=== PATIENT | male | born 1965 | race Caucasian/White ===

== ENCOUNTER 2018-05-23 17:09 | Emergency (ER) | payer MEDICAID, SELFPAY ==
--- NOTE | 2018-05-23 17:26 | NUR.NOTE ---
persistent productive cough for 10 days. states that he also had pain in the lung with the breathing
[2018-05-23 17:29] VITALS: BP 140/70; PULSE 101; RESP 17; TEMP 36; O2SAT 98
[2018-05-23] MEDS: predniSONE 20 MG TAB 60 MG PO (19:05)
[2018-05-23] MEDS: Azithromycin 250 MG TAB 500 MG PO (19:05)
[2018-05-23] MEDS: Albuterol/Ipratropium 3 ML UPD VIAL UPD (19:05)
--- NOTE | 2018-05-23 19:46 | DI.RAD_ITS ---
SYMPTOM/DIAGNOSIS: COUGH, ? PNEUMONIA PA AND LATERAL CHEST: The heart is not enlarged. The lungs are clear. No pleural effusion is seen. Previously noted left lung radiodensities seen on previous chest film of 09/05/17 have resolved. CONCLUSION: No evidence of acute process.
--- NOTE | 2018-05-23 20:09 | DI.VRAD_ITS ---
EXAM: XR Chest, 2 Views EXAM DATE/TIME: 05/23/2018 6:02 PM CLINICAL HISTORY: 53 years old, male; Signs and symptoms; Cough TECHNIQUE: XR of the chest, 2 views. COMPARISON: CR PORTABLE CHEST ONE VIEW 09/05/2017 10:12 AM FINDINGS: Lungs: Unremarkable. No consolidation. Pleural space: Unremarkable. No pleural effusion. No pneumothorax. Heart/Mediastinum: Unremarkable. No cardiomegaly. Bones/joints: No acute skeletal abnormalities. Degenerative changes of the thoracic spine. IMPRESSION: Negative for acute thoracic pathology. Dictated and Authenticated by: Mike Almaraz MD. Ordering:BELINDA Poon MD
--- NOTE | 2018-05-23 20:11 | ED.GENADUL_ITS ---
Discharge Plan Disposition Patient Disposition: HOME Condition: Good Discharge Details Chief Complaint: RespSymp Clinical Impression: COPD exacerbation Primary Care Provider: Clary Haywood ED Provider: Cleve Mcclendon Home Meds and New Rx's Prescriptions: New azithromycin 250 mg tablet 250 mg PO DAILY 4 Days Qty: 4 RF: 0 prednisone 20 mg tablet 60 mg PO DAILY 5 Days Qty: 15 RF: 0 No Action Advair Diskus 1 EACH blister with device 1 puff Inhalation BID RF: 0 glipizide 10 MG tablet 20 mg PO DAILY RF: 0 acarbose [Precose] 50 MG tablet 50 mg PO TID RF: 0 atenolol 25 MG tablet 25 mg PO DAILY RF: 0 omeprazole 20 MG capsule,delayed release(DR/EC) 20 mg PO DAILY RF: 0 B-complex with vitamin C 1 EACH tablet 1 ea PO DAILY RF: 0 Novolog PenFill U-100 Insulin 100 UNIT/1 ML cartridge 20 unit SQ QMEALS RF: 0 Spiriva with HandiHaler 1 PUFF capsule, w/inhalation device 1 puff Inhalation DAILY Qty: 1 RF: 0 ProAir HFA 200 PUFF HFA aerosol inhaler 2 puff Inhalation BID RF: 0 Latuda 80 MG tablet 80 mg PO DAILY RF: 0 ipratropium-albuterol 3 ML solution for nebulization 3 ml UPD Q6H PRN PRNQty: 30 RF: 0 atorvastatin [Lipitor] 80 MG tablet 1 tab PO HS RF: 0 lisinopril 20 MG tablet 20 mg PO DAILY RF: 0 nicotine [Nicoderm CQ] 1 EACH patch 24 hour 21 mg Transdermal DAILY RF: 0 epinephrine [EpiPen 2-Cristian] 0.3 MG/0.3 ML auto-injector 1 ea UD PRN PRNRF: 0 prazosin 2 MG capsule 4 mg PO HS RF: 0 Lantus Solostar U-100 Insulin 100 UNIT/ML insulin pen 40 unit Sub-Q QPM RF: 0 Lantus Solostar U-100 Insulin 100 UNIT/ML insulin pen 120 unit SQ QAM RF: 0 Discharge Instructions Instructions: COPD (Chronic Obstructive Pulmonary Disease) (ED) Additional Instructions: Please take the steroid as directed. Please take the antibiotic as directed. Please use your breathing treatment every 4 hours for the next 48 hours. If you notice any worsening of your symptoms, or any new symptoms such as vomiting, diarrhea, fever, chills, shortness of breath, chest pain, numbness, weakness, or fainting , please return immediately to the emergency department for reevaluation. Please follow up with your primary care provider as soon as possible for reassessment and reevaluation. As always, it was a pleasure participating in your medical care today. Referrals: Clary Haywood [Primary Care Provider] - Discharge Data Discharge Date/Time-TO BE ENTERED AT DEPARTURE: 05/23/18 20:22 Medical Decision Making This is a pleasant 53-year-old male who presents for 10 days of cough with productive yellow sputum, he denies any significant chest pain, but does have a mild amount of pain only when coughing. He demonstrates no red flags concerning for pulmonary embolism. He has no evidence of significant tachycardia or hypoxemia or tachypnea. Patient was given 3 breathing treatments here in the emergency department and had a notable improvement of his symptomatology. I have given steroid, because of his risk factors of reactive airway disease and chronicity of his symptoms in conjunction with the productive yellow sputum and concern for worsening bronchitis versus mild pneumonia. X-ray was ordered shows no signs of acute significant pneumonia however with the patient's risk factors and COPD exacerbation I do feel that he would benefit from antibiotics. We will give azithromycin, continued recommendation for home inhaler, steroids, and close follow-up with his PCP. I have extensively reviewed the treatment plan and discharge instructions with the patient. I have addressed all patient concerns at this time. The patient was made aware of what symptoms to monitor for that would warrant a return to the emergency department. Discussed the plan with the patient, they demonstrate verbal understanding and agreement with our assessment and plan at this time. FINDINGS: Lungs: Unremarkable. No consolidation. Pleural space: Unremarkable. No pleural effusion. No pneumothorax. Heart/Mediastinum: Unremarkable. No cardiomegaly. Bones/joints: No acute skeletal abnormalities. Degenerative changes of the thoracic spine. IMPRESSION: Negative for acute thoracic pathology. Thank you for allowing us to participate in the care of your patient. Dictated and Authenticated by: Mike Hahn MD HPI General Date/Time Provider Initiated Documentation: 05/23/18 17:51 . HPI Narrative: This is a 53-year-old male with a past medical history of tobacco a buse, hypertension, high cholesterol, and asthma. He presents today for evaluation of 10 days of cough, with productive yellow sputum. He is normally on a baseline of 2 L of home oxygen at all times. Patient denies any chest pressure, arm pain, neck pain or shoulder pain. He denies any exertional chest pain. He does admit to mild pain only when he coughs. Denies PE risk factors such as recent long car rides, immobilization, recent surgery, prior history of DVT or PE, family history of PE or DVT, morbid obesity, exogenous estrogen and smoking, hemoptysis, history of cancer. Patient states that he had a similar episode like this last year, however he let it go much longer and felt notably worse at that time. He states that aside for being more mild feels similar to that last episode. At that time he was diagnosed with pneumonia and reactive airway disease exacerbation. Patient denies any IV or illicit drug use. Denies any fever or chills. No other complaints at this time. Related Data Home Medications Medication Instructions Recorded Confirmed B-complex with vitamin C 1 ea PO DAILY 08/09/12 05/23/18 Novolog PenFill U-100 Insulin 20 unit SQ QMEALS 08/09/12 05/23/18 acarbose [Precose] 50 mg PO TID 08/09/12 05/23/18 atenolol 25 mg PO DAILY 08/09/12 05/23/18 glipizide 20 mg PO DAILY 08/09/12 05/23/18 omeprazole 20 mg PO DAILY 08/09/12 05/23/18 Advair Diskus 1 puff INHALATION BID puff 08/28/12 05/23/18 Spiriva with HandiHaler 1 puff INHALATION DAILY #1 laura 07/08/13 05/23/18 ProAir HFA 2 puff INHALATION BID 12/29/15 05/23/18 Lantus Solostar U-100 Insulin 40 unit SUB-Q QPM 09/04/17 05/23/18 Lantus Solostar U-100 Insulin 120 unit SQ QAM 09/04/17 05/23/18 atorvastatin [Lipitor] 1 tab PO HS 09/04/17 05/23/18 epinephrine [EpiPen 2-Cristian] 1 ea UD PRN PRN 09/04/17 05/23/18 lisinopril 20 mg PO DAILY 09/04/17 05/23/18 nicotine [Nicoderm CQ] 21 mg TRANSDERMAL DAILY 09/04/17 05/23/18 prazosin 4 mg PO HS 09/04/17 05/23/18 Latuda 80 mg PO DAILY 09/05/17 05/23/18 ipratropium-albuterol 3 ml UPD Q6H PRN PRN #30 vial 09/08/17 05/23/18 azithromycin 250 mg PO DAILY 4 Days #4 tab 05/23/18 prednisone 60 mg PO DAILY 5 Days #15 tab 05/23/18 Previous Rx's Medication Instructions Recorded Spiriva with HandiHaler 1 puff INHALATION DAILY #1 laura 07/08/13 ipratropium-albuterol 3 ml UPD Q6H PRN PRN #30 vial 09/08/17 azithromycin 250 mg PO DAILY 4 Days #4 tab 05/23/18 prednisone 60 mg PO DAILY 5 Days #15 tab 05/23/18 Allergies Allergy/AdvReac Type Severity Reaction Status Date / Time Fish Containing Products Allergy Severe Anaphylaxsi Verified 09/05/17 09:53 s tree nut [Tree Nut] Allergy Severe Anaphylaxsi Verified 09/05/17 09:53 s metformin Allergy Unknown Per office Verified 09/05/17 09:53 H&P venlafaxine HCl AdvReac Severe seizures Verified 09/05/17 09:53 [From Effexor] diclofenac [Diclofenac] AdvReac Intermediate Headache Verified 09/05/17 09:53 misoprostol AdvReac Intermediate Headache Verified 09/05/17 09:53 General Stated Complaint: RespSymp LINDY: 4 Review of Systems Review of Systems All systems reviewed & are unremarkable except as noted in HPI and below PFSH Medical History Diabetes Hypertension Obesity Surgical History Colonoscopy - MAC Social History current occupational status: unemployed current occupation: off work right now until july Smoking/Tobacco Use Status: Current every day tobacco type: cigarettes alcohol intake: current alcohol intake frequency: a few times a month substance use type: does not use Exam Narrative Exam Narrative: 1.Const: Well-nourished, Well-developed, appearing stated age 2.Eyes: PERRL, no conjunctival injection, and symmetrical lids. 3.ENT: Atraumatic external nose and ears. Moist MM. Neck: Symmetric, trachea midline, No thyromegaly. 4.CVS: +S1/S2, No murmurs or gallops. Peripheral pulses 2+ and equal in all extremities. Brisk capillary refill in all extremities. 5.RESP: Unlabored respiratory effort. Minimal wheeze, no rhonchi or rales. 6.GI: Soft, Nontender/Nondistended, No hepatosplenomegaly. No guarding or rebound. 7.MSK: Normocephalic/Atraumatic, Extremities w/o deformity or ttp No cyanosis or clubbing, Normal movement of all extremities 8.Skin: Warm, Dry. No rashes or lesions. 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 Sensation grossly intact, no focal neurologic deficits. 10.Psych: (AAO) x3. Appropriate mood and affect Course Vital Signs Temperature 36 C L 05/23/18 17:29 Pulse 101 H 05/23/18 17:29 Respiratory Rate 17 05/23/18 17:29 Blood Pressure 140/70 05/23/18 17:29 Pulse Oximetry 98 05/23/18 17:29 Temperature 36 C L 05/23/18 17:29 Temperature Source Skin 05/23/18 17:29 Pulse 101 H 05/23/18 17:29 Respiratory Rate 17 05/23/18 17:29 Blood Pressure 140/70 05/23/18 17:29 Blood Pressure Position Sitting 05/23/18 17:29 Pulse Oximetry 98 05/23/18 17:29 Oxygen Delivery Method Room Air 05/23/18 17:29 Oxygen Flow Rate 0 05/23/18 17:29 Pain Level 4 05/23/18 17:29
[2018-05-23 20:19] VITALS: BP 148/73; PULSE 100; RESP 18; TEMP 36.8; O2SAT 94
== END 2018-05-23 20:22 | disposition home or self-care (01) ==
PROVIDERS: Emergency Provider Student in an Organized Health Care Education/Training Program; PCP Nurse Practitioner Family
DX: J44.1 Chronic obstructive pulmonary disease with (acute) exacerbation (principal); I10 Essential (primary) hypertension; F17.210 Nicotine dependence, cigarettes, uncomplicated
CPT/HCPCS: 94640; 99283; 71046; J7512; J7620

== ENCOUNTER 2018-06-06 12:06 | Emergency (ER) | payer MEDICAID, SELFPAY ==
[2018-06-06 12:08] VITALS: BP 138/85; PULSE 97; RESP 18; TEMP 36.6; O2SAT 97
--- NOTE | 2018-06-06 12:44 | W.ED.GENAD ---
Discharge Plan Disposition Patient Disposition: HOME Condition: Good Discharge Details Chief Complaint: RespSymp Clinical Impression: Pneumonia, COPD (chronic obstructive pulmonary disease), Cough Primary Care Provider: Clary Haywood ED Provider: Cleve Mcclendon Home Meds and New Rx's Prescriptions: New doxycycline hyclate 100 mg tablet 100 mg PO BID Qty: 20 RF: 0 prednisone 10 mg tablet 10 mg PO DAILY Qty: 50 RF: 0 ipratropium-albuterol 0.5 mg-3 mg(2.5 mg base)/3 mL solution for nebulization 3 ml IH Q6H Qty: 90 RF: 0 No Action Advair Diskus 1 EACH blister with device 1 puff Inhalation BID RF: 0 glipizide 10 MG tablet 20 mg PO DAILY RF: 0 acarbose [Precose] 50 MG tablet 50 mg PO TID RF: 0 atenolol 25 MG tablet 25 mg PO DAILY RF: 0 omeprazole 20 MG capsule,delayed release(DR/EC) 20 mg PO DAILY RF: 0 B-complex with vitamin C 1 EACH tablet 1 ea PO DAILY RF: 0 Novolog PenFill U-100 Insulin 100 UNIT/1 ML cartridge 20 unit SQ QMEALS RF: 0 Spiriva with HandiHaler 1 PUFF capsule, w/inhalation device 1 puff Inhalation DAILY Qty: 1 RF: 0 ProAir HFA 200 PUFF HFA aerosol inhaler 2 puff Inhalation BID RF: 0 Latuda 80 MG tablet 80 mg PO DAILY RF: 0 ipratropium-albuterol 3 ML solution for nebulization 3 ml UPD Q6H PRN PRNQty: 30 RF: 0 atorvastatin [Lipitor] 80 MG tablet 1 tab PO HS RF: 0 lisinopril 20 MG tablet 20 mg PO DAILY RF: 0 nicotine [Nicoderm CQ] 1 EACH patch 24 hour 21 mg Transdermal DAILY RF: 0 epinephrine [EpiPen 2-Cristian] 0.3 MG/0.3 ML auto-injector 1 ea UD PRN PRNRF: 0 prazosin 2 MG capsule 4 mg PO HS RF: 0 Lantus Solostar U-100 Insulin 100 UNIT/ML insulin pen 40 unit Sub-Q QPM RF: 0 Lantus Solostar U-100 Insulin 100 UNIT/ML insulin pen 120 unit SQ QAM RF: 0 Discharge Instructions Instructions: COPD (Chronic Obstructive Pulmonary Disease) (ED), Pneumonia (ED) Additional Instructions: Please take the antibiotic and steroid as directed. Please take your breathing treatments every 6 hours as directed. Please follow-up promptly with Dr. Clary Haywood next week. If you notice any worsening of your symptoms, or any new symptoms such as vomiting, diarrhea, fever, chills, shortness of breath, chest pain, numbness, weakness, or fainting , please return immediately to the emergency department for reevaluation. Please follow up with your primary care provider as soon as possible for reassessment and reevaluation. As always, it was a pleasure participating in your medical care today. Referrals: Clary Haywood [Primary Care Provider] - Medical Decision Making This is a very pleasant 53-year-old male who presents for evaluation of cough. He was seen and treated here 14 days ago for cough, was diagnosed with mild pneumonia, vital signs were reassuring at that time. He was given azithromycin and prednisone eating treatments, he is notably improved initially during the treatment course, but once his steroids and azithromycin work on his symptoms gradually returned, he now states that he is at the baseline of where he was at before. Physical exam demonstrates minimal wheeze, very reassuring vital signs with no evidence of severe tachycardia, tachypnea, hypoxemia. I did discuss with the patient reevaluation with EKG, labs and chest x-ray and the patient made it very clear that he did not want any additional workup. Although I do not think that this is ideal I do think that it is reasonable as he has reassuring vital signs, and no significant change in his clinical disposition. He shows no signs of acute respiratory distress or other abnormality. Respecting the patient's wishes and the patient demonstrating full understanding of the risks of this course of action we will prescribe doxycycline, refill his DuoNeb treatments, and do a more prolonged steroid course. I discussed the importance of close follow-up and prompt return if he notes any worsening of his symptoms. And I always extended the offer that he can have the full evaluation and workup at any time if he so please. I have extensively reviewed the treatment plan and discharge instructions with the patient. I have addressed all patient concerns at this time. The patient was made aware of what symptoms to monitor for that would warrant a return to the emergency department. Discussed the plan with the patient, they demonstrate verbal understanding and agreement with our assessment and plan at this time. HPI General Date/Time Provider Initiated Documentation: 06/06/18 12:24. HPI Narrative: This is a pleasant 53-year-old male with a past medical history of COPD, with a baseline of 2 L of home oxygen, diabetes, hypertension, high cholesterol, who presents today for evaluation of cough. The patient was seen and assessed here 14 days ago where he was diagnosed with COPD and clinical pneumonia. He had a notable cough at that time with productive sputum. The patient was started on prednisone and a Z-Cristian, as well as continued on his inhaler. Patient states that his symptoms nearly completely resolved at the end of the course of the steroids and the antibiotic however his symptoms gradually returned and came back. He now continues to have cough, with productive green and yellow sputum. He denies any hemoptysis. He denies any significant chest pain, severe pleuritic chest pain, chest heaviness, arm neck or shoulder pain, exertional chest pain, fever, chills, vomiting, diarrhea, numbness tingling or weakness. He denies any other new complaints or other modifying factors. Related Data Home Medications Medication Instructions Recorded Confirmed B-complex with vitamin C 1 ea PO DAILY 08/09/12 05/23/18 Novolog PenFill U-100 Insulin 20 unit SQ QMEALS 08/09/12 05/23/18 acarbose [Precose] 50 mg PO TID 08/09/12 05/23/18 atenolol 25 mg PO DAILY 08/09/12 05/23/18 glipizide 20 mg PO DAILY 08/09/12 05/23/18 omeprazole 20 mg PO DAILY 08/09/12 05/23/18 Advair Diskus 1 puff INHALATION BID puff 08/28/12 05/23/18 Spiriva with HandiHaler 1 puff INHALATION DAILY #1 laura 07/08/13 05/23/18 ProAir HFA 2 puff INHALATION BID 12/29/15 05/23/18 Lantus Solostar U-100 Insulin 40 unit SUB-Q QPM 09/04/17 05/23/18 Lantus Solostar U-100 Insulin 120 unit SQ QAM 09/04/17 05/23/18 atorvastatin [Lipitor] 1 tab PO HS 09/04/17 05/23/18 epinephrine [EpiPen 2-Cristian] 1 ea UD PRN PRN 09/04/17 05/23/18 lisinopril 20 mg PO DAILY 09/04/17 05/23/18 nicotine [Nicoderm CQ] 21 mg TRANSDERMAL DAILY 09/04/17 05/23/18 prazosin 4 mg PO HS 09/04/17 05/23/18 Latuda 80 mg PO DAILY 09/05/17 05/23/18 ipratropium-albuterol 3 ml UPD Q6H PRN PRN #30 vial 09/08/17 05/23/18 doxycycline hyclate 100 mg PO BID #20 tab 06/06/18 ipratropium-albuterol 3 ml IH Q6H #90 ml 06/06/18 prednisone 10 mg PO DAILY #50 tab 06/06/18 Previous Rx's Medication Instructions Recorded Spiriva with HandiHaler 1 puff INHALATION DAILY #1 laura 07/08/13 ipratropium-albuterol 3 ml UPD Q6H PRN PRN #30 vial 09/08/17 doxycycline hyclate 100 mg PO BID #20 tab 06/06/18 ipratropium-albuterol 3 ml IH Q6H #90 ml 06/06/18 prednisone 10 mg PO DAILY #50 tab 06/06/18 Allergies Allergy/AdvReac Type Severity Reaction Status Date / Time Fish Containing Products Allergy Severe Anaphylaxsi Verified 06/06/18 12:12 s tree nut [Tree Nut] Allergy Severe Anaphylaxsi Verified 06/06/18 12:12 s metformin Allergy Unknown Per office Verified 06/06/18 12:12 H&P venlafaxine HCl AdvReac Severe seizures Verified 06/06/18 12:12 [From Effexor] diclofenac [Diclofenac] AdvReac Intermediate Headache Verified 06/06/18 12:12 misoprostol AdvReac Intermediate Headache Verified 06/06/18 12:12 General Stated Complaint: RespSymp LINDY: 3 Review of Systems Review of Systems All systems reviewed & are unremarkable except as noted in HPI and below PFSH Medical History Diabetes Hypertension Obesity Surgical History Colonoscopy - MAC Social History current occupational status: unemployed current occupation: off work right now until july Smoking and Tabacco status: Current every day tobacco type: cigarettes alcohol intake: current alcohol intake frequency: a few times a month substance use type: does not use Exam Narrative Exam Narrative: 1.Const: Well-nourished, Well-developed, appearing stated age 2.Eyes: PERRL, no conjunctival injection, and symmetrical lids. 3.ENT: Atraumatic external nose and ears. Moist MM. Neck: Symmetric, trachea midline, No thyromegaly. 4.CVS: +S1/S2, No murmurs or gallops. Peripheral pulses 2+ and equal in all extremities. Brisk capillary refill in all extremities. 5.RESP: Unlabored respiratory effort. Minimal wheeze, no significant crackles. No rhonchi. 6.GI: Soft, Nontender/Nondistended, No hepatosplenomegaly. No guarding or rebound. 7.MSK: Normocephalic/Atraumatic, Extremities w/o deformity or ttp No cyanosis or clubbing, Normal movement of all extremities, no calf tenderness. 8.Skin: Warm, Dry. No rashes or lesions. 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 Sensation grossly intact, no focal neurologic deficits. 10.Psych: (AAO) x3. Appropriate mood and affect Course Vital Signs Temperature 36.6 C 06/06/18 12:08 Pulse 97 H 06/06/18 12:08 Respiratory Rate 18 06/06/18 12:08 Blood Pressure 138/85 06/06/18 12:08 Pulse Oximetry 97 06/06/18 12:08 Temperature 36.6 C 06/06/18 12:08 Temperature Source Temporal Artery Scan 06/06/18 12:08 Pulse 97 H 06/06/18 12:08 Respiratory Rate 18 06/06/18 12:08 Respiratory Effort Incrsd Work of Breathing 06/06/18 12:11 Blood Pressure 138/85 06/06/18 12:08 Blood Pressure Position Sitting 06/06/18 12:08 Pulse Oximetry 97 06/06/18 12:08 Oxygen Delivery Method Nasal Cannula 06/06/18 12:08 Oxygen Flow Rate 2 06/06/18 12:08 Pain Level 0 06/06/18 12:08
--- NOTE | 2018-06-06 14:14 | NUR.NOTE ---
Nursing Note: Patient called as he had wanted cough medication> MD gave this scribe order to call into pharmacy Tessalon Perles 100mg po TID Qty [address] Mcclendon. Pharmacist took order over phone.
== END 2018-06-06 12:55 | disposition home or self-care (01) ==
PROVIDERS: Emergency Provider Student in an Organized Health Care Education/Training Program; PCP Nurse Practitioner Family
DX: J18.9 Pneumonia, unspecified organism (principal); J44.9 Chronic obstructive pulmonary disease, unspecified; I10 Essential (primary) hypertension; E11.9 Type 2 diabetes mellitus without complications; Z99.2 Dependence on renal dialysis; Z79.4 Long term (current) use of insulin
CPT/HCPCS: 99283

== ENCOUNTER 2018-06-27 03:10 | Outpatient (CLI) | payer MEDICAID, SELFPAY ==
--- NOTE | 2018-06-27 10:00 | PFT_ITS ---
PULMONARY FUNCTION TEST REPORT DATE OF SERVICE: June 27, 2018 REQUESTING PROVIDER: Clary Haywood N.P. Spirometry shows moderately severe obstructive airways disease with no significant bronchodilator response. Lung volumes show no evidence of restriction. Diffusion capacity normal. Airways resistance elevated. IMPRESSION: Moderately severe obstructive airways disease with no significant bronchodilator response. When this study was compared to previous from 10/22/12, 04/04/13 and 06/11/15, the patient has a fairly stable FVC, but overall has improved by 130 cc's. FEV1 has also mostly remained stable, but overall has improved by 310 cc's. OLEG/eder D/
[2018-06-27] MEDS: Inhaler, Assist Device 1 EACH MC (11:23)
[2018-06-27] MEDS: Albuterol HFA 18 GM 200 PUFF INH IH (11:23)
== END 2018-06-27 03:30 ==
PROVIDERS: PCP Nurse Practitioner Family; Visit Provider Nurse Practitioner Family
DX: J44.9 Chronic obstructive pulmonary disease, unspecified (principal); F17.210 Nicotine dependence, cigarettes, uncomplicated
CPT/HCPCS: 94060; 94150; 94726; 94729

== ENCOUNTER 2018-07-06 00:38 | Outpatient (CLI) | payer MEDICAID, SELFPAY ==
--- NOTE | 2018-07-06 10:46 | MERGE_ITS ---
*[facility]* *[facility]* [address] [place] [address] Date of study: 07/06/2018 Transthoracic Echocardiography M-mode, complete 2D, complete spectral Doppler, and color Doppler *STUDY CONCLUSIONS* Summary: 1. Left ventricle: The cavity size was normal. Wall thickness was increased in a pattern of mild LVH. Systolic function was normal. The estimated ejection fraction was 60-65%. Wall motion was normal; there were no regional wall motion abnormalities. 2. Right ventricle: The cavity size was normal. Wall thickness was normal. Systolic function was normal. *PATIENT PRESENTATION* Height: 160cm ((63in) ) S/D Pressure: 138 / 84 Weight: 108.9kg ((239.5lb) ) BSA: 2.26m^2 Test start time: 10:45 AM. Test stop time: 11:45 AM. PERFORMING Unknown PERFORMING [facility] [employer] MATE Mikaela Boudreaux Sabine J REFERRING Watson, Sabine J *PROCEDURE DATA* Procedure information: This study was interpreted by [facility]. Pertinent images and digital data are archived for permanent storage and are available for subsequent review. Comparison was made to the study of 12/18/2014. Study status: Routine. Transthoracic echocardiography. M-mode, complete 2D, complete spectral Doppler, and color Doppler. A Transthoracic Echocardiogram was performed. Scanning was performed from the parasternal, apical, subcostal, and suprasternal notch acoustic windows. Images were obtained using an [facility] 2000 cardiac ultrasound machine. Study completion: The patient tolerated the procedure well. History: PMH: Abnormal EKG. *CARDIAC ANATOMY* Left ventricle: The cavity size was normal. Wall thickness was increased in a pattern of mild LVH. Systolic function was normal. The estimated ejection fraction was 60-65%. Wall motion was normal; there were no regional wall motion abnormalities. Aortic valve: Trileaflet; normal thickness leaflets. Mobility was not restricted. Doppler: Transvalvular velocity was within the normal range. There was no stenosis. There was no significant regurgitation. VTI ratio of LVOT to aortic valve: 0.82. Valve area (VTI): 2.6cm^2. Indexed valve area (VTI): 1.1cm^2/m^2. Peak velocity ratio of LVOT to aortic valve: 0.72. Valve area (Vmax): 2.2cm^2. Indexed valve area (Vmax): 1cm^2/m^2. Mean velocity ratio of LVOT to aortic valve: 0.67. Valve area (Vmean): 2.1cm^2. Indexed valve area (Vmean): 0.9cm^2/m^2. Mean gradient (S): 5.8mm Hg. Peak gradient (S): 12.5mm Hg. Aorta: Aortic root: The aortic root was normal in size. Ascending aorta: The ascending aorta was normal in size. Mitral valve: Structurally normal valve. Mobility was not restricted. Doppler: Transvalvular velocity was within the normal range. There was no evidence for stenosis. There was no significant regurgitation. Valve area by pressure half-time: 3.2cm^2. Indexed valve area by pressure half-time: 1.4cm^2/m^2. Peak gradient (D): 2.7mm Hg. Left atrium: The atrium was normal in size. Right ventricle: The cavity size was normal. Wall thickness was normal. Systolic function was normal. Pulmonic valve: Doppler: Transvalvular velocity was within the normal range. There was no evidence for stenosis. There was no significant regurgitation. Peak gradient (S): 3.8mm Hg. Tricuspid valve: Structurally normal valve. Doppler: Transvalvular velocity was within the normal range. There was no evidence for stenosis. There was trivial regurgitation. Pulmonary artery: Pulmonary systolic pressure was within the normal range. Right atrium: The atrium was normal in size. Pericardium: A prominent pericardial fat pad was present. There was no pericardial effusion. Systemic veins: Inferior vena cava: The vessel was normal in size. The respirophasic diameter changes were in the normal range (greater than or equal to 50%), consistent with normal central venous pressure. Measurements Left ventricle Value Reference LV ID, ED, PLAX 4.4 cm 3.5 - 6.0 LV ID, ES, PLAX 2.8 cm 2.1 - 4.0 LV PW thickness, ED, PLAX 1.1 cm LV end-diastolic volume, 1-p A2C 71 ml LV ejection fraction, 1-p A2C 42 % LV end-diastolic volume, 1-p A4C 85 ml LV ejection fraction, 1-p A4C 52 % LV e', lateral 0.094 m/sec LV E/e', lateral 9 LV e', medial 0.103 m/sec LV E/e', medial 8 LV e', average 0.098 m/sec LV E/e', average 8 Ventricular septum Value Reference IVS thickness, ED, PLAX 1.1 cm LVOT Value Reference LVOT ID, A-P 2.0 cm LVOT area 3.1 cm^2 LVOT peak velocity, S 1.27 m/sec LVOT mean velocity, S 0.74 m/sec LVOT VTI, S 21.4 cm LVOT peak gradient, S 6.5 mm Hg LVOT mean gradient, S 2.7 mm Hg Stroke volume (SV), LVOT DP 67 ml Stroke index (SV/bsa), LVOT DP 29 ml/m^2 Aortic valve Value Reference Aortic valve peak velocity, S 1.8 m/sec Aortic valve mean velocity, S 1.1 m/sec Aortic valve VTI, S 26.0 cm Aortic mean gradient, S 5.8 mm Hg Aortic peak gradient, S 12.5 mm Hg VTI ratio, LVOT/AV 0.82 Aortic valve area, VTI 2.6 cm^2 Velocity ratio, peak, LVOT/AV 0.72 Aortic valve area, peak velocity 2.2 cm^2 Velocity ratio, mean, LVOT/AV 0.67 Aortic valve area, mean velocity 2.1 cm^2 Aortic valve area/bsa, mean velocity 0.9 cm^2/m^2 Aorta Value Reference Aortic root ID, ED 3.2 cm Ascending aorta ID, A-P, S 3.1 cm Left atrium Value Reference LA ID, A-P, ES 3.5 cm LA ID/bsa, A-P 1.6 cm/m^2 <=2.2 LA area, ES, A4C 12.4 cm^2 8.8 - 23.4 LA area, ES, A2C 14 cm^2 LA volume/bsa, S 17 ml/m^2 LA volume, ES, 2-p 32 ml LA volume/bsa, ES, 2-p 14 ml/m^2 LA/aortic root ratio 1.12 Mitral valve Value Reference Mitral E-wave peak velocity 0.83 m/sec Mitral A-wave peak velocity 1.05 m/sec Mitral deceleration time (H) 235 ms 150 - 230 Mitral pressure half-time 68 ms Mitral peak gradient, D 2.7 mm Hg Mitral E/A ratio, peak 0.79 Mitral valve area, PHT, DP 3.2 cm^2 Right atrium Value Reference RA area, ES, A4C 12.2 cm^2 8.3 - 19.5 Pulmonic valve Value Reference Pulmonic peak gradient, S 3.8 mm Hg Legend: (L) and (H) hedy values outside specified reference range. I have personally reviewed the images and have reviewed and edited the reported findings. Electronically signed by Deepika Harris 07/08/2018 20:59
== END 2018-07-06 00:58 ==
PROVIDERS: PCP Nurse Practitioner Family; Visit Provider Nurse Practitioner Family
DX: R94.31 Abnormal electrocardiogram [ECG] [EKG] (principal); I10 Essential (primary) hypertension; E11.9 Type 2 diabetes mellitus without complications
CPT/HCPCS: 93306

== ENCOUNTER 2018-07-12 00:32 | Outpatient (CLI) | payer MEDICAID, SELFPAY ==
--- NOTE | 2018-07-12 13:34 | DI.MRI_ITS ---
SYMPTOMS/DIAGNOSIS: LEFT SCIATICA, M54.32, CHRONIC LOW BACK PAIN, S/P INJURY 16 YEARS AGO, INCREASING LEFT LEG SYMPTOMS, NUMBNESS IN LEFT LEG, PAIN IN RIGHT LEG LUMBAR MRI: The examination was carried out according to the usual protocol. T1 and T2 sagittal, T1 STIR sagittal, T1 axial and T2 axial and T2 axial MSMA pulse sequences were performed. The bony signal is unremarkable. Again noted is a slightly diminished signal in the L4-5 disc interspace and L5-S1 disc interspace. At L1-2, there is no evidence of a disc protrusion. Facet joint DJD is evident. There is no evidence of spinal stenosis. At L2-3, there is no evidence of a disc protrusion. There are mild degenerative changes involving the facet joints and no evidence of spinal stenosis. At L3-4, there is no evidence of a disc protrusion. Degenerative facet joint changes are noted. There is no evidence of spinal stenosis. At L4-5, there is no evidence of a disc protrusion, mild facet joint degenerative changes and there is no evidence of significant spinal stenosis. At L5-S1, there is no evidence of a disc herniation, moderate facet joint DJD is identified and there is no evidence of spinal stenosis. There is no intrinsic abnormality involving the lower dorsal cord, conus or filum terminale. SUMMARY: No significant interval change when compared with the prior study of 09/10/2013. Again noted is evidence of facet joint DJD with no evidence of significant spinal stenosis.
== END 2018-07-12 00:52 ==
PROVIDERS: PCP Nurse Practitioner Family; Visit Provider Nurse Practitioner Family
DX: M54.32 Sciatica, left side (principal); M54.5 Low back pain; R20.0 Anesthesia of skin; M47.26 Other spondylosis with radiculopathy, lumbar region; M51.16 Intervertebral disc disorders with radiculopathy, lumbar region
CPT/HCPCS: 72148

== ENCOUNTER 2018-08-07 02:41 | Outpatient (RCR) | payer MEDICAID, SELFPAY | END 2018-08-14 23:59 | disposition home or self-care (01) | LOC: PRC 02:41 | PROVIDERS: PCP Nurse Practitioner Family; Visit Provider Nurse Practitioner Family | DX: J44.9 Chronic obstructive pulmonary disease, unspecified (principal); Z51.89 Encounter for other specified aftercare ==

== ENCOUNTER 2018-09-11 12:55 | Outpatient (CLI) | payer MEDICAID, SELFPAY ==
[2018-09-11 13:11] VITALS: BP 125/69; PULSE 89; RESP 22; TEMP 37.7; O2SAT 94
[2018-09-11] MEDS: Omnipaque 240 MG/ML 50 ML BTL IJ (13:46)
[2018-09-11] MEDS: methylPREDNISolone ACETATE 40 MG/ML VIAL IJ (13:46)
--- NOTE | 2018-09-11 13:48 | DI.RAD_ITS ---
SYMPTOMS/DIAGNOSIS: LUMBAR RADICULOPATHY PAIN CLINIC LUMBAR SPINE: Fluoroscopy Time: 19.3 sec 12.54 mGy Fluoroscopy was utilized by Dr. Barba during the performance of a lumbar spine injection. Please refer to the procedure report for complete details.
--- NOTE | 2018-09-11 13:49 | PDOC.PAIN ---
Pain Clinic Procedure Note Current Active Problems Problem Status Onset Lumbosacral radiculopathy Acute Lumbar Epidural Steroid Injection Procedure Note COMMENTS: I did review the Pain Clinic note from Ms. Manzanares from 08/27/18. ABHI ARIAS JR has been referred to the [facility] for lumbar epidural steroid injection. The patient was greeted by the nurse who verified patients name and . Patient was then taken to the fluoroscopy suite. The patient was interviewed and the medial record reviewed. There were no medical, pharmacologic, radiographic, or other structural contraindications to attempting fluoroscopically guided lumbar epidural steroid injection. Risks and expected side effects as well as potential benefits of the procedure were reviewed and voiced concerns expressed. The patient consent form was signed and witnessed. Standard patient time-out procedure was performed. The patient was placed in the prone position on the fluoroscopy table and automated blood pressure cuff and pulse oximeter applied. The skin entry point for entering/approaching the epidural space at L4-L5 and marked. Following thorough chlorhexadine preparation of the skin and draping and 1% lidocaine infiltration of the skin entry point and subcutaneous tissues, a 18 gauge Touhy needle was placed under fluoroscopic guidance and with loss of resistance technique into the epidural space. Needle tip placement and depth were aided and confirmed by fluoroscopy. There was no paresthesia or return of blood or CSF through the needle. 1 cc's of Omnipaque 240 was injected with clear epidural spread confirmed with fluoroscopy. 80mg depomedrol was injected. There was not any unusual discomfort expressed by ABHI ARIAS JR. Patient's vital signs were stable throughout the procedure and were as recorded in nursing records. Follow up plans and appointments were discussed with patient. Post procedure instruction was given as documented in nursing records and having met discharge criteria and was discharged from the [facility]. COMMENTS: If this procedure is helpful, it can be completed up to 3 times per 12 months.
[2018-09-11 13:58] VITALS: BP 152/76; PULSE 88; RESP 20; O2SAT 93
== END 2018-09-11 13:15 ==
PROVIDERS: PCP Nurse Practitioner Family; Visit Provider Preventive Medicine Occupational Medicine
DX: M54.16 Radiculopathy, lumbar region (principal)
CPT/HCPCS: 62323; 72100; J1030; Q9967

== ENCOUNTER 2018-11-11 14:18 | Emergency (ER) | payer MEDICAID, SELFPAY ==
[2018-11-11] VITALS (27 sets, daily range): BP systolic 121–145; BP diastolic 54–77; PULSE 75–90; RESP 6–23; TEMP 36.8–37.1; O2SAT 94–98
--- NOTE | 2018-11-11 14:17 | W.ED.GENAD ---
Discharge Plan Disposition Patient Disposition: HOME Condition: Stable Discharge Details Chief Complaint: Chest Pain Clinical Impression: COPD (chronic obstructive pulmonary disease), Chest pain Primary Care Provider: Rodriguez Sanford ED Provider: Daquan Hollinsgworth Home Meds and New Rx's Prescriptions: New prednisone 20 mg tablet 60 mg PO DAILY 4 Days Qty: 12 RF: 0 No Action aspirin [Adult Aspirin Regimen] 81 mg tablet,delayed release (DR/EC) 81 mg PO DAILY RF: 0 Advair HFA 230-21 mcg/actuation HFA aerosol inhaler 2 puff IH BID RF: 0 gabapentin 800 mg tablet 800 mg PO QID RF: 0 glipizide 10 MG tablet 20 mg PO DAILY RF: 0 atenolol 25 MG tablet 25 mg PO DAILY RF: 0 omeprazole 20 MG capsule,delayed release(DR/EC) 20 mg PO DAILY RF: 0 B-complex with vitamin C 1 EACH tablet 1 ea PO DAILY RF: 0 Novolog PenFill U-100 Insulin 100 UNIT/1 ML cartridge 20 unit SQ QMEALS RF: 0 acarbose [Precose] 50 mg tablet 50 mg PO DIRECTED RF: 0 Spiriva with HandiHaler 1 PUFF capsule, w/inhalation device 1 puff Inhalation DAILY Qty: 1 RF: 0 albuterol sulfate [ProAir HFA] 90 mcg/actuation HFA aerosol inhaler 2 puff Inhalation PRN PRNRF: 0 Latuda 80 MG tablet 80 mg PO DAILY RF: 0 ipratropium-albuterol 3 ML solution for nebulization 3 ml UPD Q6H PRN PRNQty: 30 RF: 0 atorvastatin [Lipitor] 80 MG tablet 1 tab PO HS RF: 0 lisinopril 20 MG tablet 20 mg PO DAILY RF: 0 nicotine [Nicoderm CQ] 1 EACH patch 24 hour 21 mg Transdermal DAILY RF: 0 epinephrine [EpiPen 2-Cristian] 0.3 MG/0.3 ML auto-injector 1 ea UD PRN PRNRF: 0 prazosin 2 MG capsule 4 mg PO HS RF: 0 Lantus Solostar U-100 Insulin 100 unit/mL (3 mL) insulin pen 100 unit Sub-Q QAM RF: 0 Discharge Instructions Instructions: Chest Pain (ED) Additional Instructions: follow up with your primary care provider within one week if you have severe worsening pain, difficulty breathing or feel more ill return to the emergency department Medical Decision Making 53-year-old male with a past medical history of tobacco abuse, hypertension, high cholesterol, DM, copd on home o2, who comes in with left sided chest pain and cough. He states he had a sharp twinge of the left chest under the left nipple last night that lasted an hour or two. Denies falls, trauma, fevers, recent immobilization. He denies chest pain now, had recurrence of pain about an hour ago so came here. He does have wheezing bilaterally at the apices, no respiratory distress and is on his chronic o2 of 2L /min with o2 saturation of 97%. No evidence of dvt on exam and no pleuritic pain and no tachycardia or hypoxia so doubt acs. Symptoms seem atypical for acs, ekg unchanged, will send troponin. No tearing chest pain to suggest dissection. Will tx for copd with steroids and neb and reassess. pt remains stable and is sleeping on reassessment in no distress. He feels better, initial labs and xray unremarkable. I suspect chest wall pain from cough and copd as cause of his symptoms. will obtian delta troponin and ecg and if negative d/c on prednisone. States his cough is not significantly worse than baseline so do not feel abx indicated pt remains pain free and has no complains, no change in troponin. He feels comfortable with d/c, advised f/u with pcp and return precautions given Differential Diagnosis copd, nstemi, muscle spsam, chest wall pain Medical Records Medical records reviewed: Yes I reviewed the patient's medical records. Imaging Data Radiologic Study: Attestation: I personally reviewed and interpreted this imaging study as follows: Imaging: X-Ray My impression: no acute findings Lab Data Lab results reviewed: Yes I reviewed the patient's lab results. ECG Data Attestation: I personally reviewed and interpreted this ECG (s) as follows: Prior ECG tracings: available for review Interpretation: sinus rhythm, rate of 80, pr 156, no acute st t wave ischemic changes 2nd ekg shows rate of 82, pr 154, qtc 423 HPI General Mode of arrival: EMS. Date/Time Provider Initiated Documentation: 11/11/18 14:28. Limitations to Documentation: no limitations. Information obtained by: patient. History of Present Illness 53 year old M presents to the emergency department with the chief complaint of chest pain, described as moderate, and is localized to the chest. and it has been intermittent and now resolved. No relieving factors improve symptom(s), No exacerbating factors reported . Patient notes cough. Patient did receive the following treatments prior to arrival, none Related Data Home Medications Medication Instructions Recorded Confirmed B-complex with vitamin C 1 ea PO DAILY 08/09/12 11/11/18 Novolog PenFill U-100 Insulin 20 unit SQ QMEALS 08/09/12 11/11/18 atenolol 25 mg PO DAILY 08/09/12 11/11/18 glipizide 20 mg PO DAILY 08/09/12 11/11/18 omeprazole 20 mg PO DAILY 08/09/12 11/11/18 Spiriva with HandiHaler 1 puff INHALATION DAILY #1 laura 07/08/13 11/11/18 atorvastatin [Lipitor] 1 tab PO HS 09/04/17 11/11/18 epinephrine [EpiPen 2-Cristian] 1 ea UD PRN PRN 09/04/17 11/11/18 lisinopril 20 mg PO DAILY 09/04/17 11/11/18 nicotine [Nicoderm CQ] 21 mg TRANSDERMAL DAILY 09/04/17 11/11/18 prazosin 4 mg PO HS 09/04/17 11/11/18 Latuda 80 mg PO DAILY 09/05/17 11/11/18 ipratropium-albuterol 3 ml UPD Q6H PRN PRN #30 vial 09/08/17 11/11/18 acarbose 50 mg tablet 50 mg PO DIRECTED tab 06/13/18 11/11/18 albuterol sulfate 90 mcg/actuation 2 puff INHALATION PRN PRN gm 06/13/18 11/11/18 aerosol inhaler aspirin 81 mg tablet,delayed 81 mg PO DAILY 06/13/18 11/11/18 release fluticasone propionate-salmeterol 2 puff IH BID 06/13/18 11/11/18 230 mcg-21 mcg/actuation HFA inhaler gabapentin 800 mg tablet 800 mg PO QID tab 08/27/18 11/11/18 insulin glargine 100 unit/mL (3 100 unit SUB-Q QAM ml 08/27/18 11/11/18 mL) subcutaneous pen prednisone 60 mg PO DAILY 4 Days #12 tab 11/11/18 Previous Rx's Medication Instructions Recorded Spiriva with HandiHaler 1 puff INHALATION DAILY #1 laura 07/08/13 ipratropium-albuterol 3 ml UPD Q6H PRN PRN #30 vial 09/08/17 prednisone 60 mg PO DAILY 4 Days #12 tab 11/11/18 Allergies Allergy/AdvReac Type Severity Reaction Status Date / Time Fish Containing Products Allergy Severe Anaphylaxsi Verified 11/11/18 15:29 s tree nut [Tree Nut] Allergy Severe Anaphylaxsi Verified 11/11/18 15:29 s metformin Allergy Unknown Per office Verified 11/11/18 15:29 H&P venlafaxine HCl AdvReac Severe seizures Verified 11/11/18 15:29 [From Effexor] diclofenac [Diclofenac] AdvReac Intermediate Headache Verified 11/11/18 15:29 misoprostol AdvReac Intermediate Headache Verified 11/11/18 15:29 General LINDY: 3 Review of Systems Review of Systems All systems reviewed & are unremarkable except as noted in HPI and below Constitutional Denies chills, Denies fever(s) and Denies weakness Gastrointestinal Denies abdominal pain, Denies nausea and Denies vomiting Integumentary/Breasts Denies rash Neurologic Denies weakness [facility] Social History (Updated 08/27/18 @ 13:48 by Annelise Brasher) Smoking/Tobacco Use Status: Current every day Tobacco Type: cigarettes Quit status: considering quitting Alcohol Intake: never Drug use: Occasionally Substance use type: marijuana Household members: family Housing: house current occupation: off work right now until july Current gender identity: male What is your relationship status?: Panel score (0-1 are the most socially isolated patients): 0 What type of physical activity do you participate in: none Do you feel safe in your relationship?: Yes Exam Const General: no acute distress Orientation: alert HENMT Head: normal to inspection Ears: external ears normal General nose exam: external nose normal Mouth: moist mucous membranes Eyes General: appearance normal, both eyes and all related structures Neck Neck: normal visual inspection Resp Effort & Inspection: normal respiratory effort and able to speak in complete sentences Cardio Rate: regular rate Skin General skin exam: no rashes or lesions noted Neuro General: alert and oriented x3 Extrem General: normal to inspection Psych Mental Status: mental status grossly normal
[2018-11-11] MEDS: methylPREDNISolone SUCC 125 MG VIAL IVP (14:28)
[2018-11-11 14:31] LABS: Abs Immature Grans 0.02 k/cumm (0.0-0.09); Absolute Basophil Count 0.04 k/cumm (0.0-0.2); Absolute Eosinophil Count 0.21 k/cumm (0.0-0.7); Absolute Lymphocyte Count 2.69 k/cumm (1.2-3.4); Absolute Monocyte Count 0.82 k/cumm (0.11-0.7); Absolute Neutrophil Count 7.24 k/cumm (1.2-6.7); Basophils % 0.4; Eosinophils % 1.9; HCT 48.3 % (40.0-50.0); Immature Grans % 0.2; Lymphocytes % 24.4; Mean Corp. HGB Concentration 35.2 g/dL (32.0-36.0); Mean Corpuscular Hemoglobin 32.3 pg (27.0-33.0); Mean Corpuscular Volume 91.8 fL (80-95); Mean Platelet Volume 10.1 fL (8.0-11.0); Monocytes % 7.4; Neutrophils % 65.7; Platelet Count 186 x1000/uL (130-400); RBC 5.26 m/cumm (4.50-6.00); RBC Distribution Width 13.1 % (11.8-14.1); White Blood Cell Count 11.02 k/cumm (4.4-10.8)
[2018-11-11 14:47] LABS: PTT Activated 27.2 sec (21.0-31.4); Prothrombin Time 10.4 sec (9.3-11.0)
[2018-11-11 14:54] LABS: ALT 69 U/L (12-78); AST 30 U/L (15-37); Albumin 3.8 g/dL (3.4-5.0); Alkaline Phosphatase 85 U/L (46-116); Anion Gap 8.9 mmol/L (3-11); BUN 17 mg/dL (7-18); Bilirubin, Total 0.4 mg/dL (0.2-1.0); CO2 28.1 mmol/L (21.0-32.0); CREATININE 1.13 mg/dL (0.70-1.30); Calcium 9.2 mg/dL (8.5-10.1); Chloride 100 mmol/L (98-107); Glucose 226 mg/dL (70-100); Magnesium 1.8 mg/dL (1.8-2.4); NT-proBNP 12 pg/mL; Potassium 4.2 mmol/L (3.5-5.1); Sodium 137 mmol/L (136-145); Total Protein 7.2 g/dL (6.4-8.2)
[2018-11-11 15:04] LABS: Troponin I < 0.05 ng/mL (0.00-0.06)
[2018-11-11] MEDS: Albuterol/Ipratropium 3 ML UPD VIAL UPD (15:19)
--- NOTE | 2018-11-11 15:50 | DI.RAD_ITS ---
SYMPTOM/DIAGNOSIS: CHEST PAIN, COUGH CHEST X-RAY: Frontal and lateral views. Comparison 05/23/18 Heart size and pulmonary vasculature are within normal limits. No focal consolidating infiltrates or effusions are seen. Degenerative changes are seen in the spine. IMPRESSION: No definite acute pulmonary process.
--- NOTE | 2018-11-11 16:30 | DI.VRAD_ITS ---
EXAM: XR Chest, 2 Views EXAM DATE/TIME: 11/11/2018 3:44 PM CLINICAL HISTORY: 53 years old, male; Other: Chest pain, cough TECHNIQUE: Imaging protocol: XR of the chest, 2 views. COMPARISON: CR XR CHEST 2V PA LATERAL 05/23/2018 7:38 PM FINDINGS: Lungs: Unremarkable. No consolidation. Pleural space: Unremarkable. No pleural effusion. No pneumothorax. Heart/Mediastinum: Unremarkable. No cardiomegaly. Bones/joints: Unremarkable. IMPRESSION: No acute findings. Dictated and Authenticated by: Yann Velasco MD. Ordering:JUAN JOSÉ Butt MD
[2018-11-11 17:56] LABS: Troponin I < 0.05 ng/mL (0.00-0.06)
== END 2018-11-11 18:22 | disposition home or self-care (01) ==
PROVIDERS: Emergency Provider Emergency Medicine; PCP Nurse Practitioner Family
DX: J44.9 Chronic obstructive pulmonary disease, unspecified (principal); R07.9 Chest pain, unspecified; E11.9 Type 2 diabetes mellitus without complications; I10 Essential (primary) hypertension; F17.210 Nicotine dependence, cigarettes, uncomplicated; Z99.81 Dependence on supplemental oxygen
CPT/HCPCS: 36415; 80053; 93005; 94640; 96374; 99285; 71046; 83735; 83880; 84484; 85025; 85610; 85730; 93010; J2930; J7620

== ENCOUNTER 2018-11-29 08:55 | Outpatient (CLI) | payer MEDICAID, SELFPAY ==
[2018-11-29 09:06] VITALS: BP 136/72; PULSE 97; RESP 22; TEMP 37.5; O2SAT 96
[2018-11-29] MEDS: Omnipaque 240 MG/ML 50 ML BTL IJ (09:59)
[2018-11-29] MEDS: methylPREDNISolone ACETATE 80 MG/ML VIAL IM (10:00)
--- NOTE | 2018-11-29 10:00 | DI.RAD_ITS ---
SYMPTOM/DIAGNOSIS: LUMBAR RADICULOPATHY C-ARM FLUOROSCOPY: 11/29 Fluoroscopy Time: 16.2 sec., 10.15 mGy. C-arm fluoroscopy was utilized by Dr. Barba during reported lumbar epidural steroid injection. Hard copies show needle placement in the midline of what appears to be the L5-S1 level.
--- NOTE | 2018-11-29 10:01 | PDOC.PAIN ---
Pain Clinic Procedure Note Current Active Problems Problem Status Onset Lumbosacral radiculopathy Lumbar Epidural Steroid Injection Procedure Note COMMENTS:He did great with his last LESI on 09/11/18 ABHI ARIAS JR has been referred to the [facility] for lumbar epidural steroid injection. The patient was greeted by the nurse who verified patients name and . Patient was then taken to the fluoroscopy suite. The patient was interviewed and the medial record reviewed. There were no medical, pharmacologic, radiographic, or other structural contraindications to attempting fluoroscopically guided lumbar epidural steroid injection. Risks and expected side effects as well as potential benefits of the procedure were reviewed and voiced concerns expressed. The patient consent form was signed and witnessed. Standard patient time-out procedure was performed. The patient was placed in the prone position on the fluoroscopy table and automated blood pressure cuff and pulse oximeter applied. The skin entry point for entering/approaching the epidural space by at L5-S1 and marked. Following thorough chlorhexadine preparation of the skin and draping and 1% lidocaine infiltration of the skin entry point and subcutaneous tissues, a 18 gauge Touhy needle was placed under fluoroscopic guidance and with loss of resistance technique into the epidural space. Needle tip placement and depth were aided and confirmed by fluoroscopy. There was no paresthesia or return of blood or CSF through the needle. 1 cc's of Omnipaque 240 was injected with clear epidural spread confirmed with fluoroscopy. 80mg depomedrol was injected. There was not any unusual discomfort expressed by ABHI ARIAS JR. Patient's vital signs were stable throughout the procedure and were as recorded in nursing records. Follow up plans and appointments were discussed with patient. Post procedure instruction was given as documented in nursing records and having met discharge criteria and was discharged from the [facility] Management Center. COMMENTS: If this procedure is helpful, it can be completed up to 3 times per 12 months.
[2018-11-29 10:05] VITALS: BP 137/81; PULSE 94; RESP 22; O2SAT 95
== END 2018-11-29 09:15 ==
PROVIDERS: PCP Nurse Practitioner Family; Visit Provider Preventive Medicine Occupational Medicine
DX: M54.17 Radiculopathy, lumbosacral region (principal)
CPT/HCPCS: 62323; 72100; J1040; Q9967

== ENCOUNTER 2019-01-09 17:42 | Emergency (ER) | payer MEDICAID, SELFPAY ==
[2019-01-09] VITALS (52 sets, daily range): BP systolic 113–173; BP diastolic 60–111; PULSE 84–115; RESP 13–29; TEMP 37; O2SAT 91–97
--- NOTE | 2019-01-09 18:08 | W.ED.GENAD ---
Discharge Plan Disposition Patient Disposition: HOME Condition: Good Discharge Details Chief Complaint: Chest Pain Clinical Impression: Acute drug withdrawal syndrome, Leukocytosis, unspecified Primary Care Provider: Rodriguez Sanford ED Provider: Pattie Jorge Home Meds and New Rx's Prescriptions: New gabapentin 800 mg tablet 800 mg PO QID Qty: 16 RF: 0 azithromycin 250 mg tablet 250 mg PO DAILY 4 Days Qty: 4 RF: 0 Continued aspirin [Adult Aspirin Regimen] 81 mg tablet,delayed release (DR/EC) 81 mg PO DAILY RF: 0 Advair HFA 230-21 mcg/actuation HFA aerosol inhaler 2 puff IH BID RF: 0 gabapentin 800 mg tablet 800 mg PO QID RF: 0 glipizide 10 MG tablet 20 mg PO DAILY RF: 0 atenolol 25 MG tablet 25 mg PO DAILY RF: 0 omeprazole 20 MG capsule,delayed release(DR/EC) 20 mg PO DAILY RF: 0 Novolog PenFill U-100 Insulin 100 UNIT/1 ML cartridge 20 unit SQ QMEALS RF: 0 acarbose [Precose] 50 mg tablet 50 mg PO DIRECTED RF: 0 Spiriva with HandiHaler 1 PUFF capsule, w/inhalation device 1 puff Inhalation DAILY Qty: 1 RF: 0 albuterol sulfate [ProAir HFA] 90 mcg/actuation HFA aerosol inhaler 2 puff Inhalation PRN PRNRF: 0 Latuda 80 MG tablet 80 mg PO DAILY RF: 0 ipratropium-albuterol 3 ML solution for nebulization 3 ml UPD Q6H PRN PRNQty: 30 RF: 0 atorvastatin [Lipitor] 80 MG tablet 1 tab PO HS RF: 0 lisinopril 20 MG tablet 20 mg PO DAILY RF: 0 nicotine [Nicoderm CQ] 1 EACH patch 24 hour 21 mg Transdermal DAILY RF: 0 epinephrine [EpiPen 2-Cristian] 0.3 MG/0.3 ML auto-injector 1 ea UD PRN PRNRF: 0 prazosin 2 MG capsule 4 mg PO HS RF: 0 Lantus Solostar U-100 Insulin 100 unit/mL (3 mL) insulin pen 100 unit Sub-Q QAM RF: 0 Discharge Instructions Instructions: Leukocytosis (ED) Additional Instructions: Please use your medications only as prescribed. Do not take liberties with your medication dosages. Please try to organize your medications in a fashion in which you can easily take them and identify which medications have been taken for example a medication box as discussed. Please use your inhaler only as prescribed. Please follow-up with your primary care doctor for elevation of your white blood cell count. This may be a result of overuse of your inhaler however this will require repeat lab evaluation with your primary care doctor as discussed. Return for fevers, ill feeling, alarming symptoms or worsening if needed. Follow-up with your primary care doctor promptly for reevaluation Discharge Data Discharge Date/Time-TO BE ENTERED AT DEPARTURE: 01/09/19 23:20 Medical Decision Making This is a 53-year-old patient who has multiple medical problems including diabetes COPD, obesity, hypertension and a history of drug abuse who presents after taking his gabapentin to frequently and running out of it early. Patient has ran out of gabapentin last night presents to the ER today concern for withdrawal symptoms. Patient presents diaphoretic mildly tachycardic complaining of chest pain and mild nausea. Patient was given an initial dose of gabapentin when he arrives, 800 mg which is typical dose. I felt it reasonable to pursue a cardiac evaluation to be sure there is no evidence of ischemic cause of his chest pain and diaphoresis. IV fluids ordered IV placed. EKG reviewed with Dr. Hollingsworth reveals sinus tachycardia with no obvious ischemic pattern. EKG initial rate is 115 and regular. After reevaluation patient was feeling improved 45 minutes after his initial dose of gabapentin. Patient reports chest pain is improved, his diaphoresis is improved. Patient's labs reviewed. Initial troponin is negative. Patient noted to have leukocytosis on his labs but no clear signs of infection however has been complaining of a cough for the last 3 days. Given the leukocytosis noted 20.21 further exploration for infection was pursued. Patient is no evidence of skin infections, chest x-ray negative for obvious pulmonary infection. Patient has no abdominal pain on exam. Patient's urine does not reveal obvious infection. Culture sent. I will provide antibiotic at patient's request for concern for possible pulmonary infection although I am not convinced that an infection is present. After exploring other possible causes of patient's leukocytosis and speaking with the patient further he has been also taking his newly prescribed steroid inhaler more frequently than prescribed he reports approximately 4 times a day. Patient was prescribed this inhaler 1 week ago. This does remain in the differential as a possible source of his leukocytosis. Patient second troponin returned negative. Patient continues to feel improved. At this point did offer the patient admission. He does not desire admission to the hospital at this time he would prefer to follow-up with his primary care doctor as an outpatient. He does not suspect a cardiac cause of his symptoms and serial troponins have remained negative. Patient has remained mildly tachycardic through the course of his visit however heart rate has improved to 95 at this time. Patient again requests discharge home at this time which I do not feel is unreasonable. I will give 4 days of his gabapentin with requirement of prompt follow-up with his primary care doctor. Patient reports his understanding and agrees with plan of care. Patient counseled at length regarding appropriate use of his daily medications, encouraged to use a pill bottle to organize his medications and to prevent him overusing his medications. Also discussed use of his inhalers and appropriate use of inhalers. Discussed the risk of over taking these medications more than necessary. Patient reports his understanding and contracts to taking his medications as prescribed. Will discharge patient home at this time. HPI General Date/Time Provider Initiated Documentation: 01/09/19 17:50. HPI Narrative: Patient presents because he is out of his gabapentin. Patient ran out this morning. He did call his primary care doctor but was unable to get a response. Patient reports he had a pill bottle of 120 tablets prescribed on 12/14. Patient reports he has been taking the medication more than prescribed. He is prescribed 4 times daily dosing and reports he would take it up to 5 times a day as well as occasionally at night. Therefore patient ran out of his medication early. Patient reports since not taking his medication last night he is now having onset of heart racing, mild nausea, sweating and mild anterior chest pain. Patient does report cough for the last 3 days with production. He does report a history of baseline COPD. Patient is concerned with the cough for the last 3 days. Patient denies abdominal pain, nausea, vomiting, diarrhea. Urinating without difficulty. Denies any back pain. No other concerns or complaints at this time. Related Data Home Medications Medication Instructions Recorded Confirmed Novolog PenFill U-100 Insulin 20 unit SQ QMEALS 08/09/12 01/09/19 atenolol 25 mg PO DAILY 08/09/12 01/09/19 glipizide 20 mg PO DAILY 08/09/12 01/09/19 omeprazole 20 mg PO DAILY 08/09/12 01/09/19 Spiriva with HandiHaler 1 puff INHALATION DAILY #1 laura 07/08/13 01/09/19 atorvastatin [Lipitor] 1 tab PO HS 09/04/17 01/09/19 epinephrine [EpiPen 2-Cristian] 1 ea UD PRN PRN 09/04/17 01/09/19 lisinopril 20 mg PO DAILY 09/04/17 01/09/19 nicotine [Nicoderm CQ] 21 mg TRANSDERMAL DAILY 09/04/17 01/09/19 prazosin 4 mg PO HS 09/04/17 01/09/19 Latuda 80 mg PO DAILY 09/05/17 01/09/19 ipratropium-albuterol 3 ml UPD Q6H PRN PRN #30 vial 09/08/17 01/09/19 acarbose 50 mg tablet 50 mg PO DIRECTED tab 06/13/18 01/09/19 albuterol sulfate 90 mcg/actuation 2 puff INHALATION PRN PRN gm 06/13/18 01/09/19 aerosol inhaler aspirin 81 mg tablet,delayed 81 mg PO DAILY 06/13/18 01/09/19 release fluticasone propionate-salmeterol 2 puff IH BID 06/13/18 01/09/19 230 mcg-21 mcg/actuation HFA inhaler gabapentin 800 mg tablet 800 mg PO QID tab 08/27/18 01/09/19 insulin glargine 100 unit/mL (3 100 unit SUB-Q QAM ml 08/27/18 01/09/19 mL) subcutaneous pen azithromycin 250 mg PO DAILY 4 Days #4 tab 01/09/19 gabapentin 800 mg PO QID #16 tab 01/09/19 Previous Rx's Medication Instructions Recorded Spiriva with HandiHaler 1 puff INHALATION DAILY #1 laura 07/08/13 ipratropium-albuterol 3 ml UPD Q6H PRN PRN #30 vial 09/08/17 azithromycin 250 mg PO DAILY 4 Days #4 tab 01/09/19 gabapentin 800 mg PO QID #16 tab 01/09/19 Allergies Allergy/AdvReac Type Severity Reaction Status Date / Time Fish Containing Products Allergy Severe Anaphylaxsi Verified 11/29/18 09:03 s tree nut [Tree Nut] Allergy Severe Anaphylaxsi Verified 11/29/18 09:03 s metformin Allergy Unknown Per office Verified 11/29/18 09:03 H&P venlafaxine HCl AdvReac Severe seizures Verified 11/29/18 09:03 [From Effexor] diclofenac [Diclofenac] AdvReac Intermediate Headache Verified 11/29/18 09:03 misoprostol AdvReac Intermediate Headache Verified 11/29/18 09:03 General Stated Complaint: Chest Pain LINDY: 2 Review of Systems Review of Systems ROS Unobtainable: All systems reviewed & are unremarkable except as noted in HPI and below Constitutional Constitutional: Reports chills and Denies fever(s) Cardiovascular Cardiovascular: Reports chest pain, Denies syncope, Reports rapid heart rate and Denies lightheadedness Respiratory Respiratory: Reports cough, Denies hemoptysis and Reports pain with cough Gastrointestinal Gastrointestinal: Denies abdominal pain, Denies diarrhea, Denies nausea and Denies vomiting Genitourinary Genitourinary: Denies urinary frequency and Denies urinary urgency Neurologic Neurologic: Denies syncope [facility] Medical History Abnormal EKG (Acute) Bipolar 2 disorder (Chronic) Diabetes DM2 (diabetes mellitus, type 2) (Chronic) Drug abuse, opioid type (Acute) Glaucoma, left eye (Chronic) Hypertension Myopia, bilateral (Acute) Obesity Onychomycosis (Acute) Presbyopia (Acute) Radiculopathy of lumbar region (Acute) Sleep apnea (Chronic) Sleep disturbance (Acute) Stage 2 moderate COPD by GOLD classification (Chronic) Surgical History Colonoscopy - MAC not completed due to incomplete prep Social History Smoking/Tobacco Use Status: Current every day Tobacco Type: cigarettes Quit status: considering quitting Alcohol Intake: never Drug use: Occasionally Substance use type: marijuana Details: pt states that he smokes marijuana a few times a week Household members: family Housing: house current occupation: off work right now until july Current gender identity: male What is your relationship status?: Panel score (0-1 are the most socially isolated patients): 0 What type of physical activity do you participate in: none Do you feel safe in your relationship?: Yes Exam Narrative Exam Narrative: CONST: Mildly diaphoretic, in no acute distress. Well hydrated. Alert and alert. HENMT: Head nomocephalic, normal to inspection. Atraumatic. Hearing grossly normal. EYES: General normal appearance. Alignment normal. Eyelids normal. Conjunctiva normal. NECK: Normal visual inspection. FROM. Trachea midline. No Midline tenderness. CHEST: Normal insepection of the chest. RESP: Normal respiratory effort. Speaking full sentences. No cough. No audible wheezing. No retractions. Scattered wheezes on breath sounds. Breath sounds present in all 4 quadrants. No obvious rales CARDIO: No JVD. No obvious murmur rub. MUSCULOSKELETAL: Normal Gait. FROM of all extremities. No distal edema in the lower extremities. SKIN: Normal. Dry. No rashes. No evidence of cellulitis NEURO: Alert and awake. Speech clear. PSYCH: Normal affect. Cooperative. Course Vital Signs Vital signs: Vital Signs Pulse Oximetry 91 L 01/09/19 17:36 Temperature 37 C 01/09/19 17:46 Temperature Source Skin 01/09/19 17:46 Pulse 113 H 01/09/19 17:46 Pulse 109 H 01/09/19 17:40 Respiratory Rate 17 01/09/19 17:51 Respiratory Effort Non-Labored 01/09/19 17:51 Respiratory Depth Normal 01/09/19 17:51 Respiratory Pattern Normal 01/09/19 17:51 Blood Pressure 173/83 H 01/09/19 17:46 Blood Pressure Mean 105 01/09/19 17:37 Pulse Oximetry 96 01/09/19 17:46 Oxygen Delivery Method Room Air 01/09/19 17:46 Oxygen Flow Rate 0 01/09/19 17:46
[2019-01-09 18:24] LABS: Abs Immature Grans 0.05 k/cumm (0.0-0.09); Absolute Basophil Count 0.02 k/cumm (0.0-0.2); Absolute Eosinophil Count 0.04 k/cumm (0.0-0.7); Basophils % 0.1; Eosinophils % 0.2; HCT 45.7 % (40.0-50.0); HGB 16.3 g/dL (13.5-17.5); Immature Grans % 0.2; Lymphocytes % 8.8; Mean Corp. HGB Concentration 35.7 g/dL (32.0-36.0); Mean Corpuscular Hemoglobin 32.5 pg (27.0-33.0); Mean Corpuscular Volume 91.2 fL (80-95); Mean Platelet Volume 10.2 fL (8.0-11.0); Monocytes % 5.8; Neutrophils % 84.9; Platelet Count 240 x1000/uL (130-400); RBC 5.01 m/cumm (4.50-6.00); White Blood Cell Count 20.21 k/cumm (4.4-10.8)
[2019-01-09 18:25] LABS: Absolute Lymphocyte Count 1.78 k/cumm (1.2-3.4); Absolute Monocyte Count 1.17 k/cumm (0.11-0.7); Absolute Neutrophil Count 17.16 k/cumm (1.2-6.7)
[2019-01-09] MEDS: Normal Saline 1,000 ML 1000 ML IV ×2 (18:27→21:59)
[2019-01-09 18:37] LABS: ALT 34 U/L (16-63); AST 15 U/L (15-37); Albumin 4.4 g/dL (3.4-5.0); Alkaline Phosphatase 117 U/L (46-116); BUN 9 mg/dL (7-18); Bilirubin, Total 0.9 mg/dL (0.2-1.0); CREATININE 1.18 mg/dL (0.70-1.30); Calcium 9.3 mg/dL (8.5-10.1); Chloride 94 mmol/L (98-107); Glucose 302 mg/dL (70-100); Potassium 3.9 mmol/L (3.5-5.1); Sodium 131 mmol/L (136-145); Total Protein 8.1 g/dL (6.4-8.2)
[2019-01-09 18:42] LABS: Magnesium 1.7 mg/dL (1.8-2.4)
[2019-01-09] MEDS: Gabapentin 300 MG CAP 800 MG PO (18:42)
--- NOTE | 2019-01-09 18:44 | DI.RAD_ITS ---
EXAM: XR CHEST 2V PA LATERAL INDICATION: chest pain. COMPARISON: XR CHEST 2V PA LATERAL from 11/11/2018 TECHNIQUE: 2D digital imaging was performed. FINDINGS: Lungs are well expanded and free of infiltrate. There is no evidence of a pleural effusion. The hear t is within normal limits in size. IMPRESSION: No evidence of acute cardiopulmonary disease.
[2019-01-09 18:49] LABS: Troponin I < 0.05 ng/mL (0.00-0.06)
--- NOTE | 2019-01-09 19:13 | DI.VRAD_ITS ---
PROCEDURE INFORMATION: Exam: XR Chest, 2 Views Exam date and time: 01/09/2019 6:39 PM Clinical history: 53 years old, male; Chest pain; Type not specified TECHNIQUE: Imaging protocol: XR of the chest Views: 2 views. COMPARISON: CR XR CHEST 2V PA LATERAL 11/11/2018 3:40 PM FINDINGS: Lungs: Unremarkable. No consolidation. Pleural space: Unremarkable. No pleural effusion. No pneumothorax. Heart/Mediastinum: Unremarkable. No cardiomegaly. Bones/joints: The spine demonstrates mild degenerative changes at multiple levels. IMPRESSION: No acute findings. Dictated and Authenticated by: Sergio Rascon MD. Ordering:EVARISTO Blankenship MD
[2019-01-09 21:21] LABS: Lactate 1.6 mmol/L (0.6-1.4)
[2019-01-09 22:00] LABS: Bilirubin Negative (Negative); Blood Negative (Negative); Clarity Clear (Clear); Glucose 500 mg/dL (Negative); Ketones 15 mg/dL (Negative); Leukocyte Esterase Negative (Negative); Nitrite Negative (Negative); Urobilinogen 0.2 EU/dL (Up TO 0.2)
[2019-01-09 22:06] LABS: Troponin I < 0.05 ng/mL (0.00-0.06)
[2019-01-09] MEDS: Azithromycin 250 MG TAB 500 MG PO (23:09)
== END 2019-01-09 23:20 | disposition home or self-care (01) ==
PROVIDERS: Emergency Provider Physician Assistant; PCP Nurse Practitioner Family
DX: T50.906A Underdosing of unspecified drugs, medicaments and biological substances, initial encounter (principal); D72.9 Disorder of white blood cells, unspecified; R00.0 Tachycardia, unspecified; R07.9 Chest pain, unspecified; I10 Essential (primary) hypertension; E11.9 Type 2 diabetes mellitus without complications; J44.9 Chronic obstructive pulmonary disease, unspecified
CPT/HCPCS: 36415; 80053; 87449; 93005; 96360; 96361; 99285; 71046; 81003; 83605; 83735; 84484; 85025; 87086; 93010

== ENCOUNTER 2019-01-16 10:17 | Emergency (ER) | payer MEDICAID, SELFPAY ==
--- NOTE | 2019-01-16 10:19 | ED.GENADUL_ITS ---
Discharge Plan Disposition Patient Disposition: HOME Condition: Good Discharge Details Chief Complaint: Nk/Back Pain Clinical Impression: Bronchitis, Chronic back pain, Radiculopathy Primary Care Provider: Rodriguez Sanford ED Provider: Cleve Mcclendon Home Meds and New Rx's Prescriptions: No Action aspirin [Adult Aspirin Regimen] 81 mg tablet,delayed release (DR/EC) 81 mg PO DAILY RF: 0 Advair HFA 230-21 mcg/actuation HFA aerosol inhaler 2 puff IH BID RF: 0 gabapentin 800 mg tablet 800 mg PO QID RF: 0 glipizide 10 MG tablet 20 mg PO DAILY RF: 0 atenolol 25 MG tablet 25 mg PO DAILY RF: 0 omeprazole 20 MG capsule,delayed release(DR/EC) 20 mg PO DAILY RF: 0 Novolog PenFill U-100 Insulin 100 UNIT/1 ML cartridge 20 unit SQ QMEALS RF: 0 acarbose [Precose] 50 mg tablet 50 mg PO DIRECTED RF: 0 Spiriva with HandiHaler 1 PUFF capsule, w/inhalation device 1 puff Inhalation DAILY Qty: 1 RF: 0 albuterol sulfate [ProAir HFA] 90 mcg/actuation HFA aerosol inhaler 2 puff Inhalation PRN PRNRF: 0 Latuda 80 MG tablet 80 mg PO DAILY RF: 0 ipratropium-albuterol 3 ML solution for nebulization 3 ml UPD Q6H PRN PRNQty: 30 RF: 0 atorvastatin [Lipitor] 80 MG tablet 1 tab PO HS RF: 0 lisinopril 20 MG tablet 20 mg PO DAILY RF: 0 nicotine [Nicoderm CQ] 1 EACH patch 24 hour 21 mg Transdermal DAILY RF: 0 epinephrine [EpiPen 2-Cristian] 0.3 MG/0.3 ML auto-injector 1 ea UD PRN PRNRF: 0 prazosin 2 MG capsule 4 mg PO HS RF: 0 Lantus Solostar U-100 Insulin 100 unit/mL (3 mL) insulin pen 100 unit Sub-Q QAM RF: 0 gabapentin 800 mg tablet 800 mg PO QID Qty: 16 RF: 0 Discharge Instructions Instructions: Acute Bronchitis (ED), Chronic Back Pain (ED) Additional Instructions: At this time the CT scan shows no evidence of abscess, or other significant abnormality. There is no evidence of compression of your central spinal cord, however it is very important a follow-up closely with your primary care provider tomorrow. You will likely need to get an MRI in the future on a nonemergent basis. I also suspect that you have bronchitis causing her cough and mild chills. Please continue to take your albuterol every 6 hours. Please take Tylenol and Motrin as needed for pain or chills. You can take 1000 mg of Tylenol every 6 hours and 800 mg of ibuprofen every 6 hours. Please leave the Lidoderm patch on for the next 10 hours. If you notice any worsening of your symptoms, or any new symptoms such as vomiting, diarrhea, fever, chills, shortness of breath, chest pain, numbness, tingling or numbness in your groin, lack of control of her bowels and bladder, weakness, or fainting , please return immediately to the emergency department for reevaluation. Please follow up with your primary care provider as soon as possible for reassessment and reevaluation. As always, it was a pleasure participating in your medical care today. Referrals: Rodriguez Sanford NP [Primary Care Provider] - Medical Decision Making This is a pleasant 54-year-old male with a past medical history of COPD, with a baseline of 2 L of home oxygen, diabetes, hypertension, high cholesterol, chronic back pain and chronic left-sided leg numbness who presents today for fever and chills which were subjective, as well as new right-sided numbness on his right leg. He also has a mild headache and cough. He received a back injection on December 31. He was seen here on January 09 for withdrawal symptoms of gabapentin. At that time he had leukocytosis and a white count, however he refused admission and further work-up. His work-up was otherwise relatively benign. He denies any significant changes in his medication since then. He has multiple vague symptoms. In regards to his back pain he states that it is worse than normal. Unfortunately we do not have any MRI capabilities at this time. He does state that the numbness in his right leg is certainly atypical. He denies bowel or bladder incontinence, exam demonstrates no saddle anesthesia or evidence of cord compression. No other concerning neurologic deficits. Regards to his headache it is notably mild, no nuchal rigidity neck stiffness or neck pain, negative Kernig's and Brudzinski's and inconsistent with clinical meningitis. His cough he states is been slightly improving, relatively nonproductive, lung sounds are clear. He denies any dysuria or hematuria. Differential is broad, but includes UTI, pneumonia, or po tential injection complication as to the cause of his fever and chills. We will check for potential infectious etiologies, control his pain, and reassess. 1:43 PM Patient's laboratory work-up has returned, white count is 12 which is 8 points lower than when he was here on his last visit, left shift is notably improved, no bandemia. ESR is minimally elevated at 33, CRP is elevated at 3.41. Uri nalysis is negative for infection, chest x-ray benign. Electrolytes stable. Patient remains afebrile here. Heart rate normal vital signs normal. No clinical evidence of sepsis, severe infection, no clinical evidence of cauda equina syndrome or central cord compression. He is feeling slightly better at the Lidoderm patch. With his cough and the lack of evidence of pneumonia on chest x-ray feel his signs and symptoms are clinically consistent with mild viral bronchitis. No evidence of spinal epidural abscess per radiology. No significant urinary retention. And with laboratory work-up notably improved from his last visit I doubt serious or life-threatening bacterial infection at this point clinically. I had a long discussion with the patient about his peripheral neuropathy on his lateral leg, as well as importance of close follow- up with his PCP for which he already has an appointment established for tomorrow. Also discussed the need for potential future MRI, and the importance of prompt return for any concerning red flags. I have extensively reviewed the treatment plan and discharge instructions with the patient. I have addressed all patient concerns at this time. The patient was made aware of what symptoms to monitor for that would warrant a return to the emergency department. Discussed the plan with the patient, they demonstrate verbal understanding and agreement with our assessment and plan at this time. FINDINGS: Bones: The last intervertebral disc space is designated the L5/S1 level for the numbering purpose of this examination. The vertebral body heights are well maintained. Alignment is satisfactory. No fracture is seen. There are mild degenerative changes at multiple levels in the lumbar spine. T12-L1: No disc herniations or bulges are present. L1-2: No disc herniations or bulges are present. L2-3: No disc herniations or bulges are present. L3-4: No disc herniations or bulges are present. L4-5: No disc herniations or bulges are present. L5-S1: No disc herniations or bulges are present. Soft Tissues: The visualized SI joints and sacrum are will maintained. The paraspinal soft tissues are unremarkable. No focal fluid collections are seen to suggest an abscess. IMPRESSION: No acute abnormality. No evidence of significant central spinal canal or neural foraminal stenosis. No evidence of an epidural abscess. FINDINGS: LUNGS: Clear. No pleural abnormality seen. HEART: Normal. MEDIASTINUM: Normal. OTHER FINDINGS:Normal. IMPRESSION: No acute pulmonary findings. Ordered By: Cleve Mcclendon DO CC: [facility] General Date/Time Provider Initiated Documentation: 01/16/19 10:17 . [facility] Narrative: This is a pleasant 54-year-old male with a past medical history of COPD, with a baseline of 2 L of home oxygen, diabetes, hypertension, high cholesterol, chronic back pain for which she received recent spinal injection on December 31, who presents today for evaluation of subjective fever, chills, and numbness for his right leg. He states that he has a history of chronic back pain and left leg numbness, after the injection his left leg numbness improved however he now has significant right leg numbness. His back pain has worsened compared to normal. He denies any saddle anesthesia, bowel or bladder incontinence. He denies any weakness of his legs. When he was here on his last visit he did have mild tachycardia and white count, he was here for gabapentin withdrawal symptoms, he left after refusing admission. He has been taking gabapentin as prescribed. The patient also does admit to a mild headache, he describes it as a 6 out of 10, not the worst headache of his life, not thunderclap in onset, and not severe. He denies any neck pain or stiffness. He has not taken any NSAIDs this morning. No complaints at this time. Related Data Home Medications Medication Instructions Recorded Confirmed Novolog PenFill U-100 Insulin 20 unit SQ QMEALS 08/09/12 01/09/19 atenolol 25 mg PO DAILY 08/09/12 01/09/19 glipizide 20 mg PO DAILY 08/09/12 01/09/19 omeprazole 20 mg PO DAILY 08/09/12 01/09/19 Spiriva with HandiHaler 1 puff INHALATION DAILY #1 laura 07/08/13 01/09/19 atorvastatin [Lipitor] 1 tab PO HS 09/04/17 01/09/19 epinephrine [EpiPen 2-Cristian] 1 ea UD PRN PRN 09/04/17 01/09/19 lisinopril 20 mg PO DAILY 09/04/17 01/09/19 nicotine [Nicoderm CQ] 21 mg TRANSDERMAL DAILY 09/04/17 01/09/19 prazosin 4 mg PO HS 09/04/17 01/09/19 Latuda 80 mg PO DAILY 09/05/17 01/09/19 ipratropium-albuterol 3 ml UPD Q6H PRN PRN #30 vial 09/08/17 01/09/19 acarbose 50 mg tablet 50 mg PO DIRECTED tab 06/13/18 01/09/19 albuterol sulfate 90 mcg/actuation 2 puff INHALATION PRN PRN gm 06/13/18 01/09/19 aerosol inhaler aspirin 81 mg tablet,delayed 81 mg PO DAILY 06/13/18 01/09/19 release fluticasone propionate-salmeterol 2 puff IH BID 06/13/18 01/09/19 230 mcg-21 mcg/actuation HFA inhaler gabapentin 800 mg tablet 800 mg PO QID tab 08/27/18 01/09/19 insulin glargine 100 unit/mL (3 100 unit SUB-Q QAM ml 08/27/18 01/09/19 mL) subcutaneous pen gabapentin 800 mg PO QID #16 tab 01/09/19 Previous Rx's Medication Instructions Recorded Spiriva with HandiHaler 1 puff INHALATION DAILY #1 laura 07/08/13 ipratropium-albuterol 3 ml UPD Q6H PRN PRN #30 vial 09/08/17 gabapentin 800 mg PO QID #16 tab 01/09/19 Allergies Allergy/AdvReac Type Severity Reaction Status Date / Time Fish Containing Products Allergy Severe Anaphylaxsi Verified 11/29/18 09:03 s tree nut [Tree Nut] Allergy Severe Anaphylaxsi Verified 11/29/18 09:03 s metformin Allergy Unknown Per office Verified 11/29/18 09:03 H&P venlafaxine HCl AdvReac Severe seizures Verified 11/29/18 09:03 [From Effexor] diclofenac [Diclofenac] AdvReac Intermediate Headache Verified 11/29/18 09:03 misoprostol AdvReac Intermediate Headache Verified 11/29/18 09:03 General LINDY: 2 Review of Systems Review of Systems ROS Unobtainable: All systems reviewed & are unremarkable except as noted in HPI and below PFSH Social History Smoking/Tobacco Use Status: Current every day Tobacco Type: cigarettes Quit status: considering quitting Alcohol Intake: never Drug use: Occasionally Substance use type: marijuana Details: pt states that he smokes marijuana a few times a week Household members: family Housing: house current occupation: off work right now until july Current gender identity: male What is your relationship status?: Panel score (0-1 are the most socially isolated patients): 0 What type of physical activity do you participate in: none Do you feel safe at home: Yes Do you feel safe in your relationship?: Yes Exam Narrative Exam Narrative: 1.Const: Well-nourished, Well-developed, appearing stated age 2.Eyes: PERRL, no conjunctival injection, and symmetrical lids. 3.ENT: Atraumatic external nose and ears. Moist MM. Neck: Symmetric, trachea midline, No thyromegaly. Patient demonstrates good movement of cervical neck. There is no nuchal rigidity, no nuchal tenderness. Patient is able to flex the neck without any difficulty or significant pain. Negative Kernig's and Brudzinski sign. 4.CVS: +S1/S2, No murmurs or gallops. Peripheral pulses 2+ and equal in all extremities. Brisk capillary refill in all extremities. 5.RESP: Unlabored respiratory effort. Clear to auscultation bilaterally. No wheezes rales or rhonchi 6.GI: Soft, Nontender/Nondistended, No hepatosplenomegaly. No guarding or rebound. 7.MSK: Normocephalic/Atraumatic, Extremities w/o deformity or ttp No cyanosis or clubbing, Normal movement of all extremities. Minimal midline tenderness over L4 and L5, moderate to severe paraspinal tenderness. Notable paraspinal spasm. Patient has +5 out of 5 strength in the lower extremities in dorsiflexion and plantarflexion, knee flexion and extension, hip flexion and extension. There is +2 over 2 dorsalis pedis pulses bilaterally. There is normal sensation to the skin with light touch at the foot, knee, and hip on the medial aspect. Normal saddle sensation. Patient does demonstrate notably decreased sensation on the lateral aspect of his right and left lower extremity, worse on the right. Sensation is minimally present, no significant pain with pinching, or extraction of hair. This seems to be present all the way from the proximal lateral thigh down to the lateral her. Rectal exam demonstrates normal rectal tone, good perirectal sensation. Reflexes are +2 over 4 in the patellar reflex bilaterally. +5 out of 5 strength in the medial, ulnar, radial nerve distribution bilaterally in the hands as well as intact light touch sensation to these dermatomes on the hands 8.Skin: Warm, Dry. No rashes or lesions. 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 Please see sensation exam under musculoskeletal 10.Psych: (AAO) x3. Appropriate mood and affect
[2019-01-16 10:23] VITALS: BP 129/81; PULSE 78; RESP 20; TEMP 37.1; O2SAT 97
[2019-01-16] MEDS: Normal Saline 1,000 ML 1000 ML IV (10:42)
[2019-01-16] MEDS: Acetaminophen 500 MG TAB 1000 MG PO (10:51)
[2019-01-16] MEDS: Lidocaine 5% Patch 1 PATCH TP (10:52)
[2019-01-16 11:00] LABS: Lactate 1.4 mmol/L (0.6-1.4)
[2019-01-16 11:05] LABS: Abs Immature Grans 0.06 k/cumm (0.0-0.09); Absolute Eosinophil Count 0.16 k/cumm (0.0-0.7); Absolute Neutrophil Count 8.69 k/cumm (1.2-6.7); Basophils % 0.2; Eosinophils % 1.3; HCT 43.7 % (40.0-50.0); HGB 15.2 g/dL (13.5-17.5); Immature Grans % 0.5; Lymphocytes % 20.6; Mean Corp. HGB Concentration 34.8 g/dL (32.0-36.0); Mean Corpuscular Hemoglobin 31.9 pg (27.0-33.0); Mean Corpuscular Volume 91.8 fL (80-95); Mean Platelet Volume 9.4 fL (8.0-11.0); Monocytes % 6.5; Neutrophils % 70.9; Platelet Count 314 x1000/uL (130-400); RBC 4.76 m/cumm (4.50-6.00); RBC Distribution Width 12.7 % (11.8-14.1); White Blood Cell Count 12.26 k/cumm (4.4-10.8)
[2019-01-16 11:08] LABS: Absolute Basophil Count 0.02 k/cumm (0.0-0.2); Absolute Lymphocyte Count 2.53 k/cumm (1.2-3.4)
[2019-01-16 11:14] LABS: Bilirubin Negative (Negative); Blood Negative (Negative); Clarity Clear (Clear); Glucose 500 mg/dL (Negative); Ketones Negative (Negative); Leukocyte Esterase Negative (Negative); Nitrite Negative (Negative); Specific Gravity 1.015 (1.005-1.025); Urobilinogen 0.2 EU/dL (Up TO 0.2); pH 7.5 (5-8)
[2019-01-16 11:15] LABS: ALT 40 U/L (16-63); AST 18 U/L (15-37); Albumin 3.7 g/dL (3.4-5.0); Alkaline Phosphatase 107 U/L (46-116); Anion Gap 10.1 mmol/L (3-11); BUN 14 mg/dL (7-18); Bilirubin, Total 0.4 mg/dL (0.2-1.0); CO2 26.9 mmol/L (21.0-32.0); CREATININE 1.03 mg/dL (0.70-1.30); Chloride 95 mmol/L (98-107); Glucose 251 mg/dL (70-100); Potassium 4.3 mmol/L (3.5-5.1); Sodium 132 mmol/L (136-145); Total Protein 7.5 g/dL (6.4-8.2)
[2019-01-16 11:24] LABS: C-Reactive Protein 3.41 mg/dL (0.0-0.3)
[2019-01-16] MEDS: Omnipaque 350 MG/ML 100 ML BTL IJ (12:01)
[2019-01-16] MEDS: Normal Saline Flush 10 ML SYR IVP (12:02)
--- NOTE | 2019-01-16 12:10 | DI.CT_ITS ---
EXAM: CT LUMBAR SPINE W CLINICAL HISTORY: back pain, recent spinal injection, right leg numb. TECHNIQUE: Imaging Protocol: Axial computed tomography images with coronal and sagittal reformatted images were created and reviewed CONTRAST MATERIAL: Intravenous: Omnipaque 350 Contrast volume:100 mL contrast route:IV - Oral: No COMPARISON: PELVIC/LOWER ABD WITH CON(P) from 11/23/2015 FINDINGS: Bones: The last intervertebral disc space is designated the L5/S1 level for the numbering purpose of this examination. The vertebral body heights are well maintained. Alignment is satisfactory. No frac ture is seen. There are mild degenerative changes at multiple levels in the lumbar spine. T12-L1: No disc herniations or bulges are present. L1-2: No disc herniations or bulges are present. L2-3: No disc herniations or bulges are present. L3-4: No disc herniations or bulges are present. L4-5: No disc herniations or bulges are present. L5-S1: No disc herniations or bulges are present. Soft Tissues: The visualized SI joints and sacrum are will maintained. The paraspinal soft tissues a re unremarkable. No focal fluid collections are seen to suggest an abscess. IMPRESSION: No acute abnormality. No evidence of significant central spinal canal or neural foraminal stenosis. No evidence of an epidural abscess. DATA REPOSITORY: All CT scans at this facility are submitted to the National Radiology Data Registry (NRDR) Dose Index Registry (DIR) with the [employer] (A[employer]). RADIATION OPTIMIZATION: All CT scans at this facility use at least one of these dose optimization te chniques: automated exposure control; mA and/or kV adjustment per patient size (includes targeted exa ms where dose is matched to clinical indication); or iterative reconstruction.
--- NOTE | 2019-01-16 12:16 | DI.RAD_ITS ---
EXAM: XR CHEST 2V PA LATERAL CLINICAL HISTORY: cough, chills, r/o pneuomina. TECHNIQUE: 2D digital imaging was performed. COMPARISON: XR CHEST 2V PA LATERAL from 01/09/2019 FINDINGS: LUNGS: Clear. No pleural abnormality seen. HEART: Normal. MEDIASTINUM: Normal. OTHER FINDINGS:Normal. IMPRESSION: No acute pulmonary findings.
[2019-01-16 12:25] LABS: ESR 33 mm/hr (1-20)
[2019-01-16 13:44] VITALS: BP 115/65; PULSE 72; RESP 16; TEMP 36.5; O2SAT 95
== END 2019-01-16 14:14 | disposition home or self-care (01) ==
PROVIDERS: Emergency Provider Student in an Organized Health Care Education/Training Program; PCP Nurse Practitioner Family
DX: J44.0 Chronic obstructive pulmonary disease with (acute) lower respiratory infection (principal); J20.9 Acute bronchitis, unspecified; M54.5 Low back pain; M54.16 Radiculopathy, lumbar region; E11.9 Type 2 diabetes mellitus without complications; I10 Essential (primary) hypertension; Z99.81 Dependence on supplemental oxygen
CPT/HCPCS: 36415; 80053; 85652; 87449; 96360; 99284; 71046; 72132; 81003; 83605; 85025; 86140; J3490

== ENCOUNTER 2019-01-23 11:40 | Emergency (ER) | payer MEDICAID, SELFPAY ==
[2019-01-23 11:44] VITALS: BP 147/69; PULSE 87; RESP 16; TEMP 36.3; O2SAT 95
[2019-01-23 13:23] VITALS: RESP 4
[2019-01-23] MEDS: Albuterol/Ipratropium 3 ML UPD VIAL UPD (13:23)
[2019-01-23 13:28] LABS: Abs Immature Grans 0.04 k/cumm (0.0-0.09); Absolute Basophil Count 0.03 k/cumm (0.0-0.2); Absolute Lymphocyte Count 2.51 k/cumm (1.2-3.4); Basophils % 0.2; Eosinophils % 0.8; HGB 16.2 g/dL (13.5-17.5); Immature Grans % 0.3; Lymphocytes % 17.2; Mean Corp. HGB Concentration 35.2 g/dL (32.0-36.0); Mean Corpuscular Hemoglobin 32.2 pg (27.0-33.0); Mean Corpuscular Volume 91.5 fL (80-95); Mean Platelet Volume 9.6 fL (8.0-11.0); Monocytes % 4.9; Neutrophils % 76.6; Platelet Count 249 x1000/uL (130-400); RBC 5.03 m/cumm (4.50-6.00)
[2019-01-23 13:30] LABS: Absolute Eosinophil Count 0.12 k/cumm (0.0-0.7); Absolute Monocyte Count 0.72 k/cumm (0.11-0.7); Absolute Neutrophil Count 11.18 k/cumm (1.2-6.7)
[2019-01-23 13:48] LABS: ALT 39 U/L (16-63); AST 18 U/L (15-37); Alkaline Phosphatase 90 U/L (46-116); Anion Gap 10.4 mmol/L (3-11); BUN 13 mg/dL (7-18); Bilirubin, Total 0.4 mg/dL (0.2-1.0); CO2 26.6 mmol/L (21.0-32.0); CREATININE 1.07 mg/dL (0.70-1.30); Calcium 9.1 mg/dL (8.5-10.1); Chloride 100 mmol/L (98-107); Glucose 216 mg/dL (70-100); Potassium 4.4 mmol/L (3.5-5.1); Sodium 137 mmol/L (136-145); Total Protein 7.5 g/dL (6.4-8.2)
--- NOTE | 2019-01-23 14:45 | DI.CT_ITS ---
EXAM: CT CHEST WO CLINICAL HISTORY: cough, malaise. TECHNIQUE: The chest CT was carried out without contrast enhancement. COMPARISON: No exams were available for comparison FINDINGS: There is no evidence of a pulmonary infiltrate. A small area of left apical pleural scarring is demo nstrated. There is no pleural effusion. Heart is not enlarged. Borderline enlarged lymph nodes are noted in the mediastinum. No hilar adenopathy is identified on this noncontrast enhanced study. As visualized, the aorta appears intact. There are mild degenerative changes involving the dorsal spine . IMPRESSION: No evidence of acute cardiopulmonary disease.
--- NOTE | 2019-01-23 15:31 | ED.GENADUL_ITS ---
Discharge Plan Disposition Patient Disposition: HOME Condition: Good Discharge Details Chief Complaint: RespSymp Clinical Impression: Cough Primary Care Provider: Rodriguez Sanford ED Provider: Pattie Jorge Home Meds and New Rx's Prescriptions: No Action aspirin [Adult Aspirin Regimen] 81 mg tablet,delayed release (DR/EC) 81 mg PO DAILY RF: 0 Advair HFA 230-21 mcg/actuation HFA aerosol inhaler 2 puff IH BID RF: 0 gabapentin 800 mg tablet 800 mg PO QID RF: 0 glipizide 10 MG tablet 20 mg PO DAILY RF: 0 atenolol 25 MG tablet 25 mg PO DAILY RF: 0 omeprazole 20 MG capsule,delayed release(DR/EC) 20 mg PO DAILY RF: 0 Novolog PenFill U-100 Insulin 100 UNIT/1 ML cartridge 20 unit SQ QMEALS RF: 0 acarbose [Precose] 50 mg tablet 50 mg PO DIRECTED RF: 0 Spiriva with HandiHaler 1 PUFF capsule, w/inhalation device 1 puff Inhalation DAILY Qty: 1 RF: 0 albuterol sulfate [ProAir HFA] 90 mcg/actuation HFA aerosol inhaler 2 puff Inhalation PRN PRNRF: 0 Latuda 80 MG tablet 80 mg PO DAILY RF: 0 ipratropium-albuterol 3 ML solution for nebulization 3 ml UPD Q6H PRN PRNQty: 30 RF: 0 atorvastatin [Lipitor] 80 MG tablet 1 tab PO HS RF: 0 lisinopril 20 MG tablet 20 mg PO DAILY RF: 0 nicotine [Nicoderm CQ] 1 EACH patch 24 hour 21 mg Transdermal DAILY RF: 0 epinephrine [EpiPen 2-Cristian] 0.3 MG/0.3 ML auto-injector 1 ea UD PRN PRNRF: 0 prazosin 2 MG capsule 4 mg PO HS RF: 0 Lantus Solostar U-100 Insulin 100 unit/mL (3 mL) insulin pen 100 unit Sub-Q QAM RF: 0 gabapentin 800 mg tablet 800 mg PO QID Qty: 16 RF: 0 Discharge Instructions Instructions: Acute Cough (ED) Additional Instructions: Drink plenty of fluids. Use your daily inhalers and medications as previously prescribed. Rest activities as tolerated. Call your primary care doctor for recheck in the next 1 to 2 days. Your CAT scan evaluation did not show any identifiable pneumonia, lymph nodes still present in the mediastinum which we were discussed. Mild scarring of the lung noted. Follow-up with primary care doctor for these findings. Return for any worsening, concerns, difficulty breathing, chest pain or alarming symptoms sooner if needed Discharge Data Discharge Date/Time-TO BE ENTERED AT DEPARTURE: 01/23/19 15:50 Medical Decision Making 54-year-old man who has significant medical complications including diabetes, COPD, chronic pain syndrome, hypertension who presents for 1 week of cough and cold symptoms. Patient reports nasal congestion, sore throat, ear pressure sinus pressure, body ache and cough. Patient has a baseline cough due to COPD and smoking. Patient is concerned the possibility of pneumonia as he reports malaise and cough with production and wheezing. Patient is compliant with his daily inhalers. Patient using a steroid inhaler as well as a rescue inhaler. Does report relief after using rescue inhaler every 6 hours. Patient denies chest pain or back pain. Denies nausea, vomiting, diarrhea change in bowels. Patient is requesting a CT evaluation as he was due to have a scheduled CT by his primary care doctor today at 3:00 PM. Patient was scheduled for a noncontrast chest CT to follow-up on mediastinal lymph nodes which were present on a previous study. Given patient's planned CT will order CT in the emergency room in lieu of his outpatients study to evaluate for possible pneumonia. Patient CT ultimately shows no significant change in the mediastinal lymphadenopathy and has no identifiable findings consistent with pneumonia. Some scarring present patient. Patient's vital signs stable in the emergency room today. Patient was provided a DuoNeb and he does feel significantly improved. Will encourage continued use of his daily medications. Patient's oxygen saturations are maintained in the emergency room. Patient feeling signif icantly improved.. Patient encouraged close follow-up with his primary care doctor. Patient agrees with plan of care HPI General Date/Time Provider Initiated Documentation: 01/23/19 11:53 . HPI Narrative: This is a 54-year-old gentleman with a complicated medical history including CYLINDER FILLER D, diabetes, hypertension, chronic pain syndrome in conjunction to a psychologic history. Patient presents for feeling of illness. Patient reports he has onset 1 week ago of sore throat which lasted 3 days, has had nasal congestion and sinus pressure, right ear pressure and a cough which is worse than his typical. Patient is concerned he could have pneumonia. Patient denies measured fever or chills. Patient reports minimal production to cough. He is using his inhalers as previously prescribed. Patient does report some relief with his albuterol inhaler when taking it. Patient reports he did complete a course of antibiotics today which was prescribed from his PCP. Patient is scheduled to have a CT of his chest at 3:00 this afternoon but is requesting evaluation now as he was unable to see his doctor today. Patient denies chest pain or back pain which is new. No difficulty breathing or shortness of breath at this time. Related Data Home Medications Medication Instructions Recorded Confirmed Novolog PenFill U-100 Insulin 20 unit SQ QMEALS 08/09/12 01/23/19 atenolol 25 mg PO DAILY 08/09/12 01/23/19 glipizide 20 mg PO DAILY 08/09/12 01/23/19 omeprazole 20 mg PO DAILY 08/09/12 01/23/19 Spiriva with HandiHaler 1 puff INHALATION DAILY #1 laura 07/08/13 01/23/19 atorvastatin [Lipitor] 1 tab PO HS 09/04/17 01/23/19 epinephrine [EpiPen 2-Cristian] 1 ea UD PRN PRN 09/04/17 01/23/19 lisinopril 20 mg PO DAILY 09/04/17 01/23/19 nicotine [Nicoderm CQ] 21 mg TRANSDERMAL DAILY 09/04/17 01/23/19 prazosin 4 mg PO HS 09/04/17 01/23/19 Latuda 80 mg PO DAILY 09/05/17 01/23/19 ipratropium-albuterol 3 ml UPD Q6H PRN PRN #30 vial 09/08/17 01/23/19 acarbose 50 mg tablet 50 mg PO DIRECTED tab 06/13/18 01/23/19 albuterol sulfate 90 mcg/actuation 2 puff INHALATION PRN PRN gm 06/13/18 01/23/19 aerosol inhaler aspirin 81 mg tablet,delayed 81 mg PO DAILY 06/13/18 01/23/19 release fluticasone propionate-salmeterol 2 puff IH BID 06/13/18 01/23/19 230 mcg-21 mcg/actuation HFA inhaler gabapentin 800 mg tablet 800 mg PO QID tab 08/27/18 01/23/19 insulin glargine 100 unit/mL (3 100 unit SUB-Q QAM ml 08/27/18 01/23/19 mL) subcutaneous pen gabapentin 800 mg PO QID #16 tab 01/09/19 01/23/19 Previous Rx's Medication Instructions Recorded Spiriva with HandiHaler 1 puff INHALATION DAILY #1 laura 07/08/13 ipratropium-albuterol 3 ml UPD Q6H PRN PRN #30 vial 09/08/17 gabapentin 800 mg PO QID #16 tab 01/09/19 Allergies Allergy/AdvReac Type Severity Reaction Status Date / Time Fish Containing Products Allergy Severe Anaphylaxsi Verified 01/23/19 11:49 s tree nut [Tree Nut] Allergy Severe Anaphylaxsi Verified 01/23/19 11:49 s metformin Allergy Unknown Per office Verified 01/23/19 11:49 H&P venlafaxine HCl AdvReac Severe seizures Verified 01/23/19 11:49 [From Effexor] diclofenac [Diclofenac] AdvReac Intermediate Headache Verified 01/23/19 11:49 misoprostol AdvReac Intermediate Headache Verified 01/23/19 11:49 General Stated Complaint: RespSymp LINDY: 4 Review of Systems Review of Systems ROS Unobtainable: All systems reviewed & are unremarkable except as noted in HPI and below Constitutional Constitutional: Denies fever(s), Denies headache(s) and Reports malaise ENT Ears, Nose, Mouth, and Throat: Denies ear discharge, Reports otalgia, Denies headache(s), Reports nasal congestion, Reports post nasal drip, Reports sinus pain, Reports sinus pressure, Reports sore throat and Denies throat swelling Respiratory Respiratory: Reports chest congestion, Reports cough and Reports wheezing Gastrointestinal Gastrointestinal: Denies abdominal pain, Denies diarrhea, Denies nausea and Denies vomiting Neurologic Neurologic: Denies headache(s) Allergic/Immunologic Allergic/Immunologic: Denies throat swelling and Reports wheezing PFSH Social History Smoking/Tobacco Use Status: Current every day Tobacco Type: cigarettes Quit status: considering quitting Alcohol Intake: never Drug use: Occasionally Substance use type: marijuana Details: pt states that he smokes marijuana a few times a week Household members: family Housing: house current occupation: off work right now until july Current gender identity: male What is your relationship status?: Panel score (0-1 are the most socially isolated patients): 0 What type of physical activity do you participate in: none Do you feel safe at home: Yes Do you feel safe in your relationship?: Yes Exam Narrative Exam Narrative: CONST: Healthy appearing patient, in no acute distress. Well hydrated. Alert and alert. HENMT: Head nomocephalic, normal to inspection. Atraumatic. Hearing grossly normal. Pharyngeal erythema present. No exudates. Patient with TM injection bilaterally without obvious bulging. EYES: General normal appearance. Alignment normal. Eyelids normal. Conjunctiva normal. NECK: Normal visual inspection. FROM. Trachea midline. No Midline tenderness. Cervical lymphadenopathy present CHEST: Normal insepection of the chest. RESP: Normal respiratory effort. Speaking full sentences. No cough. No audible wheezing. No retractions. Wheezing present diffusely. CARDIO: No JVD. No obvious murmurs or rubs MUSCULOSKELETAL: Normal Gait. FROM of all extremities. SKIN: Normal. Dry. No rashes. NEURO: Alert and awake. Speech clear. PSYCH: Normal affect. Cooperative. Course Vital Signs Vital signs: Vital Signs Temperature 36.3 C L 01/23/19 11:44 Pulse 87 01/23/19 11:44 Respiratory Rate 16 01/23/19 11:44 Blood Pressure 147/69 H 01/23/19 11:44 Pulse Oximetry 95 01/23/19 11:44 Temperature 36.3 C L 01/23/19 11:44 Pulse 87 01/23/19 11:44 Respiratory Rate 16 01/23/19 11:44 Respiratory Effort 01/23/19 13:08 Blood Pressure 147/69 H 01/23/19 11:44 Blood Pressure Position Sitting 01/23/19 11:44 Pulse Oximetry 95 01/23/19 11:44 Oxygen Delivery Method Room Air 01/23/19 11:44 Oxygen Flow Rate 0 01/23/19 11:44 Pain Level 0 01/23/19 11:44 Lab/Test Results Lab/Test Results: 01/23/19 13:10 Nasopharynx Influenza Types A,B Antigen - Final Laboratory Tests Range/Units 01/23/19 01/23/19 13:18 13:18 WBC (4.4-10.8) k/cumm 14.60 H RBC (4.50-6.00) m/cumm 5.03 Hgb (13.5-17.5) g/dL 16.2 Hct (40.0-50.0) % 46.0 MCV (80-95) fL 91.5 MCH (27.0-33.0) pg 32.2 MCHC (32.0-36.0) g/dL 35.2 RDW (11.8-14.1) % 13.0 Plt Count (130-400) x1000/uL 249 MPV (8.0-11.0) fL 9.6 Immature Gran % 0.3 Neutrophils % 76.6 Lymphocytes % 17.2 Monocytes % 4.9 Eosinophils % 0.8 Basophils % 0.2 Absolute Neutrophils (1.2-6.7) k/cumm 11.18 H Absolute Lymphocytes (1.2-3.4) k/cumm 2.51 Absolute Monocytes (0.11-0.7) k/cumm 0.72 H Absolute Eosinophils (0.0-0.7) k/cumm 0.12 Absolute Basophils (0.0-0.2) k/cumm 0.03 Sodium (136-145) mmol/L 137 Potassium (3.5-5.1) mmol/L 4.4 Chloride (98-107) mmol/L 100 Carbon Dioxide (21.0-32.0) mmol/L 26.6 Anion Gap (3-11) mmol/L 10.4 BUN (7-18) mg/dL 13 Creatinine (0.70-1.30) mg/dL 1.07 Estimated GFR/1.73 m2 (mL/min/1.73m2) >= 60.00 Glucose (70-100) mg/dL 216 H Calcium (8.5-10.1) mg/dL 9.1 Total Bilirubin (0.2-1.0) mg/dL 0.4 AST (15-37) U/L 18 ALT (16-63) U/L 39 Alkaline Phosphatase (46-116) U/L 90 Total Protein (6.4-8.2) g/dL 7.5 Albumin (3.4-5.0) g/dL 4.0
== END 2019-01-23 15:50 | disposition home or self-care (01) ==
PROVIDERS: Emergency Provider Physician Assistant; PCP Nurse Practitioner Family
DX: R05 Cough (principal); I10 Essential (primary) hypertension; J44.9 Chronic obstructive pulmonary disease, unspecified; F11.90 Opioid use, unspecified, uncomplicated; F17.210 Nicotine dependence, cigarettes, uncomplicated; Z79.4 Long term (current) use of insulin
CPT/HCPCS: 36415; 36416; 71250; 80053; 82962; 87449; 94640; 99285; 85025; 99284; J7620

== ENCOUNTER 2019-04-18 01:02 | Outpatient (CLI) | payer MEDICAID, SELFPAY ==
--- NOTE | 2019-04-18 13:24 | DI.NM_ITS ---
APPROVED REPORT Exam: Exercise Treadmill with transition to Lexiscan Pharmacological Test Patient Location: Out-Patient Room/Bed: Stress Nurse: Evette Archer RN BMI: 39.81 Baseline Rhythm: Sinus Rhythm Indications: Patient states he is not sure of why his is doing stress test today. Patient arrived wit h his own portable oxygen tank set at 2L NC. He also reports lower back sciatica pain. Medical History Medical History: Anxiety, GERD, Depression, Obesity, Obstructive sleep apnea, PTSD, Bipolar Cardiac Medications: Aspirin, Atenolol, Atorvastatin, Lisinopril, Prazosin, , Allergies: Fish containing products, Tree Nuts, Metformin, Effexor, Diclofenac, Misoprostol Cardiac Risk Factors: HTN, Hyperlipidemia, Diabetes (insulin), Asthma, COPD, Smoking Previous Cardiac Procedures: None Pretest Chest Pain Characteristics: None Exercise History: Sedentary Physical Disabilities: Lower Back Pain Sciatica Lung Sounds: Clear to auscultation Heart Sounds: Regular Stress Test Details Test: Exercise stress converted to pharmacologic stress due to failure to obtain a diagnostic stress test. Reason for pharmacologic stress test: physical limitation. Nuclear Acquisition: Rest Tc-99m/Stress Tc-99m 1 day Rest Isotope: Tc-99m Sestamibi. Dose: 12.1 Date: 04/18/2019 Injection Time: 1145 Stress Isotope: Tc-99m Sestamibi. Dose: 37.5 Date: 04/18/2019 Injection Time: 1340 HR Max Heart Rate (APMHR): 165 bpm Resting HR Supine: 68 bpm Target HR (85% APMHR): 140 bpm Resting HR Standin bpm Max HR Achieved: 100 bpm % of APMHR: 60 HR response to stress: Normal HR response to stress BP Resting BP Supine: 126/72 mmHg Resting BP Standin/72 mmHg Max BP: 160/78 mmHg BP response to stress: Normal blood pressure response to stress. ECG Resting ECG: Sinus Rhythm ST Change: Normal Stress ECG: Sinus Rhythm ST Change: Normal Arrhythmia: None Recovery ECG: Sinus Rhythm Recovery ST Change: Normal Recovery Arrhythmia: None Clinical Stress Symptoms: Midsternal chest tightness/cramping at 35 seconds post Lexiscan injection which re solved at 3 minutes 50 seconds post Lexiscan injection Exercise duration: 1 min2 sec Highest Stage Achieved: Stage 1: 1.7 mph at 10% grade. Stress ECG Conclusion 1. There is no evidence of ischemia on the ECG portion of this exam. Protocol Used: Regadenoson Stress Test Summary STAGE HR BP Symptoms NOTES Supine 68 126/72 Standing 82 124/72 1 min 100 160/78 2 min 3 min 77 148/76 4 min 5 min 6 min 71 142/74 7 min 8 min 9 min 69 130/90 10 min MPI Conclusion Ejection fraction was 49% with stress. There is no evidence of ischemia on the imaging portion of this exam. This represents a normal SPECT stress test.
[2019-04-18] MEDS: Regadenoson 0.4 MG/5 ML SYR IVP (14:23)
== END 2019-04-18 01:22 ==
PROVIDERS: PCP Nurse Practitioner Family; Visit Provider Family Medicine
DX: R06.09 Other forms of dyspnea (principal); F17.220 Nicotine dependence, chewing tobacco, uncomplicated; J44.9 Chronic obstructive pulmonary disease, unspecified; Z99.81 Dependence on supplemental oxygen; I10 Essential (primary) hypertension; E78.5 Hyperlipidemia, unspecified; F41.8 Other specified anxiety disorders; E11.9 Type 2 diabetes mellitus without complications; Z79.4 Long term (current) use of insulin; K21.9 Gastro-esophageal reflux disease without esophagitis
CPT/HCPCS: 78452; 93017; J2785

== ENCOUNTER 2019-06-09 11:29 | Emergency (ER) | payer MEDICAID, SELFPAY ==
[2019-06-09 11:32] VITALS: BP 135/63; PULSE 97; RESP 18; TEMP 37; O2SAT 94
[2019-06-09] MEDS: Ketorolac 15 MG/ML VIAL IM (12:53)
--- NOTE | 2019-06-10 10:29 | ED.GENADUL_ITS ---
Discharge Plan Disposition Patient Disposition: HOME Condition: Stable Discharge Details Chief Complaint: DentalOral Clinical Impression: Abscess, dental Primary Care Provider: Rodriguez Sanford ED Provider: Pattie Jorge Home Meds and New Rx's Prescriptions: New penicillin V potassium 500 mg tablet 500 mg PO QID Qty: 40 RF: 0 acetaminophen [Tylenol Extra Strength] 500 mg tablet 500 mg PO Q6H PRN (Reason: pain) Qty: 20 RF: 0 Continued aspirin [Adult Aspirin Regimen] 81 mg tablet,delayed release (DR/EC) 81 mg PO DAILY RF: 0 Advair HFA 230-21 mcg/actuation HFA aerosol inhaler 2 puff IH BID RF: 0 gabapentin 800 mg tablet 800 mg PO QID RF: 0 glipizide 10 MG tablet 20 mg PO DAILY RF: 0 atenolol 25 MG tablet 25 mg PO DAILY RF: 0 omeprazole 20 MG capsule,delayed release(DR/EC) 20 mg PO DAILY RF: 0 insulin aspart U-100 [Novolog PenFill U-100 Insulin] 100 UNIT/1 ML cartridge 20 unit SQ QMEALS RF: 0 acarbose [Precose] 50 mg tablet 50 mg PO DIRECTED RF: 0 Spiriva with HandiHaler 1 PUFF capsule, w/inhalation device 1 puff Inhalation DAILY Qty: 1 RF: 0 albuterol sulfate [ProAir HFA] 90 mcg/actuation HFA aerosol inhaler 2 puff Inhalation PRN PRNRF: 0 Latuda 80 MG tablet 80 mg PO DAILY RF: 0 ipratropium-albuterol 3 ML solution for nebulization 3 ml UPD Q6H PRN PRNQty: 30 RF: 0 atorvastatin [Lipitor] 80 MG tablet 1 tab PO HS RF: 0 lisinopril 20 MG tablet 20 mg PO DAILY RF: 0 nicotine [Nicoderm CQ] 1 EACH patch 24 hour 21 mg Transdermal DAILY RF: 0 epinephrine [EpiPen 2-Cristian] 0.3 MG/0.3 ML auto-injector 1 ea UD PRN PRNRF: 0 prazosin 2 MG capsule 4 mg PO HS RF: 0 Lantus Solostar U-100 Insulin 100 unit/mL (3 mL) insulin pen 100 unit Sub-Q QAM RF: 0 gabapentin 800 mg tablet 800 mg PO QID Qty: 16 RF: 0 Discharge Instructions Instructions: Dental Abscess (ED) Additional Instructions: Warm salt water rinses after eating or drinking. Ice to the cheek for swelling. Keep head of bed elevated when sleeping for comfort at night. Tylenol as prescribed. Rest activities as tolerated. Antibiotic as prescribed. Follow-up promptly with dentist as discussed in the next 1 to 2 days. Closely monitor your blood sugars Return for worsening, concerns or alarming symptoms sooner if needed. Specifically return for fevers, increasing facial pain or swelling. Discharge Data Discharge Date/Time-TO BE ENTERED AT DEPARTURE: 06/09/19 13:38 Medical Decision Making This is a 54-year-old patient presenting for dental abscess and swelling with known widespread dental caries. Patient has facial swelling and an abscess at the site of tooth #27/28. Patient has no tenderness overlying the sinus. No neck involvement. No associated trismus. Is able to eat and drink and does feel well hydrated. Discussed antibiotic treatment alone versus antibiotic treatment in attempt of incision and drainage. Patient's preference is to try incision and drainage at this time. Patient area anesthetized with 1% lidocaine locally. Small incision made over area of fluctuance without obvious purulent drainage. 18-gauge needle used for deeper aspiration with again minimal drainage present. Patient rinsed. No associated complication after procedure. Will provide antibiotics. Conservative treatments discussed. Elevating head as well as a CT discussed. Recommended close follow-up with dentist. The patient was stable and requested discharge. Prior to discharge, my usual and customary return precautions were reviewed with the patient - this included follow-up instructions and reasons to return to the Emergency Department if conditions worsens, does not improve as expected, or other new concerns arise. HPI General Date/Time Provider Initiated Documentation: 06/09/19 12:40 . HPI Narrative: This a 54-year-old patient presenting for complaints of dental pain. Patient reports worsening dental pain in the last few days. Patient reports area of swelling noted to the right lower jaw. Patient concerned with the possibility of dental infection. Patient has widespread dental caries and requires extraction but is fearful of the dentist. Patient does plan to call his dentist on Monday. Patient denies fever, chills, nausea, vomiting. Has been monitoring his blood sugars which have not been increasing. Patient reports blood sugar this morning was 115. Patient denies inability to eating or drinking. Patient reports pain does radiate toward his sinus on the right. Denies any neck involvement. Again denies systemic symptoms. No other concerns or complaints. No recent dental injury. Related Data Home Medications Medication Instructions Recorded Confirmed atenolol 25 mg PO DAILY 08/09/12 06/09/19 glipizide 20 mg PO DAILY 08/09/12 06/09/19 insulin aspart U-100 [Novolog 20 unit SQ QMEALS 08/09/12 06/09/19 PenFill U-100 Insulin] omeprazole 20 mg PO DAILY 08/09/12 06/09/19 Spiriva with HandiHaler 1 puff INHALATION DAILY #1 laura 07/08/13 06/09/19 atorvastatin [Lipitor] 1 tab PO HS 09/04/17 06/09/19 epinephrine [EpiPen 2-Cristian] 1 ea UD PRN PRN 09/04/17 06/09/19 lisinopril 20 mg PO DAILY 09/04/17 06/09/19 nicotine [Nicoderm CQ] 21 mg TRANSDERMAL DAILY 09/04/17 06/09/19 prazosin 4 mg PO HS 09/04/17 06/09/19 Latuda 80 mg PO DAILY 09/05/17 06/09/19 ipratropium-albuterol 3 ml UPD Q6H PRN PRN #30 vial 09/08/17 06/09/19 acarbose 50 mg tablet 50 mg PO DIRECTED tab 06/13/18 06/09/19 albuterol sulfate 90 mcg/actuation 2 puff INHALATION PRN PRN gm 06/13/18 06/09/19 aerosol inhaler aspirin 81 mg tablet,delayed 81 mg PO DAILY 06/13/18 06/09/19 release fluticasone propionate 230 2 puff IH BID 06/13/18 06/09/19 mcg-salmeterol 21 mcg/actuation HFA inhaler gabapentin 800 mg tablet 800 mg PO QID tab 08/27/18 06/09/19 insulin glargine 100 unit/mL (3 100 unit SUB-Q QAM ml 08/27/18 06/09/19 mL) subcutaneous pen gabapentin 800 mg PO QID #16 tab 01/09/19 06/09/19 acetaminophen [Tylenol Extra 500 mg PO Q6H PRN #20 tab 06/09/19 Strength] penicillin V potassium 500 mg PO QID #40 tab 06/09/19 Previous Rx's Medication Instructions Recorded Spiriva with HandiHaler 1 puff INHALATION DAILY #1 laura 07/08/13 ipratropium-albuterol 3 ml UPD Q6H PRN PRN #30 vial 09/08/17 gabapentin 800 mg PO QID #16 tab 01/09/19 acetaminophen [Tylenol Extra 500 mg PO Q6H PRN #20 tab 06/09/19 Strength] penicillin V potassium 500 mg PO QID #40 tab 06/09/19 Allergies Allergy/AdvReac Type Severity Reaction Status Date / Time Fish Containing Products Allergy Severe Anaphylaxsi Verified 06/09/19 11:36 s tree nut [Tree Nut] Allergy Severe Anaphylaxsi Verified 06/09/19 11:36 s metformin Allergy Unknown Per office Verified 06/09/19 11:36 H&P venlafaxine HCl AdvReac Severe seizures Verified 06/09/19 11:36 [From Effexor] diclofenac [Diclofenac] AdvReac Intermediate Headache Verified 06/09/19 11:36 misoprostol AdvReac Intermediate Headache Verified 06/09/19 11:36 General Stated Complaint: DentalOral LINDY: 4 Review of Systems All systems reviewed & are unremarkable except as noted in HPI and below Constitutional Constitutional: Denies chills, Denies fatigue, Denies fever(s), Denies headache(s) and Denies malaise ENT Ears, Nose, Mouth, and Throat: Reports dental pain, Denies otalgia, Reports facial pain, Denies headache(s), Reports mouth pain, Denies nasal congestion and Denies nasal discharge Respiratory Respiratory: Denies cough Integumentary/Breasts Skin/Breast: Denies erythema and Denies rash Neurologic Neurologic: Denies headache(s) Endocrine Endocrine: Denies fatigue [facility] Social History Smoking/Tobacco Use Status: Current every day Tobacco Type: cigarettes Quit status: considering quitting Alcohol Intake: never Drug use: Occasionally Substance use type: marijuana Details: pt states that he smokes marijuana a few times a week Household members: family Housing: house current occupation: off work right now until july Current gender identity: male What is your relationship status?: Panel score (0-1 are the most socially isolated patients): 0 What type of physical activity do you participate in: none Do you feel safe at home: Yes Do you feel safe in your relationship?: Yes Exam Narrative Exam Narrative: CONST: no acute distress. Well hydrated. Alert and oriented. HENMT: Head nomocephalic, normal to inspection. Atraumatic. Hearing grossly normal. TMs appear normal bilaterally. No pharyngeal erythema. Patient with widespread dental caries, notable dental abscess developing in the right lower jaw at approximately tooth 27/28. Mild fluctuation noted. Facial swelling present without overlying cellulitis. EYES: General normal appearance. Alignment normal. Eyelids normal. Conjunctiva normal. NECK: Normal visual inspection. FROM. Trachea midline. No Midline tenderness. Cervical and adenopathy present CHEST: Normal insepection of the chest. RESP: Normal respiratory effort. Speaking full sentences. No cough. No audible wheezing. No retractions. Breath sounds clear, full and equal bilaterally. CARDIO: No JVD. No murmur. Regular rate and rhythm Course Vital Signs Vital signs: Vital Signs Temperature 37.0 C 06/09/19 11:32 Pulse 97 H 06/09/19 11:32 Respiratory Rate 18 06/09/19 11:32 Blood Pressure 135/63 06/09/19 11:32 Pulse Oximetry 94 L 06/09/19 11:32 Temperature 37.0 C 06/09/19 11:32 Temperature Source Skin 06/09/19 11:32 Pulse 97 H 06/09/19 11:32 Respiratory Rate 18 06/09/19 11:32 Respiratory Effort 06/09/19 11:35 Blood Pressure 135/63 06/09/19 11:32 Blood Pressure Position Sitting 06/09/19 11:32 Pulse Oximetry 94 L 06/09/19 11:32 Oxygen Delivery Method Room Air 06/09/19 11:32 Oxygen Flow Rate 0 06/09/19 11:32 Pain Level 0 06/09/19 13:40
== END 2019-06-09 13:38 | disposition home or self-care (01) ==
PROVIDERS: Emergency Provider Physician Assistant; PCP Nurse Practitioner Family
DX: K04.7 Periapical abscess without sinus (principal)
CPT/HCPCS: 10060; 96372; J1885

== ENCOUNTER 2019-09-13 19:56 | Emergency (ER) | payer MEDICAID, SELFPAY ==
[2019-09-13 20:01] VITALS: BP 133/92; PULSE 88; RESP 18; TEMP 36.3; O2SAT 94
--- NOTE | 2019-09-13 20:01 | ED.GENADUL_ITS ---
Discharge Plan Disposition Patient Disposition: HOME Condition: Stable Discharge Details Chief Complaint: Abd Prob Clinical Impression: Abdominal pain Primary Care Provider: Rodriguez Sanford ED Provider: Daquan Hollingsworth Home Meds and New Rx's Prescriptions: Continued aspirin [Adult Aspirin Regimen] 81 mg tablet,delayed release (DR/EC) 81 mg PO DAILY RF: 0 Advair HFA 230-21 mcg/actuation HFA aerosol inhaler 2 puff IH BID RF: 0 polyethylene glycol 3350 [Miralax] 17 gram/dose powder 17 gm PO PRN RF: 0 amoxicillin 500 mg capsule 500 mg PO TID RF: 0 guaifenesin [Mucinex] 600 mg tablet extended release 12hr 600 mg PO BID RF: 0 glipizide 10 MG tablet 20 mg PO DAILY RF: 0 atenolol 25 MG tablet 25 mg PO DAILY RF: 0 omeprazole 20 MG capsule,delayed release(DR/EC) 20 mg PO DAILY RF: 0 insulin aspart U-100 [Novolog PenFill U-100 Insulin] 100 UNIT/1 ML cartridge 20 unit SQ QMEALS RF: 0 acarbose [Precose] 50 mg tablet 50 mg PO DIRECTED RF: 0 Spiriva with HandiHaler 1 PUFF capsule, w/inhalation device 1 puff Inhalation DAILY Qty: 1 RF: 0 albuterol sulfate [ProAir HFA] 90 mcg/actuation HFA aerosol inhaler 2 puff Inhalation PRN PRNRF: 0 Latuda 80 MG tablet 80 mg PO DAILY RF: 0 ipratropium-albuterol 3 ML solution for nebulization 3 ml UPD Q6H PRN PRNQty: 30 RF: 0 atorvastatin [Lipitor] 80 MG tablet 1 tab PO HS RF: 0 lisinopril 20 MG tablet 20 mg PO DAILY RF: 0 nicotine [Nicoderm CQ] 1 EACH patch 24 hour 21 mg Transdermal DAILY RF: 0 epinephrine [EpiPen 2-Cristian] 0.3 MG/0.3 ML auto-injector 1 ea UD PRN PRNRF: 0 prazosin 2 MG capsule 4 mg PO HS RF: 0 Lantus Solostar U-100 Insulin 100 unit/mL (3 mL) insulin pen 100 unit Sub-Q QAM RF: 0 acetaminophen [Tylenol Extra Strength] 500 mg tablet 500 mg PO Q6H PRN (Reason: pain) Qty: 20 RF: 0 Discharge Instructions Instructions: Abdominal Pain (ED) Additional Instructions: follow up with your primary care provider as scheduled on Monday if you feel more ill or have persistent vomit or significant increase in pain return to the emergency department Medical Decision Making <PREETI Pisano - Last Filed: 09/13/19 23:06> Patient is a pleasant 54-year-old gentleman past medical history significant for anxiety, GERD, depression, tobacco use disorder, chronic back pain, hyperlipidemia, diabetes, hypertension, asthma, COPD, obesity, PTSD. He is presenting today with chief complaint of 3 weeks of abdominal discomfort. He reports he was seen by his primary care 1 week ago at which time patient had been scheduled for colonoscopy. Patient reports that since seeing primary care, the pain has continued to increase. He states that pain is maximal after eating. States that this can cause him to be nauseated as well. He denies any vomiting. Denies any fevers or chills. States that he has been having difficulty with bowel movements and that he has been using MiraLAX. States that his last bowel movement was soft 3 hours ago. He denies any blood in the stool. Has been unable to pass flatus. Has never had discomfort or bloating like this previously. He denies any previous abdominal surgeries. Patient endorses chronic back pain that is unchanged from baseline. On exam, patient is resting comfortably. Vital signs are stable. Patient appears nontoxic. Does have a distended abdomen. He has hypoactive bowel sounds. He has left lower quadrant abdominal pain and some mild tenderness on the right side as well. Patient appears nontoxic. Plan for labs and CT imaging. Conserned for constipation, diverticulitis vs. other. CBC reveals mild leukocytosis, this is baseline for the patient. At the end of my shift, care transitioned to Dr. Hollingsworth with remaining labs and imaging pending. <Daquan Hollingsworth MD - Last Filed: 09/13/19 21:55> labs and imaging unremarkable and he is currently feeling well without complaints and soft nontender abdomen. CTdid show small ventral hernia but none felt on examand no pain on examso doubt incarceration vs strangulation. ADvised to f/u with pcp with return precautions Imaging Data Radiologic Study: Attestation: I personally reviewed and interpreted this imaging study as follows: Imaging: CT Scan Radiologist's impression: IMPRESSION: 1. No acute abnormality in the abdomen and pelvis. 2. Trace diverticulosis without diverticulitis. 3. Small wide-mouth ventral hernia containing several loops of normal small bowel. Lab Data Lab results reviewed: Yes I reviewed the patient's lab results. HPI <PREETI Pisano - Last Filed: 09/13/19 23:06> General Mode of arrival: ambulatory . Date/Time Provider Initiated Documentation: 09/13/19 20:01 . Limitations to Documentation: no limitations . Information obtained by: patient and RN notes reviewed . History of Present Illness 54 year old M presents to the emergency department with the chief complaint of LLQ abdominal pain, bloating, described as moderate, Quality is described as aching, and is localized to the abdomen. Patient reports no radiation. Patient started experiencing this week(s) (3) and it has been constant. No relieving factors improve symptom(s), Eating worsens symptoms . Patient notes loss of appetite and nausea/vomiting (endorses nausea, no vomiting); denies chest pain, cough, fever/chills, headaches, rash, shortness of breath and weakness. Patient did receive the following treatments prior to arrival, none Related Data Home Medications Medication Instructions Recorded Confirmed atenolol 25 mg PO DAILY 08/09/12 06/09/19 glipizide 20 mg PO DAILY 08/09/12 06/09/19 insulin aspart U-100 [Novolog 20 unit SQ QMEALS 08/09/12 06/09/19 PenFill U-100 Insulin] omeprazole 20 mg PO DAILY 08/09/12 06/09/19 Spiriva with HandiHaler 1 puff INHALATION DAILY #1 laura 07/08/13 06/09/19 atorvastatin [Lipitor] 1 tab PO HS 09/04/17 06/09/19 epinephrine [EpiPen 2-Cristian] 1 ea UD PRN PRN 09/04/17 06/09/19 lisinopril 20 mg PO DAILY 09/04/17 06/09/19 nicotine [Nicoderm CQ] 21 mg TRANSDERMAL DAILY 09/04/17 06/09/19 prazosin 4 mg PO HS 09/04/17 06/09/19 Latuda 80 mg PO DAILY 09/05/17 06/09/19 ipratropium-albuterol 3 ml UPD Q6H PRN PRN #30 vial 09/08/17 06/09/19 acarbose 50 mg tablet 50 mg PO DIRECTED tab 06/13/18 06/09/19 albuterol sulfate 90 mcg/actuation 2 puff INHALATION PRN PRN gm 06/13/18 06/09/19 aerosol inhaler aspirin 81 mg tablet,delayed 81 mg PO DAILY 06/13/18 06/09/19 release fluticasone propionate 230 2 puff IH BID 06/13/18 06/09/19 mcg-salmeterol 21 mcg/actuation HFA inhaler insulin glargine 100 unit/mL (3 100 unit SUB-Q QAM ml 08/27/18 06/09/19 mL) subcutaneous pen acetaminophen [Tylenol Extra 500 mg PO Q6H PRN #20 tab 06/09/19 Strength] amoxicillin 500 mg capsule 500 mg PO TID 09/11/19 guaifenesin 600 mg tablet, 600 mg PO BID 09/11/19 extended release 12 hr polyethylene glycol 3350 17 17 gm PO PRN gm 09/11/19 gram/dose oral powder Previous Rx's Medication Instructions Recorded Spiriva with HandiHaler 1 puff INHALATION DAILY #1 laura 07/08/13 ipratropium-albuterol 3 ml UPD Q6H PRN PRN #30 vial 09/08/17 acetaminophen [Tylenol Extra 500 mg PO Q6H PRN #20 tab 06/09/19 Strength] Allergies Allergy/AdvReac Type Severity Reaction Status Date / Time Fish Containing Products Allergy Severe Anaphylaxsi Verified 06/09/19 11:36 s tree nut [Tree Nut] Allergy Severe Anaphylaxsi Verified 06/09/19 11:36 s metformin Allergy Unknown Per office Verified 06/09/19 11:36 H&P venlafaxine HCl AdvReac Severe seizures Verified 06/09/19 11:36 [From Effexor] diclofenac [Diclofenac] AdvReac Intermediate Headache Verified 06/09/19 11:36 misoprostol AdvReac Intermediate Headache Verified 06/09/19 11:36 General LINDY: 4 Review of Systems <PREETI Pisano - Last Filed: 09/13/19 23:06> Constitutional Constitutional: Reports as per HPI, Denies chills, Denies fatigue, Denies fever(s) and Denies headache(s) ENT Ears, Nose, Mouth, and Throat: Denies headache(s) Cardiovascular Cardiovascular: Reports as per HPI, Denies chest pain and Denies dyspnea Respiratory Respiratory: Reports as per HPI, Denies cough and Denies dyspnea Gastrointestinal Gastrointestinal: Reports as per HPI Genitourinary Genitourinary: Denies system reviewed and no additional complaints, except as documented (patient denies any change in urinary habits) Musculoskeletal Musculoskeletal: Reports as per HPI and Reports back pain (Patient endorses chronic back pain with no recent change) Integumentary/Breasts Skin/Breast: Reports as per HPI and Denies rash Neurologic Neurologic: Reports as per HPI and Denies headache(s) Endocrine Endocrine: Denies fatigue PFSH <PREETI Pisano - Last Filed: 09/13/19 23:06> Medical History Abnormal EKG (Acute) Bipolar 2 disorder (Chronic) Constipation (Acute) Diabetes DM2 (diabetes mellitus, type 2) (Chronic) Drug abuse, opioid type (Acute) Glaucoma, left eye (Chronic) Hypertension Myopia, bilateral (Acute) Obesity Onychomycosis (Acute) Presbyopia (Acute) Radiculopathy of lumbar region (Acute) Sleep apnea (Chronic) Sleep disturbance (Acute) Stage 2 moderate COPD by GOLD classification (Chronic) Surgical History Colonoscopy - MAC not completed due to incomplete prep Social History Smoking/Tobacco Use Status: Current every day Tobacco Type: cigarettes Quit status: considering quitting Alcohol Intake: never Drug use: Daily Substance use type: marijuana Details: pt states that he smokes marijuana daily Household members: family Housing: house current occupation: off work right now until july Current gender identity: male What is your relationship status?: Panel score (0-1 are the most socially isolated patients): 0 What type of physical activity do you participate in: none Do you feel safe at home: Yes Do you feel safe in your relationship?: Yes Exam <PREETI Pisano - Last Filed: 09/13/19 23:06> Const General: cooperative, healthy appearing, comfortable, no acute distress and well developed Nutritional Appearance: well nourished and overweight Orientation: alert and awake HENMA Head: normal to inspection Mouth: moist mucous membranes Resp Effort & Inspection: normal respiratory effort, able to speak in complete sentences and no respiratory distress Auscultation: clear to auscultation bilaterally, no rales, no rhonchi and no wheezes Cardio Rate: regular rate Rhythm: regular rhythm Heart Sounds: S1 normal and S2 normal GI Inspection: distended, obesity, no visible herniation, no visible pulsation and No visible peristalsis Palpation: soft, no hepatosplenomegaly, not firm, guarding in the LLQ, no hepatosplenomegaly, no masses, no pulsatile masses, not rigid and tender in the LLQ, in the RLQ and with rebound tenderness Percussion: normal to percussion Auscultation: hypoactive bowel sounds Back/Spine/Pelvis Back: no CVA tenderness Skin General skin exam: no rashes or lesions noted Trauma: no lacerations or abrasions Neuro General: patient alert and patient awake Cognition: normal cognition Speech: speech normal Gait: normal gait Extrem General: normal to inspection Psych Appearance: grossly normal and well kempt Mental Status: mental status grossly normal Speech and Movement: speech and movement normal Sign Out <PREETI Pisano - Last Filed: 09/13/19 23:06> Sign Out Data: Sign Out Comment: The end of my shift, care transition to Dr. Marcus he was CT and CMP pending. Last updated by Connie Vasquez PA at 09/13/19 20:57
[2019-09-13 20:39] LABS: Abs Immature Grans 0.06 k/cumm (0.0-0.09); Absolute Basophil Count 0.03 k/cumm (0.0-0.2); Absolute Eosinophil Count 0.19 k/cumm (0.0-0.7); Absolute Monocyte Count 0.76 k/cumm (0.11-0.7); Basophils % 0.2; Eosinophils % 1.4; HCT 45.1 % (40.0-50.0); HGB 15.8 g/dL (13.5-17.5); Immature Grans % 0.4 %; Lymphocytes % 21.6; Mean Corpuscular Hemoglobin 31.9 pg (27.0-33.0); Mean Corpuscular Volume 90.9 fL (80-95); Mean Platelet Volume 9.9 fL (8.0-11.0); Monocytes % 5.7; Neutrophils % 70.7; Platelet Count 188 x1000/uL (130-400); RBC 4.96 m/cumm (4.50-6.00); RBC Distribution Width 13.7 % (11.8-14.1); White Blood Cell Count 13.42 k/cumm (4.4-10.8)
[2019-09-13 20:40] LABS: Bilirubin Negative (Negative); Blood Negative (Negative); Clarity Clear (Clear); Glucose Negative (Negative); Ketones Negative (Negative); Leukocyte Esterase Negative (Negative); Nitrite Negative (Negative); Urobilinogen 0.2 EU/dL (Up TO 0.2); pH 5.5 (5-8)
[2019-09-13] MEDS: Normal Saline Flush 10 ML SYR IVP (20:42)
--- NOTE | 2019-09-13 20:46 | DI.CT_ITS ---
EXAM: CT ABDOMEN PELVIS W CLINICAL HISTORY: LLQ pain, bloating TECHNIQUE: COMPARISON: CT CHEST FOR PULMONARY EMBOLUS from 09/04/2017 FINDINGS: When a her of the abdomen and pelvis was performed with bolus infusion of 100 cc of Omnipaque 350. Images obtained through the lung bases show minimal scarring. Question trace right pleural effusion. There is hepatic steatosis. No focal hepatic abnormality seen. Spleen is unremarkable. Pancreas ap pears normal. Gallbladder and bile ducts appear normal. Adrenals and kidneys appear normal. No urinary tract calcification or obstruction. Abdominal aorta is of normal diameter and no abnormality of the major visceral branches is seen. No significant abdominal wall hernia. No abdominal or pelvic adenopathy. There is small appendicoliths or opaque ingested material in the appendix. No evidence of inflammati on. No evidence of diverticulitis. Urinary bladder grossly unremarkable in appearance. IMPRESSION: Hepatic steatosis. No evidence of acute intra-abdominal process.
[2019-09-13] MEDS: Normal Saline - Diluent 50 ML VIAL IV (20:47)
[2019-09-13] MEDS: Omnipaque 350 MG/ML 100 ML BTL IJ (20:48)
[2019-09-13 20:51] LABS: Absolute Neutrophil Count 9.49 k/cumm (1.2-6.7)
[2019-09-13 20:54] LABS: ALT 53 U/L (16-63); AST 20 U/L (15-37); Albumin 4.2 g/dL (3.4-5.0); Alkaline Phosphatase 97 U/L (46-116); Anion Gap 9.7 mmol/L (3-11); BUN 11 mg/dL (7-18); Bilirubin, Total 0.6 mg/dL (0.2-1.0); CO2 27.3 mmol/L (21.0-32.0); CREATININE 0.99 mg/dL (0.70-1.30); Chloride 98 mmol/L (98-107); Glucose 139 mg/dL (74-106); Lipase 74 U/L (73-393); Potassium 3.8 mmol/L (3.5-5.1); Sodium 135 mmol/L (136-145); Total Protein 7.6 g/dL (6.4-8.2)
[2019-09-13] MEDS: Lactated Ringers 1,000 ML 1000 ML IV (20:58)
--- NOTE | 2019-09-13 21:08 | DI.VRAD_ITS ---
PROCEDURE INFORMATION: Exam: CT Abdomen And Pelvis With Contrast Exam date and time: 09/13/2019 8:11 PM Age: 54 years old Clinical indication: Abdominal pain; Localized; Left lower quadrant (llq); Additional info: Pain and bloating TECHNIQUE: Imaging protocol: Computed tomography of the abdomen and pelvis with intravenous contrast. Radiation optimization: All CT scans at this facility use at least one of these dose optimization techniques: automated exposure control; mA and/or kV adjustment per patient size (includes targeted exams where dose is matched to clinical indication); or iterative reconstruction. Contrast material: [id number]; Contrast volume: 100 ml; Contrast route: IV RT HAND 20G; COMPARISON: CT PELVIC/LOWER ABD WITH CON(P) 11/23/2015 12:06 PM FINDINGS: Lungs: Right basilar atelectasis and ventral, fat density nodular scarring without definite soft tissue nodule. Pleural space: Trace right pleural effusion versus prominent pleural fat. Liver: The liver is normal. Gallbladder and bile ducts: The gallbladder is normal. Pancreas: Splenule.The pancreas is normal. Spleen: The spleen is normal. Adrenals: The adrenal glands are normal. Kidneys and ureters: The kidneys are normal. Stomach and bowel: Trace diverticulosis without diverticulitis in the distal colon. Appendix: Small appendicolith. Otherwise normal appendix. Intraperitoneal space: Unremarkable. No free air. No significant fluid collection. Vasculature: The aorta demonstrates mild atherosclerotic calcification. Lymph nodes: Unremarkable. No enlarged lymph nodes. Bladder: The bladder is normal. Reproductive: Unremarkable as visualized. Bones/joints: Unremarkable. No acute fracture. Soft tissues: Small wide-mouth ventral hernia containing a few normal loops of small bowel. IMPRESSION: 1. No acute abnormality in the abdomen and pelvis. 2. Trace diverticulosis without diverticulitis. 3. Small wide-mouth ventral hernia containing several loops of normal small bowel. Dictated and Authenticated by: Zackery Vásquez MD. Ordering:LYNN Rosales MD
[2019-09-13 21:58] VITALS: BP 128/89; PULSE 87; RESP 16; TEMP 36.2; O2SAT 97
== END 2019-09-13 22:00 | disposition home or self-care (01) ==
PROVIDERS: Physician Assistant; Emergency Provider Emergency Medicine; PCP Nurse Practitioner Family
DX: R10.32 Left lower quadrant pain (principal); R14.0 Abdominal distension (gaseous); R11.0 Nausea; E11.9 Type 2 diabetes mellitus without complications; Z79.4 Long term (current) use of insulin; I10 Essential (primary) hypertension; J44.9 Chronic obstructive pulmonary disease, unspecified; F17.210 Nicotine dependence, cigarettes, uncomplicated
CPT/HCPCS: 36415; 80053; 83690; 96360; 99285; 74177; 81003; 85025; J3490

== ENCOUNTER 2019-09-24 07:37 | Outpatient (CLI) | payer MEDICAID, SELFPAY ==
[2019-09-25 11:46] LABS: COVID-19 RT-PCR UVMMC Result Negative (Negative)
== END 2019-09-24 07:57 ==
PROVIDERS: PCP Nurse Practitioner Family; Visit Provider Surgery
DX: Z11.59 Encounter for screening for other viral diseases (principal); Z01.818 Encounter for other preprocedural examination
CPT/HCPCS: U0003

== ENCOUNTER 2019-09-27 06:51 | Day surgery (SDC) | payer MEDICAID, SELFPAY ==
--- NOTE | 2019-09-26 15:32 | NUR.NOTE ---
09/25 1315 La from [facility] called. stated that pt. called her and saif his blood sugar levels were low, and he was starting his bowel prep, pt was then transferred via phone to this RN, this RN suggested pt. to drink some juice or sugar water. Pt. stated blood sugar normally runs around 230, and was now 112 and falling. Pt. educated on hypoglycemia signs, and to test his blood sugar regularly and to take sugar water if needed if his fingersticks begin to drop. Pt. stated understanding. Informed office, and consulted with Pedro from [facility], and Dr. Botello, due to the fact pt. drank 4 oz. of orange juice with pulp, Dr. Botello stated she thought with the small amount that he should be ok for his colonoscopy. Nursing Note:
[2019-09-27 07:24] VITALS: BP 109/49; PULSE 76; RESP 18; TEMP 36.5; O2SAT 95
[2019-09-27] MEDS: Lactated Ringers 1,000 ML 80 ML IV (07:43)
--- NOTE | 2019-09-27 08:06 | W.PM.DSUDISC ---
Discharge Plan Disposition Patient Disposition: HOME Condition: Good Discharge Details Reason For Visit: EGD, Colonoscopy Attending Provider: Lissette Soliman Primary Care Provider: Rodriguez Sanford Home Meds and New Rx's Prescriptions: Continued aspirin [Adult Aspirin Regimen] 81 mg tablet,delayed release (DR/EC) 81 mg PO DAILY RF: 0 polyethylene glycol 3350 [Miralax] 17 gram/dose powder 17 gm PO PRN RF: 0 guaifenesin [Mucinex] 600 mg tablet extended release 12hr 600 mg PO BID RF: 0 glipizide 10 MG tablet 20 mg PO DAILY RF: 0 atenolol 25 MG tablet 25 mg PO DAILY RF: 0 omeprazole 20 MG capsule,delayed release(DR/EC) 20 mg PO DAILY RF: 0 insulin aspart U-100 [Novolog PenFill U-100 Insulin] 100 UNIT/1 ML cartridge 10 unit SQ QMEALS RF: 0 acarbose [Precose] 50 mg tablet 50 mg PO DIRECTED RF: 0 Spiriva with HandiHaler 1 PUFF capsule, w/inhalation device 1 puff Inhalation DAILY Qty: 1 RF: 0 albuterol sulfate [ProAir HFA] 90 mcg/actuation HFA aerosol inhaler 2 puff Inhalation PRN PRNRF: 0 Latuda 80 MG tablet 80 mg PO DAILY RF: 0 ipratropium-albuterol 3 ML solution for nebulization 3 ml UPD Q6H PRN PRNQty: 30 RF: 0 atorvastatin [Lipitor] 80 MG tablet 1 tab PO HS RF: 0 lisinopril 20 MG tablet 20 mg PO DAILY RF: 0 nicotine [Nicoderm CQ] 1 EACH patch 24 hour 21 mg Transdermal DAILY RF: 0 epinephrine [EpiPen 2-Cristian] 0.3 MG/0.3 ML auto-injector 1 ea UD PRN PRNRF: 0 prazosin 2 MG capsule 4 mg PO HS RF: 0 Lantus Solostar U-100 Insulin 100 unit/mL (3 mL) insulin pen 50 unit Sub-Q QAM RF: 0 acetaminophen [Tylenol Extra Strength] 500 mg tablet 500 mg PO Q6H PRN (Reason: pain) Qty: 20 RF: 0 Discontinued polyethylene glycol 3350 17 gram/dose powder 17 g PO ONCE Qty: 238 RF: 0 bisacodyl [Dulcolax (bisacodyl)] 5 mg tablet,delayed release (DR/EC) 5 mg PO ONCE Qty: 4 RF: 0 Discharge Instructions Additional Instructions: Findings: Your upper endoscopy showed mild inflammation of the stomach, which may cause some nausea. This may be related to taking aspirin. Increase your omeprazole to twice a day for two weeks to see if your symptoms improve. The colonoscopy showed diverticulosis. Make sure to take a fiber supplement such as Metamucil or Benefiber. Follow up: Plan for a routine screening colonoscopy in 10 years. Please call if you develop: fevers >101.5 Nausea or Vomiting Abdominal pain that is not transient DAY SURGERY UNIT POST COLONOSCOPY INSTRUCTIONS 1. Because there will be medication in your system for the next 24 hours, you may feel a little sleepy. Your coordination will be affected. Therefore: a. Do not drive or operate dangerous equipment for 24 hours. b. Do not drink alcohol beverages for 24 hours (not even beer). c. Plan to go home and rest for the day. 2. Generally there are no restrictions on your activity after a day or so has gone by, but you may feel a bit fatigued for a few days. 3 After you arrive home you may have a light meal and return to a normal diet as you can tolerate it without feeling sick to your stomach. 4. After surgery, you may feel pain or discomfort. This should be only transient, but if it persists please contact your doctor. 5. If there are any questions regarding the findings of your procedure, please feel free to contact your doctor. 6. If you are unable to contact your doctor with a problem, contact the hospital at [phone]. 7. Continue all your regular medications unless directed otherwise. I understand the above instructions and have no questions. Signature of Patient or Responsible Adult Escort Date/Time Name of Responsible Adult Escort Signature of Nurse Date/Time Activity:: Activity as Tolerated Diet:: As Tolerated Discharge Orders Discharge Orders: Discharge Order (Routine); Ordered 09/27/19 Ordered By: Lissette Soliman DS: Diagnosis Discharge Diagnosis (1) Mild chronic gastritis: Status: Acute (2) Diverticulosis: Status: Acute
--- NOTE | 2019-09-27 08:47 | BOWEL_PTH ---
PATIENT: Ken Yun JR LOC: [facility] U#:[id number] AGE/SX: 54/M ROOM: RE09/27/[address]: Lissette Soliman MD : [id number] BED: DIS: 09/27/2019 SPEC #: [id number] RECD: 09/27/19 11:26 STATUS: ISHAN REQ #: [id number] KENNY: 09/27/19 08:[address]: Lissette Soliman DEPT: Surgical Specimen RECD BY: Tamiko Blair ENTERED: 09/27/19 11:28 SP TYPE: Bowel OTHR DR: Rodriguez Sanford Tissues: 1 - BIOPSY BOWEL 2 - STOMACH BIOPSY Procedures: GROSS AND MICRO LEVEL 4 Comments: [id number]
--- NOTE | 2019-09-27 09:32 | W.PM.ENDDOP ---
Date of service: 09/27/19 Time of Service: 09:32 Endoscopy Report DATE OF PROCEDURE: 09/27/19 PRE-OP DIAGNOSIS: Nausea, constipation POST-OP DIAGNOSIS: other (Mild gastritis, diverticulosis) PROCEDURE: EGD with biopsies Colonoscopy SURGEON: Lissette Soliman ANESTHESIA: MAC DISPOSITION: same day INDICATIONS: This patient presented to the ER with nausea and constipation. CT unremarkable. No prior EGD or colonoscopy. PROCEDURE DESCRIPTION: The patient was placed in the left lateral position and propofol titrated to sedation. The endoscope was advanced into the esophagus under direct visualization. The scope was passed through the stomach and into the duodenum. There was mild duodenitis in the bulb, no ulceration noted. Biopsies were taken from the second portion of the duodenum to evaluate for celiac disease. The stomach itself showed mild antral gastritis, possibly related to aspirin use. The remainder of the somach was normal including on retroflexed view of the fundus and lesser curvature. Routine biopsies were taken from the gastric antrum. The GE junction was inspected and showed no significant stricture, inflammation, masses or Barretts. The scope was slowly withdrawn with no other esophageal lesions found. Digital rectal examination revealed no abnormalities. The scope was advanced to the cecum without difficulty. The ileocecal valve and appendiceal orifice were clearly identified. The prep was good. The scope was slowly withdrawn over the course of greater than 6 minutes with no abnormalities seen in the ascending, transverse, descending, sigmoid colon or rectum including on retroflexed view. Moderate divericular change was noted in the sigmoid region. The patient tolerated the procedure well and was stable to recovery. Plan for routine screening colonoscopy in 10 years or sooner if symptoms indicate. He was advised to increase his PPI to BID for a few weeks to see if this improves his nausea. Advised to take a fiber supplement as well.
[2019-09-27 09:36] VITALS: BP 118/66; PULSE 83; RESP 16; TEMP 36.6; O2SAT 97
[2019-09-27 10:01] VITALS: BP 138/69; PULSE 82; RESP 18; TEMP 36.8; O2SAT 95
== END 2019-09-27 10:07 | disposition home or self-care (01) ==
PROVIDERS: PCP Nurse Practitioner Family; Visit Provider Surgery
PROC: (CPT 43239; principal; 2019-09-27 08:15)
DX: R11.0 Nausea (principal); K59.00 Constipation, unspecified; K31.89 Other diseases of stomach and duodenum; K29.50 Unspecified chronic gastritis without bleeding
CPT/HCPCS: 43239; 45378; 88305; J2704

== ENCOUNTER 2020-01-13 17:46 | Emergency (ER) | payer MEDICAID, SELFPAY ==
[2020-01-13 17:54] VITALS: BP 167/80; PULSE 86; RESP 16; TEMP 36.1; O2SAT 97
--- NOTE | 2020-01-13 19:11 | ED.GENADUL_ITS ---
Discharge Plan Disposition Patient Disposition: HOME Condition: Stable Discharge Details Clinical Impression: Dental infection Primary Care Provider: Rodriguez Sanford ED Provider: Daquan Hollingsworth Home Meds and New Rx's Prescriptions: New prednisone 20 mg tablet 60 mg PO DAILY 4 Days Qty: 12 RF: 0 amoxicillin-pot clavulanate [Augmentin] 875-125 mg tablet 1 tab PO BID Qty: 14 RF: 0 Continued aspirin [Adult Aspirin Regimen] 81 mg tablet,delayed release (DR/EC) 81 mg PO DAILY RF: 0 polyethylene glycol 3350 [Miralax] 17 gram/dose powder 17 gm PO PRN RF: 0 guaifenesin [Mucinex] 600 mg tablet extended release 12hr 600 mg PO BID RF: 0 glipizide 10 MG tablet 20 mg PO DAILY RF: 0 atenolol 25 MG tablet 25 mg PO DAILY RF: 0 omeprazole 20 MG capsule,delayed release(DR/EC) 20 mg PO DAILY RF: 0 insulin aspart U-100 [Novolog PenFill U-100 Insulin] 100 UNIT/1 ML cartridge 10 unit SQ QMEALS RF: 0 acarbose [Precose] 50 mg tablet 50 mg PO DIRECTED RF: 0 Spiriva with HandiHaler 1 PUFF capsule, w/inhalation device 1 puff Inhalation DAILY Qty: 1 RF: 0 albuterol sulfate [ProAir HFA] 90 mcg/actuation HFA aerosol inhaler 2 puff Inhalation PRN PRNRF: 0 Latuda 80 MG tablet 80 mg PO DAILY RF: 0 ipratropium-albuterol 3 ML solution for nebulization 3 ml UPD Q6H PRN PRNQty: 30 RF: 0 atorvastatin [Lipitor] 80 MG tablet 1 tab PO HS RF: 0 lisinopril 20 MG tablet 20 mg PO DAILY RF: 0 nicotine [Nicoderm CQ] 1 EACH patch 24 hour 21 mg Transdermal DAILY RF: 0 epinephrine [EpiPen 2-Cristian] 0.3 MG/0.3 ML auto-injector 1 ea UD PRN PRNRF: 0 prazosin 2 MG capsule 4 mg PO HS RF: 0 Lantus Solostar U-100 Insulin 100 unit/mL (3 mL) insulin pen 50 unit Sub-Q QAM RF: 0 acetaminophen [Tylenol Extra Strength] 500 mg tablet 500 mg PO Q6H PRN (Reason: pain) Qty: 20 RF: 0 Discharge Instructions Instructions: Dental Abscess (ED) Additional Instructions: follow up with your dentist as soon as possible if you feel more ill, have fevers difficulty swallowing or breathing return to the emergency department Medical Decision Making 55 yo male comes in with right upper dental pain for several days and mild swelling, no fevers, dyspnea or difficulty swalling. He states he has chronic problems with his teeth due to poor dentition. On exam arrives hd stable breathing and swallowing normally. Has mild swelling over right lateral maxilla, no erythema, no swelling aroud orbita, eomi without pain. Has numerous dental erosions and pain with percussion to the right mid upper molar, suspect pulpitis vs abscess, no visible drainable collection on bedside, will start him on prednisone for the swelling and augmentin and return precautions given Differential Diagnosis Differential Diagnosis: dental infection, dental abscess HPI General Mode of arrival: ambulatory . Date/Time Provider Initiated Documentation: 01/13/20 19:04 . Limitations to Documentation: no limitations . Information obtained by: patient . History of Present Illness 55 year old M presents to the emergency department with the chief complaint of right upper tooth pain, described as moderate, No relieving factors improve symptom(s), No exacerbating factors reported . Patient did receive the following treatments prior to arrival, none Related Data Home Medications Medication Instructions Recorded Confirmed atenolol 25 mg PO DAILY 08/09/12 01/13/20 glipizide 20 mg PO DAILY 08/09/12 01/13/20 insulin aspart U-100 [Novolog 10 unit SQ QMEALS 08/09/12 01/13/20 PenFill U-100 Insulin] omeprazole 20 mg PO DAILY 08/09/12 01/13/20 Spiriva with HandiHaler 1 puff INHALATION DAILY #1 laura 07/08/13 01/13/20 atorvastatin [Lipitor] 1 tab PO HS 09/04/17 01/13/20 epinephrine [EpiPen 2-Cristian] 1 ea UD PRN PRN 09/04/17 01/13/20 lisinopril 20 mg PO DAILY 09/04/17 01/13/20 nicotine [Nicoderm CQ] 21 mg TRANSDERMAL DAILY 09/04/17 01/13/20 prazosin 4 mg PO HS 09/04/17 01/13/20 Latuda 80 mg PO DAILY 09/05/17 01/13/20 ipratropium-albuterol 3 ml UPD Q6H PRN PRN #30 vial 09/08/17 01/13/20 acarbose 50 mg tablet 50 mg PO DIRECTED tab 06/13/18 01/13/20 albuterol sulfate 90 mcg/actuation 2 puff INHALATION PRN PRN gm 06/13/18 01/13/20 aerosol inhaler aspirin 81 mg tablet,delayed 81 mg PO DAILY 06/13/18 10/03/19 release insulin glargine 100 unit/mL (3 50 unit SUB-Q QAM ml 08/27/18 01/13/20 mL) subcutaneous pen acetaminophen [Tylenol Extra 500 mg PO Q6H PRN #20 tab 06/09/19 01/13/20 Strength] guaifenesin 600 mg tablet, 600 mg PO BID 09/11/19 01/13/20 extended release 12 hr polyethylene glycol 3350 17 17 gm PO PRN gm 09/11/19 01/13/20 gram/dose oral powder amoxicillin-pot clavulanate 1 tab PO BID #14 tab 01/13/20 [Augmentin] prednisone 60 mg PO DAILY 4 Days #12 tab 01/13/20 Previous Rx's Medication Instructions Recorded Spiriva with HandiHaler 1 puff INHALATION DAILY #1 laura 07/08/13 ipratropium-albuterol 3 ml UPD Q6H PRN PRN #30 vial 09/08/17 acetaminophen [Tylenol Extra 500 mg PO Q6H PRN #20 tab 06/09/19 Strength] amoxicillin-pot clavulanate 1 tab PO BID #14 tab 01/13/20 [Augmentin] prednisone 60 mg PO DAILY 4 Days #12 tab 01/13/20 Allergies Allergy/AdvReac Type Severity Reaction Status Date / Time Fish Containing Products Allergy Severe Anaphylaxsi Verified 01/13/20 17:58 s tree nut [Tree Nut] Allergy Severe Anaphylaxsi Verified 01/13/20 17:58 s metformin Allergy Unknown Per office Verified 01/13/20 17:58 H&P venlafaxine HCl AdvReac Severe seizures Verified 01/13/20 17:58 [From Effexor] diclofenac [Diclofenac] AdvReac Intermediate Headache Verified 01/13/20 17:58 misoprostol AdvReac Intermediate Headache Verified 01/13/20 17:58 General Stated Complaint: DentalOral LINDY: 4 Review of Systems All systems reviewed & are unremarkable except as noted in HPI and below Constitutional Constitutional: Denies chills, Denies fever(s) and Denies weakness Cardiovascular Cardiovascular: Denies chest pain and Denies dyspnea Respiratory Respiratory: Denies cough and Denies dyspnea Gastrointestinal Gastrointestinal: Denies abdominal pain, Denies nausea and Denies vomiting Musculoskeletal Musculoskeletal: Denies joint swelling Neurologic Neurologic: Denies weakness Psychiatric Psychiatric: Denies depression [facility] Medical History (Updated 01/13/20 @ 19:15 by Daquan Hollingsworth MD) Abnormal EKG Abscess of perineum (12/02/15) Abscess, dental Anxiety (10/06/14) Asthma Bipolar 2 disorder Chronic back pain Constipation COPD (chronic obstructive pulmonary disease) Depression Diabetes mellitus Discharge planning issues DM2 (diabetes mellitus, type 2) Drug abuse, opioid type Dysphonia (10/06/14) GERD (gastroesophageal reflux disease) GERD with apnea (10/06/14) Glaucoma, left eye History of depression (09/20/12) Hyperlipidemia Hypertension Hypertension Lumbosacral radiculopathy Marijuana abuse Myopia, bilateral Obesity Obesity Onychomycosis Pneumonia Presbyopia PTSD (post-traumatic stress disorder) Radiculopathy of lumbar region Scrotal abscess (02/04/14) Sleep apnea Sleep disturbance Stage 2 moderate COPD by GOLD classification Tobacco abuse Tobacco use disorder (10/06/14) Surgical History Colonoscopy - MAC not completed due to incomplete prep Social History Smoking/Tobacco Use Status: Current every day Tobacco Type: cigarettes Quit status: considering quitting Alcohol Intake: never Drug use: Daily Substance use type: marijuana Details: pt states that he smokes marijuana daily Household members: family Housing: house current occupation: off work right now until july Current gender identity: male What is your relationship status?: Panel score (0-1 are the most socially isolated patients): 0 What type of physical activity do you participate in: none Do you feel safe at home: Yes Do you feel safe in your relationship?: Yes Exam Const General: no acute distress Orientation: alert HENMT Head: normal to inspection Ears: external ears normal General nose exam: external nose normal Mouth: moist mucous membranes Eyes General: appearance normal, both eyes and all related structures Neck Neck: normal visual inspection Resp Effort & Inspection: normal respiratory effort and able to speak in complete sentences Cardio Rate: regular rate Skin General skin exam: no rashes or lesions noted Neuro General: patient alert and patient oriented x3 Extrem General: normal to inspection Psych Mental Status: mental status grossly normal Course Vital Signs Vital signs: Vital Signs Temperature 36.1 C L 01/13/20 17:54 Pulse 86 01/13/20 17:54 Respiratory Rate 16 01/13/20 17:54 Blood Pressure 167/80 H 01/13/20 17:54 Pulse Oximetry 97 01/13/20 17:54 Temperature 36.1 C L 01/13/20 17:54 Temperature Source Skin 01/13/20 17:54 Pulse 86 01/13/20 17:54 Respiratory Rate 16 01/13/20 17:54 Respiratory Effort Non-Labored 01/13/20 17:54 Blood Pressure 167/80 H 01/13/20 17:54 Blood Pressure Position Sitting 01/13/20 17:54 Pulse Oximetry 97 01/13/20 17:54 Oxygen Delivery Method Nasal Cannula 01/13/20 17:54 Oxygen Flow Rate 2 01/13/20 17:54 Pain Level 8 01/13/20 18:01
[2020-01-13] MEDS: Amox. 875/Clav. 125, 2 TABS/BTL 1 TAB PO (19:15)
[2020-01-13] MEDS: predniSONE 20 MG TAB 60 MG PO (19:16)
[2020-01-13] MEDS: Amoxicillin 875/Clav. 125 TAB PO (19:16)
[2020-01-13 19:18] VITALS: BP 149/83; PULSE 77; RESP 16; TEMP 37.2; O2SAT 97
== END 2020-01-13 19:30 | disposition home or self-care (01) ==
PROVIDERS: Emergency Provider Emergency Medicine; PCP Nurse Practitioner Family
DX: R68.84 Jaw pain (principal); R22.0 Localized swelling, mass and lump, head; K04.7 Periapical abscess without sinus; J44.9 Chronic obstructive pulmonary disease, unspecified; F17.210 Nicotine dependence, cigarettes, uncomplicated; E11.9 Type 2 diabetes mellitus without complications; Z79.4 Long term (current) use of insulin; I10 Essential (primary) hypertension
CPT/HCPCS: 99283; J7512

== ENCOUNTER 2020-05-14 01:45 | Outpatient (CLI) | payer MEDICAID, SELFPAY ==
--- NOTE | 2020-05-14 13:52 | DI.CTLCSR_ITS ---
EXAM: CT CHEST LUNG CANCER SCREEN CLINICAL HISTORY: SCREENING FOR LUNG CA, CURRENT SMOKER, F17.210. TECHNIQUE: Imaging Protocol: Low Dose Technique CONTRAST MATERIAL: None COMPARISON: CT CT CHEST WO from 01/23/2019 FINDINGS: CHEST: LUNGS: Mild sub apical scarring in the right lung is unchanged.. In the right lower lobe there is mi ld subpleural infiltrate now evident in the lateral basal segment as well as some ground-glass infilt rate in the posterior basal segment of the right lower lobe, not previously present. No pleural effu emily. Also some infiltrate in the medial segment of the right middle lobe. In the opposite-left lung there is mild subpleural infiltrate in left lower lobe lateral basal segmen t more so than previous. There is unchanged infiltrate in superior segment of the left lower lobe. Pleural effusions. No new focal findings in trachea and mainstem bronchi. MEDIASTINUM: There is no new obvious hilar nor mediastinal adenopathy. Previously described nonspeci fic anterior left mediastinal lymph nodes are unchanged. CARDIAC: Size is normal. There is slight thickening of the anterior pericardium which is unchanged. There is no large pericardial effusioncaliber of the thoracic aorta is within normal limits. OTHER: OSSEOUS: No significant osseous lesions.. IMPRESSION: 1. Compared to the prior CT scan of the January 2019 there is some increasing infiltrate, this most e vident in the right lung base posterior basal segment where there is ground-glass infiltrate now evid ent. Other more subtle findings as described above. Recommend follow-up CT scan in 3 months. Also recommend testing for Covid-19 2. No new intrathoracic adenopathy. 3. Lung RADS Cat 4A - Suspicious: Findings for which additional diagnostic testing and/or tissue samp ling recommended. Alternatively repeat CT scan in 3 months. RADIATION DOSE DELIVERED: 94.93mGy.cm Total DLP DATA REPOSITORY: All CT scans at this facility are submitted to the National Radiology Data Registry (NRDR) Dose Index Registry (DIR) with the [employer] (A[employer]). RADIATION OPTIMIZATION: All CT scans at this facility use at least one of these dose optimization te chniques: automated exposure control; mA and/or kV adjustment per patient size (includes targeted exa ms where dose is matched to clinical indication); or iterative reconstruction.
== END 2020-05-14 02:05 ==
PROVIDERS: PCP Nurse Practitioner Family; Visit Provider Internal Medicine
DX: F17.210 Nicotine dependence, cigarettes, uncomplicated (principal); R91.8 Other nonspecific abnormal finding of lung field
CPT/HCPCS: 71271

== ENCOUNTER 2020-08-05 06:17 | Emergency (ER) | payer MEDICAID, SELFPAY ==
[2020-08-05 06:21] VITALS: BP 147/74; PULSE 86; RESP 16; TEMP 36.4; O2SAT 93
--- NOTE | 2020-08-05 06:29 | ED.GENADUL_ITS ---
Discharge Plan Disposition Patient Disposition: HOME Condition: Good Discharge Details Clinical Impression: Pain, dental Primary Care Provider: Rodriguez Sanford ED Provider: Cleve Mcclendon Home Meds and New Rx's Prescriptions: New amoxicillin-pot clavulanate [Augmentin] 875-125 mg tablet 1 tab PO BID 7 Days Qty: 14 RF: 0 Continued aspirin [Adult Aspirin Regimen] 81 mg tablet,delayed release (DR/EC) 81 mg PO DAILY RF: 0 polyethylene glycol 3350 [Miralax] 17 gram/dose powder 17 gm PO PRN RF: 0 glipizide 10 MG tablet 20 mg PO DAILY RF: 0 atenolol 25 MG tablet 25 mg PO DAILY RF: 0 omeprazole 20 MG capsule,delayed release(DR/EC) 20 mg PO DAILY RF: 0 insulin aspart U-100 [Novolog PenFill U-100 Insulin] 100 UNIT/1 ML cartridge 10 unit SQ QMEALS RF: 0 acarbose [Precose] 50 mg tablet 50 mg PO DIRECTED RF: 0 albuterol sulfate [ProAir HFA] 90 mcg/actuation HFA aerosol inhaler 2 puff Inhalation PRN PRNRF: 0 Latuda 80 MG tablet 80 mg PO DAILY RF: 0 ipratropium-albuterol 3 ML solution for nebulization 3 ml UPD Q6H PRN PRNQty: 30 RF: 0 atorvastatin [Lipitor] 80 MG tablet 1 tab PO HS RF: 0 lisinopril 20 MG tablet 20 mg PO DAILY RF: 0 nicotine [Nicoderm CQ] 1 EACH patch 24 hour 21 mg Transdermal DAILY RF: 0 epinephrine [EpiPen 2-Cristian] 0.3 MG/0.3 ML auto-injector 1 ea UD PRN PRNRF: 0 prazosin 2 MG capsule 4 mg PO HS RF: 0 Lantus Solostar U-100 Insulin 100 unit/mL (3 mL) insulin pen 50 unit Sub-Q QAM RF: 0 acetaminophen [Tylenol Extra Strength] 500 mg tablet 500 mg PO Q6H PRN (Reason: pain) Qty: 20 RF: 0 No Action Trelegy Ellipta 100-62.5-25 mcg blister with device 1 inh INHALATION DAILY RF: 0 gabapentin 800 mg tablet 800 mg PO QID RF: 0 Discharge Instructions Instructions: Toothache (ED) Additional Instructions: The block we administered should help improve your pain. Please take 800 mg of ibuprofen every 6 hours and 1000 mg of Tylenol every 6 hours to help with the inflammation and pain. These are the maximum doses. Please take the antibiotic as directed to help with the infection in your tooth. Please follow-up with your [facility] dentist. If you notice any worsening of your symptoms, or any new symptoms such as difficulty swallowing, difficulty breathing, vomiting, diarrhea, fever, chills, shortness of breath, chest pain, numbness, weakness, or fainting , please return immediately to the emergency department for reevaluat ion. Please follow up with your primary care provider as soon as possible for reassessment and reevaluation. As always, it was a pleasure participating in your medical care today. Referrals: Rodriguez Sanford NP [Primary Care Provider] - Medical Decision Making 55-year-old male with a past medical history of severe dental caries and tooth decay presents for dental pain in his lower teeth. Is been present for quite some time. He has been taking Tylenol and Motrin with no improvement as of late. He is scheduled to follow-up with [facility] for complete removal of all of his lower teeth in the future. He denies any fever or chills. No difficulty swallowing or drinking. No other complaints at this time. Exam demonstrates notable extreme lower tooth decay, but surprisingly no other significant abnormalities. No clinical evidence of osteomyelitis or ulcerative conditions of the gums. Dental block was performed from both the right and left lower areas, patient tolerated this well and had resolution of his pain. Will give Augmentin for home use. Recommend close follow-up with [facility]. Discussed red flags which to return. I have extensively reviewed the treatment plan and discharge instructions with the patient. I have addressed all patient concerns at this time. The patient was made aware of what symptoms to monitor for that would warrant a return to the emergency department. Discussed the plan with the patient, they demonstrate verbal understanding and agreement with our assessment and plan at this time. The documentation in this chart was dictated using Sensor[employer] dictation software. Please excuse any dictation errors. HPI General Date/Time Provider Initiated Documentation: 08/05/20 06:18 . HPI Narrative: 55-year-old male with a past medical history of severe dental caries and tooth decay presents for dental pain in his lower teeth. Is been present for quite some time. He has been taking Tylenol and Motrin with no improvement as of late. He is scheduled to follow-up with [facility] for complete removal of all of his lower teeth in the future. He denies any fever or chills. No difficulty swallowing or drinking. No other complaints at this time. Related Data Home Medications Medication Instructions Recorded Confirmed atenolol 25 mg PO DAILY 08/09/12 08/05/20 glipizide 20 mg PO DAILY 08/09/12 08/05/20 insulin aspart U-100 [Novolog 10 unit SQ QMEALS 08/09/12 08/05/20 PenFill U-100 Insulin] omeprazole 20 mg PO DAILY 08/09/12 08/05/20 atorvastatin [Lipitor] 1 tab PO HS 09/04/17 08/05/20 epinephrine [EpiPen 2-Cristian] 1 ea UD PRN PRN 09/04/17 08/05/20 lisinopril 20 mg PO DAILY 09/04/17 08/05/20 nicotine [Nicoderm CQ] 21 mg TRANSDERMAL DAILY 09/04/17 08/05/20 prazosin 4 mg PO HS 09/04/17 08/05/20 Latuda 80 mg PO DAILY 09/05/17 08/05/20 ipratropium-albuterol 3 ml UPD Q6H PRN PRN #30 vial 09/08/17 08/05/20 acarbose 50 mg tablet 50 mg PO DIRECTED tab 06/13/18 08/05/20 albuterol sulfate 90 mcg/actuation 2 puff INHALATION PRN PRN gm 06/13/18 08/05/20 aerosol inhaler aspirin 81 mg tablet,delayed 81 mg PO DAILY 06/13/18 08/05/20 release insulin glargine 100 unit/mL (3 50 unit SUB-Q QAM ml 08/27/18 08/05/20 mL) subcutaneous pen acetaminophen [Tylenol Extra 500 mg PO Q6H PRN #20 tab 06/09/19 08/05/20 Strength] polyethylene glycol 3350 17 17 gm PO PRN gm 09/11/19 08/05/20 gram/dose oral powder amoxicillin-pot clavulanate 1 tab PO BID 7 Days #14 tab 08/05/20 [Augmentin] [id number] 1 inh INHALATION DAILY 08/05/20 08/05/20 [Trelegy Ellipta] gabapentin 800 mg PO QID 08/05/20 08/05/20 Previous Rx's Medication Instructions Recorded ipratropium-albuterol 3 ml UPD Q6H PRN PRN #30 vial 09/08/17 acetaminophen [Tylenol Extra 500 mg PO Q6H PRN #20 tab 06/09/19 Strength] amoxicillin-pot clavulanate 1 tab PO BID 7 Days #14 tab 08/05/20 [Augmentin] Allergies Allergy/AdvReac Type Severity Reaction Status Date / Time Fish Containing Products Allergy Severe Anaphylaxsi Verified 08/05/20 06:26 s tree nut [Tree Nut] Allergy Severe Anaphylaxsi Verified 08/05/20 06:26 s metformin Allergy Unknown Per office Verified 08/05/20 06:26 H&P venlafaxine HCl AdvReac Severe seizures Verified 08/05/20 06:26 [From Effexor] diclofenac [Diclofenac] AdvReac Intermediate Headache Verified 08/05/20 06:26 misoprostol AdvReac Intermediate Headache Verified 08/05/20 06:26 General Stated Complaint: DentalOral LINDY: 4 Review of Systems All systems reviewed & are unremarkable except as noted in HPI and below PFSH Medical History Abnormal EKG Abscess of perineum (12/02/15) Abscess, dental Anxiety (10/06/14) Asthma Bipolar 2 disorder Chronic back pain Constipation COPD (chronic obstructive pulmonary disease) Depression Diabetes mellitus Discharge planning issues DM2 (diabetes mellitus, type 2) Drug abuse, opioid type Dysphonia (10/06/14) GERD (gastroesophageal reflux disease) GERD with apnea (10/06/14) Glaucoma, left eye History of depression (09/20/12) Hyperlipidemia Hypertension Hypertension Lumbosacral radiculopathy Marijuana abuse Myopia, bilateral Obesity Obesity Onychomycosis Pneumonia Presbyopia PTSD (post-traumatic stress disorder) Radiculopathy of lumbar region Scrotal abscess (02/04/14) Sleep apnea Sleep disturbance Stage 2 moderate COPD by GOLD classification Tobacco abuse Tobacco use disorder (10/06/14) Surgical History Colonoscopy - MAC not completed due to incomplete prep Social History Smoking/Tobacco Use Status: Current every day Tobacco Type: cigarettes Quit status: considering quitting Smoking risk assessment performed?: Yes Alcohol Intake: never Drug use: Daily Substance use type: marijuana Details: pt states that he smokes marijuana daily Household members: family Housing: house current occupation: off work right now until july Current gender identity: male What is your relationship status?: Panel score (0-1 are the most socially isolated patients): 0 What type of physical activity do you participate in: none Do you feel safe at home: Yes Do you feel safe in your relationship?: Yes Exam Narrative Exam Narrative: 1.Const: Well-nourished, Well-developed, appearing stated age 2.Eyes: PERRL, no conjunctival injection, and symmetrical lids. 3.ENT: Atraumatic external nose and ears. Moist MM. Neck: Symmetric, trachea midline, No thyromegaly. Extensive lower jaw tooth decay amongst all of the patient's teeth. No evidence of acute necrotizing ulcerative gingivitis. No evidence of periapical abscesses. No evidence of Ludewig's angina. 4.CVS: +S1/S2, No murmurs or gallops. Peripheral pulses 2+ and equal in all extremities. Brisk capillary refill in all extremities. 5.RESP: Unlabored respiratory effort. Clear to auscultation bilaterally. No wheezes rales or rhonchi 6.GI: Soft, Nontender/Nondistended, No hepatosplenomegaly. No guarding or rebound. 7.MSK: Normocephalic/Atraumatic, Extremities w/o deformity or ttp No cyanosis or clubbing, Normal movement of all extremities 8.Skin: Warm, Dry. No rashes or lesions. 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 Sensation grossly intact, no focal neurologic deficits. 10.Psych: (AAO) x3. Appropriate mood and affect Course Vital Signs Vital signs: Vital Signs Temperature 36.4 C L 08/05/20 06:21 Pulse 86 08/05/20 06:21 Respiratory Rate 16 08/05/20 06:21 Blood Pressure 147/74 H 08/05/20 06:21 Pulse Oximetry 93 08/05/20 06:21 Temperature 36.4 C L 04/21/21 06:21 Pulse 86 08/05/20 06:21 Respiratory Rate 16 08/05/20 06:21 Blood Pressure 147/74 H 08/05/20 06:21 Pulse Oximetry 93 08/05/20 06:21 Oxygen Delivery Method Room Air 08/05/20 06:21 Oxygen Flow Rate 0 08/05/20 06:21 Pain Level 9 08/05/20 06:21 Procedures Nerve Block Nerve Block 1: Time out performed: Yes Local Anesthetic: Bupivicaine 0.5% Amount of anesthesia used (mL): 5 Side: left Intraoral Nerve Block: inferior alveolar Procedure Successful: Yes Patient Tolerated Procedure: well Nerve Block 2: Time out performed: Yes Local Anesthetic: Bupivicaine 0.5% Amount of anesthesia used (mL): 5 Side: right Intraoral Nerve Block: inferior alveolar Procedure Successful: Yes Patient Tolerated Procedure: well Complications: none
[2020-08-05] MEDS: Amox. 875/Clav. 125, 2 TABS/BTL 1 TAB PO (06:37)
== END 2020-08-05 06:37 | disposition home or self-care (01) ==
PROVIDERS: Emergency Provider Student in an Organized Health Care Education/Training Program; PCP Nurse Practitioner Family
DX: K02.9 Dental caries, unspecified (principal)

== ENCOUNTER 2020-09-03 18:39 | Emergency (ER) | payer MEDICAID, SELFPAY ==
[2020-09-03 19:26] VITALS: BP 181/76; PULSE 101; RESP 17; TEMP 35.9; O2SAT 96
--- NOTE | 2020-09-03 19:28 | ED.GENADUL_ITS ---
Discharge Plan Disposition Patient Disposition: HOME Condition: Stable Discharge Details Clinical Impression: Pain, dental Primary Care Provider: Rodriguez Sanford ED Provider: Altagracia David Home Meds and New Rx's Prescriptions: New clindamycin HCl 300 mg capsule 300 mg PO BID 7 Days Qty: 14 RF: 0 No Action aspirin [Adult Aspirin Regimen] 81 mg tablet,delayed release (DR/EC) 81 mg PO DAILY RF: 0 polyethylene glycol 3350 [Miralax] 17 gram/dose powder 17 gm PO PRN RF: 0 glipizide 10 MG tablet 20 mg PO DAILY RF: 0 atenolol 25 MG tablet 25 mg PO DAILY RF: 0 omeprazole 20 MG capsule,delayed release(DR/EC) 20 mg PO DAILY RF: 0 insulin aspart U-100 [Novolog PenFill U-100 Insulin] 100 UNIT/1 ML cartridge 10 unit SQ QMEALS RF: 0 acarbose [Precose] 50 mg tablet 50 mg PO DIRECTED RF: 0 albuterol sulfate [ProAir HFA] 90 mcg/actuation HFA aerosol inhaler 2 puff Inhalation PRN PRNRF: 0 Latuda 80 MG tablet 80 mg PO DAILY RF: 0 ipratropium-albuterol 3 ML solution for nebulization 3 ml UPD Q6H PRN PRNQty: 30 RF: 0 Trelegy Ellipta 100-62.5-25 mcg blister with device 1 inh INHALATION DAILY RF: 0 gabapentin 800 mg tablet 800 mg PO QID RF: 0 atorvastatin [Lipitor] 80 MG tablet 1 tab PO HS RF: 0 lisinopril 20 MG tablet 20 mg PO DAILY RF: 0 nicotine [Nicoderm CQ] 1 EACH patch 24 hour 21 mg Transdermal DAILY RF: 0 epinephrine [EpiPen 2-Cristian] 0.3 MG/0.3 ML auto-injector 1 ea UD PRN PRNRF: 0 prazosin 2 MG capsule 4 mg PO HS RF: 0 Lantus Solostar U-100 Insulin 100 unit/mL (3 mL) insulin pen 50 unit Sub-Q QAM RF: 0 acetaminophen [Tylenol Extra Strength] 500 mg tablet 500 mg PO Q6H PRN (Reason: pain) Qty: 20 RF: 0 Discharge Instructions Instructions: Toothache (ED) Additional Instructions: Follow up with primary care provider in 3-5 days. Return to ED sooner if any worsening or concerns. Increase oral fluids. Please take Tylenol or Ibuprofen with food every 4-6 hours as needed for pain and swelling. Take antibiotics as directed. You do need to follow-up with dentist. Referrals: Rodriguez Sanford NP [Primary Care Provider] - Discharge Data Discharge Date/Time-TO BE ENTERED AT DEPARTURE: 09/03/20 19:35 Medical Decision Making 55-year-old male presents to the ER with chief complaint of dental pain which began approximately 3 days ago. Patient has chronic poor dentition and eroded lower teeth. He states that he does have an upcoming follow-up appointment with dentist. He was recently treated for dental pain and tooth infection approximately 1 month ago. There is no clearly identified abscess or any drainable area. He denies any fever chills or trouble swallowing. He is a daily smoker. Has been taking Tylenol and ibuprofen at home. Patient was given a prescription and clindamycin here in the department. He has been on Augmentin x2 recently in the last few months. Patient was given dental resources and instructed to follow-up with dentist as previously scheduled. Instructed on home care and strict return instructions, verbalized understanding. HPI General Mode of arrival: ambulatory . Date/Time Provider Initiated Documentation: 09/03/20 18:49 . Limitations to Documentation: no limitations . Information obtained by: patient . HPI Narrative: 55-year-old male presents to the ER with chief complaint of dental pain which began approximately 3 days ago. Patient has chronic poor dentition and eroded lower teeth. He states that he does have an upcoming follow-up appointment with dentist. He was recently treated for dental pain and tooth infection approximately 1 month ago. There is no clearly identified abscess or any drainable area. He denies any fever chills or trouble swallowing. He is a daily smoker. Has been taking Tylenol and ibuprofen at home. Related Data Home Medications Medication Instructions Recorded Confirmed atenolol 25 mg PO DAILY 08/09/12 09/03/20 glipizide 20 mg PO DAILY 08/09/12 09/03/20 insulin aspart U-100 [Novolog 10 unit SQ QMEALS 08/09/12 09/03/20 PenFill U-100 Insulin] omeprazole 20 mg PO DAILY 08/09/12 09/03/20 atorvastatin [Lipitor] 1 tab PO HS 09/04/17 09/03/20 epinephrine [EpiPen 2-Cristian] 1 ea UD PRN PRN 09/04/17 09/03/20 lisinopril 20 mg PO DAILY 09/04/17 09/03/20 nicotine [Nicoderm CQ] 21 mg TRANSDERMAL DAILY 09/04/17 09/03/20 prazosin 4 mg PO HS 09/04/17 09/03/20 Latuda 80 mg PO DAILY 09/05/17 09/03/20 ipratropium-albuterol 3 ml UPD Q6H PRN PRN #30 vial 09/08/17 09/03/20 acarbose 50 mg tablet 50 mg PO DIRECTED tab 06/13/18 09/03/20 albuterol sulfate 90 mcg/actuation 2 puff INHALATION PRN PRN gm 06/13/18 09/03/20 aerosol inhaler aspirin 81 mg tablet,delayed 81 mg PO DAILY 06/13/18 09/03/20 release insulin glargine 100 unit/mL (3 50 unit SUB-Q QAM ml 08/27/18 09/03/20 mL) subcutaneous pen acetaminophen [Tylenol Extra 500 mg PO Q6H PRN #20 tab 06/09/19 09/03/20 Strength] polyethylene glycol 3350 17 17 gm PO PRN gm 09/11/19 09/03/20 gram/dose oral powder [id number] 1 inh INHALATION DAILY 08/05/20 09/03/20 [Trelegy Ellipta] gabapentin 800 mg PO QID 08/05/20 09/03/20 clindamycin HCl 300 mg PO BID 7 Days #14 cap 09/03/20 Previous Rx's Medication Instructions Recorded ipratropium-albuterol 3 ml UPD Q6H PRN PRN #30 vial 09/08/17 acetaminophen [Tylenol Extra 500 mg PO Q6H PRN #20 tab 06/09/19 Strength] clindamycin HCl 300 mg PO BID 7 Days #14 cap 09/03/20 Allergies Allergy/AdvReac Type Severity Reaction Status Date / Time Fish Containing Products Allergy Severe Anaphylaxsi Verified 08/05/20 06:26 s tree nut [Tree Nut] Allergy Severe Anaphylaxsi Verified 08/05/20 06:26 s metformin Allergy Unknown Per office Verified 08/05/20 06:26 H&P venlafaxine HCl AdvReac Severe seizures Verified 08/05/20 06:26 [From Effexor] diclofenac [Diclofenac] AdvReac Intermediate Headache Verified 08/05/20 06:26 misoprostol AdvReac Intermediate Headache Verified 08/05/20 06:26 General Stated Complaint: DentalOral LINDY: 4 Review of Systems All systems reviewed & are unremarkable except as noted in HPI and below ENT Ears, Nose, Mouth, and Throat: Denies change in voice and Reports dental pain [facility] Medical History Abnormal EKG Abscess of perineum (12/02/15) Abscess, dental Anxiety (10/06/14) Asthma Bipolar 2 disorder Chronic back pain Constipation COPD (chronic obstructive pulmonary disease) Depression Diabetes mellitus Discharge planning issues DM2 (diabetes mellitus, type 2) Drug abuse, opioid type Dysphonia (10/06/14) GERD (gastroesophageal reflux disease) GERD with apnea (10/06/14) Glaucoma, left eye History of depression (09/20/12) Hyperlipidemia Hypertension Hypertension Lumbosacral radiculopathy Marijuana abuse Myopia, bilateral Obesity Obesity Onychomycosis Pneumonia Presbyopia PTSD (post-traumatic stress disorder) Radiculopathy of lumbar region Scrotal abscess (02/04/14) Sleep apnea Sleep disturbance Stage 2 moderate COPD by GOLD classification Tobacco abuse Tobacco use disorder (10/06/14) Surgical History Colonoscopy - MAC not completed due to incomplete prep Social History Smoking/Tobacco Use Status: Current every day Tobacco Type: cigarettes Quit status: considering quitting Smoking risk assessment performed?: Yes Alcohol Intake: never Drug use: Daily Substance use type: marijuana Details: pt states that he smokes marijuana daily Household members: family Housing: house current occupation: off work right now until july Current gender identity: male What is your relationship status?: Panel score (0-1 are the most socially isolated patients): 0 What type of physical activity do you participate in: none Do you feel safe at home: Yes Do you feel safe in your relationship?: Yes Exam Narrative Exam Narrative: Constitutional: Alert and oriented x3. Appears stated age. Normal body habitus. Head: Normocephalic, no trauma. Eyes: Pupils PERRLA, Red reflex noted, EOM's intact. Eyelids symmetrical without lesions, discharge, or swelling. ENT: Bilateral TM's WNL, External ear normal to inspection, no mastoid TTP, swelling, or erythema, Nasal turbinates WNL, no nasal discharge. Posterior pharynx WNL, no exudate. See dental exam below. Chest: RRR, Normal S1, S2, distal pulses intact. Resp: Lungs clear to auscultation bilaterally, no wheezes, rales, or rhonchi. Musculoskeletal: Normal gait, 5/5 strength to all four extremities. Skin: No suspicious rashes or lesions. Capillary refill less than 2 sec. Neurologic: Cranial nerves II-XII intact. Alert and oriented x 3. DTR's intact. Hematologic/Lymphatic: No ecchymosis, no lymphadenopathy. HENMT Teeth and gingiva: gingiva abnormal diffusely erythematous and tender; without any purulent discharge and poor dentition (Multiple eroded teeth in upper and lower) Course Vital Signs Vital signs: Vital Signs Temperature 35.9 C L 09/03/20 19:26 Pulse 101 H 09/03/20 19:26 Respiratory Rate 17 09/03/20 19:26 Blood Pressure 181/76 H 09/03/20 19:26 Pulse Oximetry 96 09/03/20 19:26 Temperature 35.9 C L 09/03/20 19:26 Temperature Source Temporal Artery Scan 09/03/20 19:26 Pulse 101 H 09/03/20 19:26 Respiratory Rate 17 09/03/20 19:26 Blood Pressure 181/76 H 09/03/20 19:26 Pulse Oximetry 96 09/03/20 19:26 Oxygen Delivery Method Room Air 09/03/20 19:26 Oxygen Flow Rate 0 09/03/20 19:26
[2020-09-03] MEDS: Benzocaine 20% Gel 30 GM JAR MM (19:33)
[2020-09-03] MEDS: Clindamycin 300 MG CAP PO (19:33)
[2020-09-03] MEDS: Clindamycin 150 MG CAP, 12 CAPS/BTL 450 MG PO (19:34)
== END 2020-09-03 19:35 | disposition home or self-care (01) ==
PROVIDERS: Emergency Provider Registered Nurse Emergency; PCP Nurse Practitioner Family
DX: K08.89 Other specified disorders of teeth and supporting structures (principal)
CPT/HCPCS: 99283

== ENCOUNTER 2020-09-30 11:42 | Emergency (ER) | payer MEDICAID, SELFPAY ==
[2020-09-30] VITALS (55 sets, daily range): BP systolic 109–156; BP diastolic 46–98; PULSE 58–96; RESP 11–24; TEMP 36.4–36.6; O2SAT 91–96
--- NOTE | 2020-09-30 11:30 | RT.EKG_ITS ---
APPROVED REPORT Exam: Resting ECG Reason for Exam: chest pain Patient Location: E HR:62 bpm ECG Measurements Heart Rate 62 AXIS MS 159 P 63 QRSd 86 QRS 16 QT 397 T 41 QTc 403 Conclusion Sinus rhythm...normal P axis, V-rate 60- 99 Consider anterosepta q waves
--- NOTE | 2020-09-30 12:01 | ED.GENADUL_ITS ---
Discharge Plan Disposition Patient Disposition: HOME Condition: Improving Discharge Details Clinical Impression: Left upper quadrant abdominal pain, Chest pain Primary Care Provider: Rodriguez Sanford ED Provider: Araceli Lagos Home Meds and New Rx's Prescriptions: New sucralfate [Carafate] 1 gram tablet 1 gm PO QACHS Qty: 14 RF: 0 Continued aspirin [Adult Aspirin Regimen] 81 mg tablet,delayed release (DR/EC) 81 mg PO DAILY RF: 0 polyethylene glycol 3350 [Miralax] 17 gram/dose powder 17 gm PO BID PRNRF: 0 glipizide 10 MG tablet 20 mg PO DAILY RF: 0 atenolol 25 MG tablet 25 mg PO DAILY RF: 0 omeprazole 20 MG capsule,delayed release(DR/EC) 40 mg PO DAILY RF: 0 insulin aspart U-100 [Novolog PenFill U-100 Insulin] 100 UNIT/1 ML cartridge 20 unit SQ TID RF: 0 acarbose [Precose] 50 mg tablet 50 - 100 mg PO DIRECTED RF: 0 albuterol sulfate [ProAir HFA] 90 mcg/actuation HFA aerosol inhaler 2 puff Inhalation PRN PRNRF: 0 Latuda 80 MG tablet 80 mg PO DAILY RF: 0 ipratropium-albuterol 3 ML solution for nebulization 3 ml UPD Q6H PRN PRNQty: 30 RF: 0 Trelegy Ellipta 100-62.5-25 mcg blister with device 1 inh INHALATION DAILY RF: 0 gabapentin 800 mg tablet 800 mg PO QID RF: 0 psyllium husk [Metamucil] 0.4 gram Capsule PO TID RF: 0 albuterol sulfate 2.5 mg /3 mL (0.083 %) Solution For Nebulization 2.5 mg inhalation Q4H PRNRF: 0 atorvastatin [Lipitor] 80 MG tablet 1 tab PO HS RF: 0 lisinopril 20 MG tablet 20 mg PO DAILY RF: 0 nicotine [Nicoderm CQ] 1 EACH patch 24 hour 21 mg Transdermal DAILY RF: 0 epinephrine [EpiPen 2-Cristian] 0.3 MG/0.3 ML auto-injector 1 ea UD PRN PRNRF: 0 prazosin 2 MG capsule 4 mg PO HS RF: 0 Lantus Solostar U-100 Insulin 100 unit/mL (3 mL) insulin pen 100 unit Sub-Q QAM RF: 0 acetaminophen [Tylenol Extra Strength] 500 mg tablet 500 mg PO Q6H PRN (Reason: pain) Qty: 20 RF: 0 No Action clonidine HCl 0.1 mg tablet 0.1 mg PO TID PRNRF: 0 trazodone 100 mg tablet 200 - 300 mg PO QHS RF: 0 guaifenesin [Mucinex] 600 mg Tablet Extended Release 12hr 600 mg PO BID RF: 0 buspirone 15 mg tablet 15 mg PO BID RF: 0 melatonin 10 mg capsule 10 mg PO HS RF: 0 hydroxyzine HCl 50 mg tablet 50 mg PO TID PRNRF: 0 Discharge Instructions Instructions: Chest Pain (ED), Abdominal Pain (ED) Additional Instructions: Decrease aspirin use to once a day. May increase omeprazole to 20 mg twice daily for the next 1 week's time, then resume 20 mg once daily. Your prescription has been sent electronically to your pharmacy. Call the pharmacy to make sure your prescription is ready before pickup. Take the prescription as directed. May use hydrocortisone cream 3 times a day for 5 days to the top of both feet. You will receive a call from the radiology department for scheduling for an outpatient stress test. Call the general surgery office to schedule a follow-up appointment for reevaluation and for consideration for upper endoscopy. Return immediately to the emergency department if you develop any worsening or new concerning symptoms. Referrals: Fauzia Botello DO [OSTEOPATHIC DOCTOR] - Discharge Data Discharge Date/Time-TO BE ENTERED AT DEPARTURE: 09/30/20 18:50 Discharge Physician: Araceli Lagos Medical Decision Making <Dillon Juan MD - Last Filed: 09/30/20 15:24> 55-year-old male presents from home complaining of 3 months of intermittent episodes of left-sided chest pain. Pressure minutes at a time. He started taking aspirin 325 mg 4-6 times daily over the past few months to try and help with the discomfort but it has been worsening. Today he felt increased and reports for evaluation. Patient continues to smoke, he has diabetes, he has longstanding COPD. Patient arrives to the ER afebrile, interactive, with normal oxygenation. His exam is most notable for left upper quadrant tenderness on palpation. Differential diagnosis includes acute coronary syndrome, GERD, occult pneumonia. Patient IV access established, screening labs obtained, he had taken 1/2 tablet of his father's nitroglycerin which gave him a headache and minimally improved or change the discomfort. He was given a GI cocktail with some improvement. Also, the patient noted areas of pruritus/dermatitis on the dorsum of both feet. We will trial cortisone cream for this which he was administered in the ER. Patient's laboratories noted a negative troponin, reassuring chemistries, unremarkable CBC. Repeat troponin pending. Chest x-ray unremarkable. He will be signed out to Dr. Lagos pending repeat troponin. Please see her note regarding final impression and disposition. On a separate note, the patient has failed to enroll previously in pulmonary rehab. He was seen by our respiratory therapist to ensure follow-up. <Araceli Lagos, - Last Filed: 10/01/20 17:30> 1530 -- please see Dr. Juan's note for initial presentation, exam and plan. Case endorsed to follow-up on repeat troponin and EKG. Repeat EKG unchanged. Repeat troponin negative. Complained of patient reassessed by me and complained of return of left-sided chest squeezing. It appears to be in the location of the left lateral ribs/left upper quadrant. His lipase was within normal limits. He denies any aggravating or alleviating factors. His oxygen saturation is low 90s but he denies any cough or shortness of breath. Will add a D-dimer and give a dose of Pepcid and Carafate and reassess. 1719 -- D-dimer minimally elevated above age-adjusted cut off. Patient complaining of continued pain. Will give a dose of morphine and refer for CT chest. 1814 -- CT chest negative for PE. Patient reassessed and he states he feels better and would like to go home. An order for an outpatient stress test placed. Patient also placed on surgery list for follow-up for consideration for upper endoscopy. Advised to follow up with the primary care doctor for re-evaluation. Usual and customary return precautions given prior to discharge. Medical Records Medical records reviewed: Yes I reviewed the patient's medical records. Lab Data Lab results reviewed: Yes I reviewed the patient's lab results. Labs: Laboratory Tests Range/Units 09/30/20 09/30/20 09/30/20 12:12 12:12 12:12 WBC (4.4-10.8) 10^3/uL 8.52 RBC (4.36-5.78) 10^6/uL 4.64 Hgb (13.5-17.5) g/dL 14.1 Hct (40.0-50.0) % 41.7 MCV (80-95) fL 89.9 MCH (27.0-33.0) pg 30.4 MCHC (32.0-36.0) % 33.8 RDW (11.8-14.1) % 12.8 Plt Count (130-400) 10^3/uL 184 MPV (8.0-11.0) fL 9.9 Immature Gran % 0.2 Neutrophils % 66.9 Lymphocytes % 24.8 Monocytes % 5.6 Eosinophils % 2.1 Basophils % 0.4 Nucleated RBC % % 0 Absolute Neutrophils (1.2-6.7) 10^3/uL 5.70 Absolute Lymphocytes (1.2-3.4) 10^3/uL 2.11 Absolute Monocytes (0.1-0.8) 10^3/uL 0.48 Absolute Eosinophils (0.0-0.7) 10^3/uL 0.18 Absolute Basophils (0.0-0.2) 10^3/uL 0.03 PT (9.3-11.0) sec 10.6 INR (0.9-1.1) 1.1 APTT (21.0-27.5) sec 23.9 D-Dimer (<500) ng/mlFEU Sodium (136-145) mmol/L 140 Potassium (3.5-5.1) mmol/L 4.3 Chloride (98-107) mmol/L 104 Carbon Dioxide (21.0-32.0) mmol/L 27.9 Anion Gap (3-11) mmol/L 8.1 BUN (7-18) mg/dL 13 Creatinine (0.70-1.30) mg/dL 1.0 Estimated GFR/1.73 m2 (mL/min/1.73m2) >= 60.00 Glucose (74-106) mg/dL 129 H Calcium (8.5-10.1) mg/dL 8.7 Magnesium (1.8-2.4) mg/dL 1.8 Total Bilirubin (0.2-1.0) mg/dL 0.4 AST (15-37) U/L 21 ALT (16-63) U/L 51 Alkaline Phosphatase (46-116) U/L 88 Troponin I (<0.06) ng/mL < 0.05 NT-Pro-B Natriuret Pep (<300) pg/mL 27 Total Protein (6.4-8.2) g/dL 6.9 Albumin (3.4-5.0) g/dL 3.7 Lipase (73-393) U/L Range/Units 09/30/20 09/30/20 09/30/20 12:12 12:12 16:21 WBC (4.4-10.8) 10^3/uL RBC (4.36-5.78) 10^6/uL Hgb (13.5-17.5) g/dL Hct (40.0-50.0) % MCV (80-95) fL MCH (27.0-33.0) pg MCHC (32.0-36.0) % RDW (11.8-14.1) % Plt Count (130-400) 10^3/uL MPV (8.0-11.0) fL Immature Gran % Neutrophils % Lymphocytes % Monocytes % Eosinophils % Basophils % Nucleated RBC % % Absolute Neutrophils (1.2-6.7) 10^3/uL Absolute Lymphocytes (1.2-3.4) 10^3/uL Absolute Monocytes (0.1-0.8) 10^3/uL Absolute Eosinophils (0.0-0.7) 10^3/uL Absolute Basophils (0.0-0.2) 10^3/uL PT (9.3-11.0) sec INR (0.9-1.1) APTT (21.0-27.5) sec D-Dimer (<500) ng/mlFEU 672 H Sodium (136-145) mmol/L Potassium (3.5-5.1) mmol/L Chloride (98-107) mmol/L Carbon Dioxide (21.0-32.0) mmol/L Anion Gap (3-11) mmol/L BUN (7-18) mg/dL Creatinine (0.70-1.30) mg/dL Estimated GFR/1.73 m2 (mL/min/1.73m2) Glucose (74-106) mg/dL Calcium (8.5-10.1) mg/dL Magnesium (1.8-2.4) mg/dL Total Bilirubin (0.2-1.0) mg/dL AST (15-37) U/L ALT (16-63) U/L Alkaline Phosphatase (46-116) U/L Troponin I (<0.06) ng/mL < 0.05 NT-Pro-B Natriuret Pep (<300) pg/mL Total Protein (6.4-8.2) g/dL Albumin (3.4-5.0) g/dL Lipase (73-393) U/L 60 ECG Data Attestation: I personally reviewed and interpreted this ECG (s) as follows: Interpretation: #1 -- rate of 62, sinus, no stemi. #2 -- rate of 81, sinus, no stemi. HPI <Dillon Juan MD - Last Filed: 09/30/20 15:24> General Mode of arrival: ambulatory . Date/Time Provider Initiated Documentation: 09/30/20 11:42 . Limitations to Documentation: no limitations . Information obtained by: patient . History of Present Illness 55 year old M presents to the emergency department with the chief complaint of Left anterior chest pain intermittently for 3 months., described as moderate and similar to prior episodes, Quality is described as dull, and is localized to the chest and left. Patient reports no radiation. Patient started experiencing this month(s) and it has been intermittent. No relieving factors improve symp venita(s), Patient notes cough. Patient did receive the following treatments prior to arrival, other (Took 1/2 tablet of his father's nitroglycerin) Related Data Home Medications Medication Instructions Recorded Confirmed atenolol 25 mg PO DAILY 08/09/12 09/30/20 glipizide 20 mg PO DAILY 08/09/12 09/30/20 insulin aspart U-100 [Novolog 20 unit SQ TID 08/09/12 09/30/20 PenFill U-100 Insulin] omeprazole 40 mg PO DAILY 08/09/12 09/30/20 atorvastatin [Lipitor] 1 tab PO HS 09/04/17 09/30/20 epinephrine [EpiPen 2-Cristian] 1 ea UD PRN PRN 09/04/17 09/30/20 lisinopril 20 mg PO DAILY 09/04/17 09/30/20 nicotine [Nicoderm CQ] 21 mg TRANSDERMAL DAILY 09/04/17 09/30/20 prazosin 4 mg PO HS 09/04/17 09/30/20 Latuda 80 mg PO DAILY 09/05/17 09/30/20 ipratropium-albuterol 3 ml UPD Q6H PRN PRN #30 vial 09/08/17 09/03/20 acarbose 50 mg tablet 50 - 100 mg PO DIRECTED tab 06/13/18 09/30/20 albuterol sulfate 90 mcg/actuation 2 puff INHALATION PRN PRN gm 06/13/18 09/30/20 aerosol inhaler aspirin 81 mg tablet,delayed 81 mg PO DAILY 06/13/18 09/30/20 release insulin glargine 100 unit/mL (3 100 unit SUB-Q QAM ml 08/27/18 09/30/20 mL) subcutaneous pen acetaminophen [Tylenol Extra 500 mg PO Q6H PRN #20 tab 06/09/19 09/30/20 Strength] polyethylene glycol 3350 17 17 gm PO BID PRN gm 09/11/19 09/30/20 gram/dose oral powder Trelegy Ellipta 1 inh INHALATION DAILY 08/05/20 09/30/20 gabapentin 800 mg PO QID 08/05/20 09/30/20 albuterol sulfate 2.5 mg INHALATION Q4H PRN 09/30/20 09/30/20 buspirone 15 mg PO BID 09/30/20 09/30/20 clonidine HCl 0.1 mg PO TID PRN 09/30/20 09/30/20 guaifenesin [Mucinex] 600 mg PO BID 09/30/20 09/30/20 hydroxyzine HCl 50 mg PO TID PRN 09/30/20 09/30/20 melatonin 10 mg PO HS 09/30/20 09/30/20 psyllium husk [Metamucil] g PO TID 09/30/20 sucralfate [Carafate] 1 gm PO QACHS #14 tab 09/30/20 trazodone 200 - 300 mg PO QHS 09/30/20 09/30/20 Previous Rx's Medication Instructions Recorded ipratropium-albuterol 3 ml UPD Q6H PRN PRN #30 vial 09/08/17 acetaminophen [Tylenol Extra 500 mg PO Q6H PRN #20 tab 06/09/19 Strength] sucralfate [Carafate] 1 gm PO QACHS #14 tab 09/30/20 Allergies Allergy/AdvReac Type Severity Reaction Status Date / Time Fish Containing Products Allergy Severe Anaphylaxsi Verified 09/30/20 11:58 s tree nut [Tree Nut] Allergy Severe Anaphylaxsi Verified 09/30/20 11:58 s metformin Allergy Unknown Per office Verified 09/30/20 11:58 H&P venlafaxine HCl AdvReac Severe seizures Verified 09/30/20 11:58 [From Effexor] diclofenac [Diclofenac] AdvReac Intermediate Headache Verified 09/30/20 11:58 misoprostol AdvReac Intermediate Headache Verified 09/30/20 11:58 General Stated Complaint: Chest Pain LINDY: 2 Review of Systems <Dillon Juan MD - Last Filed: 09/30/20 15:24> Narrative: Has been taking 6 325 mg aspirins daily for approximately 3 months to help with pain. No bloody stool. Chronic cough with production of sputum that is unchanged. No leg pain or swelling. He will note itching rash on his feet for at least 1 month. 8 systems reviewed and otherwise negative. PFSH <Dillon Juan MD - Last Filed: 09/30/20 15:24> Medical History Abnormal EKG Abscess of perineum (12/02/15) Abscess, dental Anxiety (10/06/14) Asthma Bipolar 2 disorder Chronic back pain Constipation COPD (chronic obstructive pulmonary disease) Depression Diabetes mellitus Discharge planning issues DM2 (diabetes mellitus, type 2) Drug abuse, opioid type Dysphonia (10/06/14) GERD (gastroesophageal reflux disease) GERD with apnea (10/06/14) Glaucoma, left eye History of depression (09/20/12) Hyperlipidemia Hypertension Hypertension Lumbosacral radiculopathy Marijuana abuse Myopia, bilateral Obesity Obesity Onychomycosis Pneumonia Presbyopia PTSD (post-traumatic stress disorder) Radiculopathy of lumbar region Scrotal abscess (02/04/14) Sleep apnea Sleep disturbance Stage 2 moderate COPD by GOLD classification Tobacco abuse Tobacco use disorder (10/06/14) Surgical History Colonoscopy - MAC not completed due to incomplete prep Social History Smoking/Tobacco Use Status: Current every day Tobacco Type: cigarettes Quit status: considering quitting Smoking risk assessment performed?: Yes Alcohol Intake: never Drug use: Daily Substance use type: marijuana Details: pt states that he smokes marijuana daily Household members: family Housing: house current occupation: off work right now until july Current gender identity: male What is your relationship status?: Panel score (0-1 are the most socially isolated patients): 0 What type of physical activity do you participate in: none Do you feel safe at home: Yes Do you feel safe in your relationship?: Yes Exam <Dillon Juan MD - Last Filed: 09/30/20 15:24> Narrative Exam Narrative: GEN: awake, alert, oriented 3. Pleasant, well groomed, interactive. HEAD: Normocephalic, atraumatic ENT: Mucous membranes moist, oropharynx unremarkable, External ear exam unremarkable EYES: PERRL, EOMI NECK: Full ROM, no XANDER, no menigismus CHEST/RESP: Nontender, clear to auscultation bilateral, no wheeze/rhonchi/rales CARDIOVASCULAR: RRR, no murmur, rub manuel. 2+ Rad pulse bilateral ABDOMEN: Soft, tender in the left upper quadrant to palpation., no mass. +Bowel sounds EXT: Full ROM, no edema, bilateral dorsum of the feet with excoriated area with mild blanching erythema. Neuro: Grossly normal neurologic exam, conversant, interactive. Psych: Speech fluent, thoughts congruent, affect normal Course <Dillon Juan MD - Last Filed: 09/30/20 15:24> Vital Signs Vital signs: Vital Signs Temperature 36.6 C 09/30/20 11:46 Pulse 63 09/30/20 11:46 Respiratory Rate 18 09/30/20 11:46 Blood Pressure 149/82 H 09/30/20 11:46 Pulse Oximetry 96 09/30/20 11:46 Temperature 36.6 C 09/30/20 11:46 Temperature Source Skin 09/30/20 11:46 Pulse 63 09/30/20 11:46 Respiratory Rate 18 09/30/20 11:46 Respiratory Effort 09/30/20 11:58 Respiratory Depth Normal 09/30/20 11:54 Respiratory Pattern Normal 09/30/20 11:54 Blood Pressure 149/82 H 09/30/20 11:46 Blood Pressure Position Supine 09/30/20 11:46 Pulse Oximetry 96 09/30/20 11:46 Oxygen Delivery Method Room Air 09/30/20 11:46 Oxygen Flow Rate 0 09/30/20 11:46 Pain Level 2 09/30/20 11:46 Sign Out <Dillon Juan MD - Last Filed: 09/30/20 15:24> Sign Out Data: Sign Out Comment: Followup Trop, consider outpatient stress Last updated by Dillon Juan MD at 09/30/20 15:24
--- OUTSIDE RECORDS SUMMARY | 2020-09-30 12:09 | XMS_ITS ---
:1965 Author Care Team Providers Name Role Phone GARCÍA ANDRE Primary Care Provider [phone] GARCÍA ANDRE Referring Provider [phone] Allergies Code Code System Name Reaction Severity Status Onset 3355 RxNorm Diclofenac ? ? Active ? 6239 RxNorm Metformin ? ? Active ? 96555 RxNorm Misoprostol ? ? Active ? 73120 RxNorm Venlafaxine ? ? Active ? Notes: *Fish* *Nuts* Medications Name Status Start Date Stop Date ? ? Abilify 20 mg tablet Active ? Not availab le Take 1 tablet every day by oral route. acarbose 50 mg tablet Active ? Not availa ble Take 1 tablet 3 times a day by oral route. Adult Aspirin EC Low Strength Active ? No t available TAKE 1 (81 MG) TABLET BY ORAL ROUTE DAILY Advair HFA 230 mcg-21 mcg/actuation aerosol inhaler Active ? Not available Inhale 2 puffs twice a day by inhalation route. ammonium lactate 12 % topical cream Active ? Not available Apply 1 application twice a day by topical route as needed. atenolol 25 mg tablet Active ? Not availa ble Take 1 tablet every day by oral route. B-complex with vitamin C Active ? Not clint ilable TAKE 1 EVERYDAY Duragesic 100 mcg/hr transdermal patch Active ? Not available Apply 1 patch every 72 hours by transdermal route. EpiPen 2-Cristian 0.3 mg/0.3 mL injection, auto-injector Active ? Not available INJECT 0.3 MILLILITER (0.3 MG) BY INTRA MUSCULAR ROUTE ONCE NEEDED FOR ANAPHYLAXIS FreeStyle Lancets Active ? Not available TEST 3 TIMES A DAY FreeStyle Test Strips in vitro test Active ? Not available TEST 3 TIMES DAILY Fungi-Nail 25 % topical solution Active ? Not available Apply 1 application twice a day by topical route as directed fo r 30 days. Glipizide XL 10 mg tablet,extended release Active ? Not available Take 2 tablets every day by oral route. hydrocodone 10 mg-acetaminophen 325 mg tablet Active ? Not available Take 1 tablet twice a day by oral route. Lantus Solostar U-100 Insulin 100 unit/mL (3 mL) subcutaneous pe n Active ? Not available 100 UNITS BY SUBCUTANEOUS ROUTE EVERYNIGHT AT BEDTIME Lipitor 80 mg tablet Active ? Not availab le Take 1 tablet every day by oral route at bedtime. lisinopril 20 mg tablet Active ? Not avai lable Take 1 tablet every day by oral route. Lite Touch Insulin Pen [place] 31 gauge x 5/16 Active ? Not available INJECT 4 TIMES A DAY Minipress 2 mg capsule Active ? Not avail able Take 1 capsule every day by oral route in the evening. Nicoderm CQ 21 mg/24 hr daily transdermal patch Active ? Not available Apply 1 patch every day by transdermal route. Novolog Flexpen U-100 Insulin aspart 100 unit/mL (3 mL) subcutan eous Active ? Not available Inject 100 units 3 times a day by subcutaneous route with meals . omeprazole Active ? Not available TAKE 1 (20 MG) TABLET BY ORAL ROUTE DAILY peak flow meter Active ? Not available ProAir HFA 90 mcg/actuation aerosol inhaler Active ? Not available INHALE 2 PUFFS (180 MCG) BY INHALATION ROUTE BEFORE EXERCISE NEEDED Spiriva with HandiHaler 18 mcg and inhalation capsules Active ? Not available Inhale 1 capsule every day by inhalation route. Problems Name Status Onset Date Source ? Onychomycosis Active ? ? Type 2 Diabetes Mellitus Active ? ? Hyperlipidemia Active ? ? Bipolar II Disorder Active ? ? Anxiety Active ? ? Tobacco User Active ? ? Cannabis Abuse Active ? ? Depressive Disorder Active ? ? Glaucoma Active ? ? Myopia Active ? ? Presbyopia Active ? ? Hypertensive Disorder Active ? ? Chronic Obstructive Lung Disease Active ? ? Abscess of Scrotum Active ? ? Chronic Back Pain Active ? ? Sleep Apnea Active ? ? Sleep Pattern Disturbance Active ? ? Adult Health Examination Active ? ? Screening for Cancer Active ? ? Procedures None recorded. Results Lab Results None recorded. Past Encounters None recorded. Social History Tobacco Smoking Status Current Every Day Smoker Notes: Vaccine List Vaccine Type influenza, unspecified formulation 12/29/2010 12/20/2011 01/15/2013 01/13/2014 02/15/2016 novel [id number] 04/29/2009 pneumococcal polysaccharide [id number] 04/29/2009 07/16/2013 Td (adult) 12/12/2006 Tdap 03/24/2010 Plan of Care Reminders Provider Appointments None ? ? recorded. Lab None ? ? recorded. Referral None ? ? recorded. Procedures None ? ? recorded. Surgeries None ? ? recorded. Imaging None ? ? recorded. Vitals 04/03/2018 03:30PM FOLLOW UP Height Weight BMI Blood Pressure 162.56 cm 104.33 kg 39.5 kg/m2 132/62 mm[Hg] 04/19/2017 03:00PM NEW PATIENT Height Weight BMI Blood Pressure 162.56 cm 104.33 kg 39.5 kg/m2 126/68 mm[Hg]
--- OUTSIDE RECORDS SUMMARY | 2020-09-30 12:09 | XMS_ITS ---
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 ? Active ? Fish Derived ? ? Active ? 6809 RxNorm Metformin ? ? Active ? 68420 RxNorm Misoprostol ? ? Active ? Nut - ? ? Active ? Unspecified 99664 RxNorm Venlafaxine ? ? Active ? Medications Name Status Start Date Stop Date ? ? acarbose 50 mg tablet Active ? Not availa ble Advair Diskus 500 mcg-50 mcg/dose Completed ? 10/11/2019 powder for inhalation Advair HFA 230 mcg-21 mcg/actuation Completed ? 10/11/2019 aerosol inhaler ammonium lactate 12 % topical cream Completed ? 07/17/2020 amoxicillin 500 mg capsule Completed ? 07/17 amoxicillin 875 mg-potassium Completed ? 05/2020 clavulanate 125 mg tablet aspirin 81 mg tablet,delayed release Active ? Not available Take 1 tablet every day by oral route. atenolol 25 mg tablet Active ? Not availa ble atorvastatin 80 mg tablet Active ? Not av ailable azithromycin 250 mg tablet Completed ? 07/17 BD Ultra-Fine Mini Pen Needle 31 gauge Active ? Not available x 06/30 benzonatate 100 mg capsule Active ? Not a vailable chlorhexidine gluconate 0.12 % Active ? N ot available mouthwash diazepam 10 mg tablet Completed ? 07/17/2020 diazepam 5 mg tablet Completed ? 07/17/2020 doxycycline hyclate 100 mg tablet Active ? Not available Dulera 200 mcg-5 mcg/actuation HFA aerosol inhaler Completed ? 07/17/2020 Inhale 2 puffs twice a day by inhalation route. EpiPen 2-Cristian Active ? Not available Fluarix Quad 9241-2648 (PF) 60 mcg (15 Active ? Not available mcg x 4)/0.5 mL IM syringe FreeStyle Lancets 28 gauge Active ? Not a vailable FreeStyle Test strips Active ? Not availa ble gabapentin 800 mg tablet Active ? Not clint ilable glipizide ER 10 mg 24 hr tablet,extended release Active ? Not available Take 2 tablets every day by oral route. glipizide ER 10 mg tablet, extended Active ? Not available release 24 hr IBU 600 mg tablet Active ? Not available ipratropium 0.5 mg-albuterol 3 mg (2.5 Active ? Not available mg base)/3 mL nebulization soln Lantus Solostar U-100 Insulin 100 Active ? Not available unit/mL (3 mL) subcutaneous pen Latuda 80 mg tablet Active ? Not availabl e levofloxacin 750 mg tablet Completed ? 07/17 lisinopril 20 mg tablet Active ? Not avai lable Nicorette 2 mg gum Active ? Not available Chew 1 piece of gum every 2 hours by oral route. nicotine 21 mg/24 hr daily transdermal Active ? Not available patch Novolog Flexpen U-100 Insulin aspart Active ? Not available 100 unit/mL (3 mL) subcutaneous omeprazole 20 mg capsule,delayed Active ? Not available release prazosin 2 mg capsule Active ? Not availa ble prednisone 10 mg tablet Completed ? 07/18/19 21 prednisone 20 mg tablet Completed ? 07/18/19 21 ProAir HFA 90 mcg/actuation aerosol Active ? Not available inhaler Spiriva with HandiHaler 18 mcg and Completed ? 07/17/2020 inhalation capsules Stiolto Respimat 2.5 mcg-2.5 mcg/actuation solution for inhalati on Unknown ? Not available Inhale 2 puffs every day by inhalation route. temazepam 30 mg capsule Completed ? 07/18/19 21 Trelegy Ellipta 100 mcg-62.5 mcg-25 mcg powder for inhalation Ac tive ? Not available Inhale 1 puff every day by inhalation route. vitamin B comp and C no.3 Active ? Not av ailable zolpidem 5 mg tablet Completed ? 07/17/2020 Problems Name Status Onset Date Source ? Onychomycosis Active 08/14/2018 ? Diabetes Mellitus Active 08/14/2018 ? Bipolar II Disorder Active 08/14/2018 ? Anxiety Active 08/14/2018 ? Cannabis Abuse Active 08/14/2018 ? Drug Abuse Active 08/14/2018 ? Depressive Disorder Active 08/14/2018 ? Obstructive Sleep Apnea Syndrome Active 08/14/2018 ? Myopia Active 08/14/2018 ? Presbyopia Active 08/14/2018 ? Hypertensive Disorder Active 08/14/2018 ? Chronic Obstructive Lung Disease Active 08/14/2018 ? Abscess of Scrotum Active 08/14/2018 ? Disturbance in Sleep Behavior Active 08/14/2018 ? Electrocardiogram Abnormal Active 08/14/2018 ? Diabetic Foot Examination Active 08/14/2018 ? Glaucoma of Left Eye Active 08/14/2018 ? Procedures Date Name Performed by ? 10/11/2019 LDCT, Chest, for Lung Cancer Xray [facility] [address] [place], [place] [address] (Work [address]) 07/17/2020 CT, Chest, W/o Contrast Xray [facility] [address] [place], [place] [address] (Work Place) Results Lab Results None recorded. Past Encounters 07/17/2020 Chronic Obstructive Lung Disease; Obstru ctive Sleep Apnea Syndrome Shanae Riggs MD: [address] [place] [address] Dr [address] [address], Ph. 10/11/2019 Chronic Obstructive Lung Disease; Obstru ctive Sleep Apnea Syndrome; Smoker Shanae Riggs MD: [address] [place] [address] Dr [address] [address], Ph. Social History Tobacco Smoking Status Heavy Tobacco Smoker (1 PPD) Notes: 8 cigarettes daily. started at age 15 ye ars Vaccine List Vaccine Type COVID-19, mRNA, LNP-S, PF, 100 mcg/0.5 m L dose 07/16/2020 influenza, injectable, quadrivalent 02/28/2018 pneumococcal polysaccharide PPV23 04/29/2009 07/16/2013 Tdap 03/24/2010 Plan of Care Reminders Provider Appointments None ? ? recorded. Lab None ? ? recorded. Referral None ? ? recorded. Procedures None ? ? recorded. Surgeries None ? ? recorded. Imaging None ? ? recorded. Vitals 07/17/2020 11:45AM Office 30 Height Weight BMI Blood Pressure 161.29 cm 109 kg 41.9 kg/m2 126/65 mm[Hg] 10/11/2019 03:15PM Office 15 Height Weight BMI Blood Pressure 161.29 cm 107 kg 41.1 kg/m2 142/70 mm[Hg] 12/04/2018 01:15PM Office 30 Height Weight BMI Blood Pressure 161.29 cm 111.13 kg 42.7 kg/m2 130/62 mm[Hg] 09/27/2018 03:15PM Office 30 Height Weight BMI Blood Pressure 161.29 cm 109.72 kg 42.2 kg/m2 118/64 mm[Hg] 08/16/2018 03:00PM New Patient 45 Height Weight BMI Blood Pressure 161.29 cm 108.54 kg 41.7 kg/m2 120/72 mm[Hg]
--- OUTSIDE RECORDS SUMMARY | 2020-09-30 12:09 | XMS_ITS | Encounter Summary ---
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 Chronic obstructive lung dise ase .Patient with moderate to chuyita re obstructive airways disease and very heavy ongoing smoke exposure as well as previous granite exposure. Complete and immediate smoking cessation's was recommen ded and discussed, more than 3 minutes w as spent on that topic. He is doing very well with the Trelegy i andrealer, will leave that and he can use his albuterol rescue up to 4 times a day. On chest CT his multiple tiny lung nodul es are stable, but now he has a new fairly large right basilar groundglass opacity. This needs to be followed further to make sure that this is not infected devel oping low-grade adenocarcinoma. Therefor e 6 months follow-up CT is ordered which will be done in October. He also has minimally enlarged bilateral hilar and mediastinal nodes, likely related to the previous granite exposure. Patient is aware that I am leaving the [facility] in August, he will get the chest CT done in October and follow-up with Dr. Bhatti in the [facility] pulmonary clinic in November. I am making the arrangements He will continue with his supplemental o xygen at 2 L/min during exertion ? smoking cessation counseli suzie, greater than 3 minutes up to 10 minutes ? CT, chest, w/o contrast - Due October, to follow-up on previously seen new groundglass opacity in the righ t lung base 2. Obstructive sleep apnea syndr ome His sleep apnea is well contro lled on the current BiPAP setting with 1 L/min supplemental oxygen. He has good compliance. . Weight loss was advised. He is not happy with the new pressu re settings on the new machine. I change d the IMAX to 25, decreased the maximum inspiratory time from 2 to 1.5 and left the minimum inspiratory time at 0.3, and took off the 5-minute ramp to 0. He will let me know how he feels with [facility] new settings. This way his new settings will be with 1 L/min oxygen Compliance download 06/17/2020?07/16/2020 sh ows more than 4 hours per night compliance of 100%, 95th percentile pressure 22/18, maximum average pressure 19/15, average residual AHI 2.2/h, on auto BiPAP Discussion Note 30+ minutes was spent chart christy g, reviewing history and counseling and providing medical care. Patient educational handouts: No information available. Plan of Care Reminders Provider Appointments None ? ? recorded. Lab None ? ? recorded. Referral None ? ? recorded. Procedures None ? ? recorded. Surgeries None ? ? recorded. Imaging CT, Chest, [facility] X ray W/o Contrast 07/17/2020 Medications Name Start Date ? ? acarbose 50 mg tablet ? TAKE 2 TABS IN am AND 1 TAB AT HS aspirin 81 mg tablet,delayed release ? Take 1 tablet every day by oral route. atenolol 25 mg tablet ? Take 1 tablet every day by oral route. atorvastatin 80 mg tablet ? Take 1 tablet every day by oral route. BD Ultra-Fine Mini Pen Needle 31 gauge x 06/30 ? benzonatate 100 mg capsule ? chlorhexidine gluconate 0.12 % mouthwash ? doxycycline hyclate 100 mg tablet ? EpiPen 2-Cristian ? Fluarix Quad [id number] (PF) 60 mcg (15 mcg x 4)/0.5 mL IM syringe ? FreeStyle Lancets 28 gauge ? FreeStyle Test strips ? gabapentin 800 mg tablet ? glipizide ER 10 mg 24 hr tablet,extended release ? Take 2 tablets every day by oral route. glipizide ER 10 mg tablet, extended release 24 hr ? IBU 600 mg tablet ? ipratropium 0.5 mg-albuterol 3 mg (2.5 mg base)/3 mL n ebulization ? soln Nellie Bonnerar U-100 Insulin 100 unit/mL (3 mL) subcu taneous pen ? Inject 100 units every day by subcutaneous route. Latuda 80 mg tablet ? Take 1 tablet every day by oral route. lisinopril 20 mg tablet ? Take 1 tablet every day by oral route. Nicorette 2 mg gum ? Chew 1 piece of gum every 2 hours by oral route. nicotine 21 mg/24 hr daily transdermal patch ? Apply 1 patch every day by transdermal route. Novolog Flexpen U-100 Insulin aspart 100 unit/mL (3 mL ) subcutaneous ? Inject 20 units 3 times a day by subcutaneous route w ith meals. omeprazole 20 mg capsule,delayed release ? Take 1 capsule every day by oral route. prazosin 2 mg capsule ? Take 1 capsule 3 times a day by oral route. ProAir HFA 90 mcg/actuation aerosol inhaler ? Inhale 2 puffs every 4 hours by inhalation route as n eeded. Trelegy Ellipta 100 mcg-62.5 mcg-25 mcg powder for inh alation ? Inhale 1 puff every day by inhalation route. vitamin B comp and C no.3 ? Medications Administered None recorded. Vitals Height Weight BMI Blood Pressure 5 ft 3.5 in 109 kg 41.9 kg/m2 126/65 mm[Hg] Results Lab Results None recorded. Allergies Code Code System Name Reaction Severity Onset 3168 RxNorm Diclofenac ? ? ? Fish Derived ? ? ? 8380 RxNorm Metformin ? ? ? 76593 RxNorm Misoprostol ? ? ? Nut - Unspecified ? ? ? 18965 RxNorm Venlafaxine ? ? ? Problems Name Status Onset Date Source ? [...] ? Procedures Date Name Performed by ? 07/17/2020 CT, Chest, W/o Contrast Xray [facility] [address] [place], [place] [address] (Work Place) Vaccine List Vaccine Type COVID-19, mRNA, LNP-S, PF, 100 mcg/0.5 m L dose 07/16/2020 influenza, injectable, quadrivalent 02/28/2018 pneumococcal polysaccharide PPV23 04/29/2009 07/16/2013 Tdap 03/24/2010 Social History Tobacco Smoking Status Heavy Tobacco Smoker (1 Notes: 8 c igarettes PPD) daily. started at a ge 15 years Alcohol intake None Exposure to Asbestos N Exposure to Chemicals or Toxins Y Pets? N Blind or serious difficulty N seeing Language Difficulties No Most Recent Tobacco Use 08/16/2018 Screening Caffeine intake Notes: 10 cups co ffee daily Exposure to Silica Y Tobacco-years of use 39 Functional Status No Impairment. Past Encounters 07/17/2020 Chronic Obstructive Lung Disease; Obstru ctive Sleep Apnea Syndrome Shanae Riggs MD: [address] [place] [address] Dr cheng [address], [place] [address], Ph. History of Present Illness Note: <p>54-year-old man who comes in for follow-up on COPD, dyspnea, hilar adenopathy, tobaccoabuse and known recent low-dose CT screening for lung cancer and obstructive sleep apnea</p><p>.</p><p>He also has a history of very severe obstructive sleep apnea on PSG on 08/24/2012 with a BMI of 37.4, AHI 90/h, saturation cierra 54%, PLM index 43.2/h, PLM arousal index 1.3/h.Titration study 10/08/2012 with a BMI of 39.4 shows BiPAP was recommended. The patient is on Auto BiPAP with 1 L/min supplemental oxygen bled in,Using it very compliantly benefiting a great deal, and very happy with the results.</p><p>His machine broke and got a new machine a bout 5 months ago, the previous IMAX of 25 was only set at 24 now. He feels he is not getting enoughpressure. His ramp is set at 5 minutes. He does not want ramp
</p><p>
</p><p>He was on Dulera and Spiriva but his insurance stopped covering, so he was switched over to Trelegy inhaler about 2 months ago. He is very happy with the results. His shortness of breath has improved with the inhalers. He is using albuterol up to 2–3 times per week. Today he is a little bit more short of breath than normal. Yesterday he got his first Covid shot. He has no coughing or sputum production, no fevers or chills. He is now on supplemental oxygen during the day on exertion at 2 L/min. He is compliant.
</p><p>He is cutting down on his cigarettes, currently smoking 8 cigarettes a day
</p><p>He offers no other complaints.</ p><p>
</p><p>Social history: He was a 3 pack a day smoker for 20 years, and a 1 pack a day smoker for 20 years. Currently cutting down, smoking 8 cigarettes a day. [id number] smoking history, started at age 14. 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 He then had a back injury and he has been disabled since. He has no pets in the house. No other inhaled irritant exposure.</p><p>
</p><p>Family history: Mother of COPD, no lung cancer, asthma or other lung disease in the family.</p><p><br&gt ;</p><p>
</p><p>PPSV 23 was done in 2014</p> Review of Systems ? Notes: <p>as above</p> Physical Exam ? Notes: <p>Obese middle-aged man in no acute distress</p><div>
</div><div>Chest: Bilateral air entry with colin ar breath sounds</div><div>No wheezing, Crepitations or crackles but he has prolonged expiratory phase on forceful exhalation.</div><div>
</div><div>Heart: S1-S2 normal
</div><div>
</d iv><div>Extremities: NO clubbing, +1 bilateral pitting pedal edema no cyano sis</div><div>
</div><div>Neuro: Alert Oriented ?3</div>
[2020-09-30 12:21] LABS: Abs Immature Grans 0.02 10^3/uL (0.0-0.06); Absolute Basophil Count 0.03 10^3/uL (0.0-0.2); Absolute Eosinophil Count 0.18 10^3/uL (0.0-0.7); Absolute Lymphocyte Count 2.11 10^3/uL (1.2-3.4); Absolute Monocyte Count 0.48 10^3/uL (0.1-0.8); Basophils % 0.4; Eosinophils % 2.1; HCT 41.7 % (40.0-50.0); HGB 14.1 g/dL (13.5-17.5); Immature Grans % 0.2; Lymphocytes % 24.8; MCH 30.4 pg (27.0-33.0); MCHC 33.8 % (32.0-36.0); MCV 89.9 fL (80-95); MPV 9.9 fL (8.0-11.0); Monocytes % 5.6; Neutrophils % 66.9; Nucleated RBC 0 %; Platelet Count 184 10^3/uL (130-400); RBC 4.64 10^6/uL (4.36-5.78); RDW 12.8 % (11.8-14.1); RDW-SD 42.4 fL; WBC 8.52 10^3/uL (4.4-10.8)
--- NOTE | 2020-09-30 12:34 | DI.RAD_ITS ---
Exam(s) XR CHEST 2V PA LATERAL EXAM: XR CHEST 2V PA LATERAL CLINICAL HISTORY: L anterior chest pain. TECHNIQUE: 2D digital imaging was performed. COMPARISON: CR XR CHEST 2V PA LATERAL from 01/16/2019 FINDINGS: Heart size upper normal mediastinum is not widened. There are no infiltrates but there is blunting of the right costophrenic angle now evident consistent with small pleural effusion, not previously present. There is no pneumothorax. IMPRESSION: New small right pleural effusion DATA REPOSITORY: RADIATION DOSE DELIVERED:
[2020-09-30 12:40] LABS: INR 1.1 (0.9-1.1); PTT Activated 23.9 sec (21.0-27.5); Prothrombin Time 10.6 sec (9.3-11.0)
[2020-09-30 12:55] LABS: ALT 51 U/L (16-63); AST 21 U/L (15-37); Albumin 3.7 g/dL (3.4-5.0); Alkaline Phosphatase 88 U/L (46-116); Anion Gap 8.1 mmol/L (3-11); BUN 13 mg/dL (7-18); Bilirubin, Total 0.4 mg/dL (0.2-1.0); CO2 27.9 mmol/L (21.0-32.0); Calcium 8.7 mg/dL (8.5-10.1); Chloride 104 mmol/L (98-107); Glucose 129 mg/dL (74-106); Lipase 60 U/L (73-393); Magnesium 1.8 mg/dL (1.8-2.4); NT-proBNP 27 pg/mL (<300); Potassium 4.3 mmol/L (3.5-5.1); Sodium 140 mmol/L (136-145); Total Protein 6.9 g/dL (6.4-8.2); Troponin I < 0.05 ng/mL (<0.06)
--- NOTE | 2020-09-30 13:51 | NUR.NOTE ---
meal tray provided Nursing Note:
--- NOTE | 2020-09-30 15:45 | RT.EKG_ITS ---
APPROVED REPORT Exam: Resting ECG Reason for Exam: chest pain Patient Location: E HR:81 bpm ECG Measurements Heart Rate 81 AXIS DE 160 P 63 QRSd 82 QRS 0 QT 365 T 57 QTc 423 Conclusion Sinus rhythm...normal P axis, V-rate 60- 99 Consider anteroseptal infarct...Q >30mS, dimin R, V1-V2 No STEMI. I have reviewed and interpreted ECG and agree with software generated interpretation.
[2020-09-30] MEDS: Sucralfate 1 GM TAB PO (16:33)
[2020-09-30] MEDS: Famotidine 20 MG TAB PO (16:34)
[2020-09-30 16:49] LABS: Troponin I < 0.05 ng/mL (<0.06)
[2020-09-30 17:13] LABS: D-Dimer 672 ng/mlFEU (<500)
--- NOTE | 2020-09-30 17:15 | DI.CT_ITS ---
Exam(s) CT CHEST PE CTA EXAM: CT CHEST PE CTA CLINICAL HISTORY: L sided chest pain, r/o PE. TECHNIQUE: Imaging Protocol: CT angiography of the chest was performed using pulmonary embolus aleja col. Multi planar reconstructions were performed. CONTRAST MATERIAL: Intravenous: Omnipaque 350 Contrast volume: 100 cc COMPARISON: CT CT CHEST LUNG CANCER SCREEN from 05/14/2020 FINDINGS: CHEST: PULMONARY ARTERIES: No intraluminal filling defects to suggest the presence of pulmonary emboli. LUNGS: Mild increased markings the sub apical right upper lobe are unchanged from 05/14/2020. Some in filtrate posteriorly in the left upper lobe apical posterior segment is again noted, unchanged. Also more peripherally in left upper lobe. There are no new ominous pulmonary nodules. Tiny amount of ple ural fluid bilaterally noted. MEDIASTINUM: Small lymph nodes in both hilar regions noted. No subcarinal adenopathy. Few small sli ghtly enlarged lymph nodes are noted in the anterior left mediastinal fat. There is no axillary felicia opathy. No supraclavicular adenopathy. Visualized thyroid unremarkable. CARDIAC: Heart size is upper normal. There is no pericardial effusion.Caliber of the thoracic aorta is within normal limits. There is no significant shift of the interventricular septum. PARTIALLY VISUALIZED UPPERMOST ABDOMEN: Hepatic steatosis noted OSSEOUS: Healed left 11th rib fracture is noted, partially included in the field of view. The 12th r ibs are not included in the field of view.. IMPRESSION: 1. No evidence of acute pulmonary emboli. No evidence of pulmonary infarction. 2. Mild increased markings in the lung pina are unchanged from the CT scan of 05/14/2020. However, the previously present ground-glass infiltrate in the right lower lobe posterior basal segment has r esolved. There is a tiny amount of pleural fluid bilaterally. 3. Slightly enlarged lymph nodes are noted in both hilar regions as well as the anterior left mediast inal fat. Hepatic steatosis. RADIATION DOSE DELIVERED: 423.05mGy.cm Total DLP DATA REPOSITORY: All CT scans at this facility are submitted to the National Radiology Data Registry (NRDR) Dose Index Registry (DIR) with the [employer] (ACR). RADIATION OPTIMIZATION: All CT scans at this facility use at least one of these dose optimization te chniques: automated exposure control; mA and/or kV adjustment per patient size (includes targeted exa ms where dose is matched to clinical indication); or iterative reconstruction.
[2020-09-30] MEDS: Omnipaque 350 MG/ML 100 ML BTL IV (18:15)
--- NOTE | 2020-09-30 18:37 | DI.VRAD_ITS ---
PROCEDURE INFORMATION: Exam: CTA Chest With Contrast Exam date and time: 09/30/2020 5:21 PM Age: 55 years old Clinical indication: Other: Left sided chest pain TECHNIQUE: Imaging protocol: Computed tomographic angiography of the chest with contrast. 3D rendering (Not supervised by radiologist): MIP and/or 3D reconstructed images were created by the technologist. Radiation optimization: All CT scans at this facility use at least one of these dose optimization techniques: automated exposure control; mA and/or kV adjustment per patient size (includes targeted exams where dose is matched to clinical indication); or iterative reconstruction. COMPARISON: CT CHEST LUNG CANCER SCREEN 05/14/2020 1:53 PM FINDINGS: Pulmonary arteries: Normal. No pulmonary emboli. Aorta: Unremarkable. No aortic aneurysm. No aortic dissection. Lungs: Linear scarring within the posterior aspect of the left upper and left lower lobe adjacent to the major fissure appears unchanged. No consolidation. No masses. Pleural spaces: Unremarkable. No pneumothorax. No pleural effusion. Heart: Unremarkable. No cardiomegaly. No pericardial effusion. Lymph nodes: Enlarged right hilar lymph node measuring 1.8 cm in short axis diameter appears unchanged. Shotty mediastinal adenopathy is incidentally noted. Liver: The liver appears diffusely decreased in density. Bones/joints: Chronic degenerative changes of the spine are present. Soft tissues: Unremarkable. IMPRESSION: 1. No evidence of pulmonary embolism. 2. No change in right hilar and mediastinal adenopathy. Fatty liver disease. Dictated and Authenticated by: Sekou Edwards MD. Ordering:HIMANSHU Charles MD
--- NOTE | 2020-09-30 18:47 | NUR.NOTE ---
Nursing Note: referal sent to surgery for upper quad pain needs endoscopy 09/30/20
== END 2020-09-30 18:50 | disposition home or self-care (01) ==
PROVIDERS: Emergency Medicine; Emergency Provider Physician Assistant; PCP Nurse Practitioner Family
DX: R10.12 Left upper quadrant pain (principal); R07.9 Chest pain, unspecified
CPT/HCPCS: 36415; 71275; 80053; 83690; 93005; 96374; 99285; 71046; 83735; 83880; 84484; 85025; 85379; 85610; 85730; 93010; 99283; J3490

== ENCOUNTER 2020-10-15 04:32 | Outpatient (CLI) | payer MEDICAID, SELFPAY ==
[2020-10-15 13:03] LABS: Abs Immature Grans 0.03 10^3/uL (0.0-0.06); Absolute Basophil Count 0.05 10^3/uL (0.0-0.2); Absolute Eosinophil Count 0.19 10^3/uL (0.0-0.7); Absolute Lymphocyte Count 2.41 10^3/uL (1.2-3.4); Absolute Monocyte Count 0.61 10^3/uL (0.1-0.8); Basophils % 0.4; Eosinophils % 1.7; HCT 44.4 % (40.0-50.0); HGB 14.8 g/dL (13.5-17.5); Immature Grans % 0.3; Lymphocytes % 21.4; MCH 30.1 pg (27.0-33.0); MCHC 33.3 % (32.0-36.0); MCV 90.4 fL (80-95); MPV 9.4 fL (8.0-11.0); Monocytes % 5.4; Neutrophils % 70.8; Nucleated RBC 0 %; Platelet Count 179 10^3/uL (130-400); RBC 4.91 10^6/uL (4.36-5.78); RDW 13.6 % (11.8-14.1); RDW-SD 45.7 fL; WBC 11.25 10^3/uL (4.4-10.8)
[2020-10-15 13:06] LABS: Absolute Neutrophil Count 7.97 10^3/uL (1.2-6.7)
[2020-10-15 13:22] LABS: COMMENT (LAB VIEW ONLY) 96.35 mg/dL; Microalb ug/mg Crea 7.5 ug/mg Cr
[2020-10-15 13:23] LABS: *AMPHETAMINES SCREEN URINE Negative (Negative); *BARBITURATES SCREEN URINE Negative (Negative); *BENZODIAZEPINES SCREEN URINE Negative (Negative); Cannabinoids THC Positive (Negative); Cocaine Screen,Urine Negative (Negative); METHADONE URINE SCREEN Negative (Negative); OPIATES URINE SCREEN Negative (Negative)
[2020-10-15 13:27] LABS: Hemoglobin A1C 7.4 % (<5.7)
[2020-10-15 13:29] LABS: Tricyclic Antidepressants Negative (Negative)
[2020-10-15 13:55] LABS: ALT 56 U/L (16-63); AST 22 U/L (15-37); Alkaline Phosphatase 91 U/L (46-116); BUN 22 mg/dL (7-18); Bilirubin, Total 0.4 mg/dL (0.2-1.0); CREATININE 1.3 mg/dL (0.70-1.30); Calcium 8.5 mg/dL (8.5-10.1); Calculated LDL 35 mg/dL (<100); Chloride 100 mmol/L (98-107); Cholesterol 114 mg/dL (<200); Glucose 297 mg/dL (74-106); HDL Cholesterol 24 mg/dL (40-60); Potassium 4.9 mmol/L (3.5-5.1); Sodium 137 mmol/L (136-145); TSH 0.82 uIU/mL (0.36-3.74); Total Protein 6.8 g/dL (6.4-8.2); Triglyceride 277 mg/dL (<150)
[2020-10-15 21:52] LABS: PSA, Screening 1.3 ng/mL (0.0-3.5)
== END 2020-10-15 04:33 | disposition home or self-care (01) ==
LOC: LBO 04:32
PROVIDERS: Physician Assistant; PCP Nurse Practitioner Family; Visit Provider Nurse Practitioner Psychiatric/Mental Health
DX: E78.5 Hyperlipidemia, unspecified (principal); E11.9 Type 2 diabetes mellitus without complications; I10 Essential (primary) hypertension; J44.9 Chronic obstructive pulmonary disease, unspecified; Z12.5 Encounter for screening for malignant neoplasm of prostate; F31.81 Bipolar II disorder; Z79.899 Other long term (current) drug therapy
CPT/HCPCS: 36415; 80053; 80061; 80307; 84153; 85027; 82043; 82570; 83036; 84443; 85025

== ENCOUNTER 2020-12-04 01:49 | Outpatient (CLI) | payer MEDICAID, SELFPAY | END 2020-12-04 01:50 | disposition home or self-care (01) | LOC: RT 01:49 | PROVIDERS: PCP Nurse Practitioner Family; Visit Provider Student in an Organized Health Care Education/Training Program ==

== ENCOUNTER 2021-02-08 00:30 | Outpatient (CLI) | payer MEDICAID, SELFPAY ==
--- NOTE | 2021-02-08 07:15 | DI.CT_ITS ---
Exam(s) CT CHEST WO EXAM: CT CHEST WO CLINICAL HISTORY: f/u pulmonary nodules,R91.8. TECHNIQUE: Multi planar reconstructions were performed. CONTRAST MATERIAL: None COMPARISON: CT CT CHEST PE CTA from 09/30/2020 FINDINGS: CHEST: LUNGS: There unchanged increased markings in the apical posterior segment of the left upper lobe and adjacent superior segment of the left lower lobe, unchanged. No new left lung findings. right lung is clear. No pleural effusions. Previously present small pleural effusions have resolved. MEDIASTINUM: There is no obvious hilar nor mediastinal adenopathy. Visualized thyroid unremarkable.No obvious axillary adenopathy CARDIAC: Heart size is normal. Mild thickening of the anterior pericardium consistent with small per icardial effusion. Maximum thickness is 5 millimeters. VISUALIZED UPPER ABDOMEN:No adrenal masses. Hepatic steatosis. No splenomegaly. OSSEOUS: No significant osseous lesions.Healed fracture of the left 11th rib posteriorly is unchanged . No acute rib fractures.. IMPRESSION: 1. Unchanged left upper lobe and adjacent superior segment left lower lobe findings. No new pulmonar y findings. No obvious intrathoracic adenopathy evident on this noninfused study. 2. Previously present bilateral pleural effusions have resolved. 3. Healed left 11th rib fracture is again noted, unchanged. No acute fractures evident. RADIATION DOSE DELIVERED: 784.08mGy.cm Total DLP DATA REPOSITORY: All CT scans at this facility are submitted to the National Radiology Data Registry (NRDR) Dose Index Registry (DIR) with the [employer] (ACR). RADIATION OPTIMIZATION: All CT scans at this facility use at least one of these dose optimization te chniques: automated exposure control; mA and/or kV adjustment per patient size (includes targeted exa ms where dose is matched to clinical indication); or iterative reconstruction.
== END 2021-02-08 00:50 ==
PROVIDERS: PCP Nurse Practitioner Family; Visit Provider Student in an Organized Health Care Education/Training Program
DX: R91.8 Other nonspecific abnormal finding of lung field (principal)
CPT/HCPCS: 71250

== ENCOUNTER 2021-08-25 00:32 | Outpatient (CLI) | payer MEDICAID, SELFPAY ==
--- NOTE | 2021-08-25 08:00 | DI.CT_ITS ---
Exam(s) CT CHEST WO EXAM: CT CHEST WO CLINICAL HISTORY: f/u YOGI nodule,r91.8 TECHNIQUE: Imaging Protocol: Axial computed tomography images with coronal and sagittal reformatted images were created and reviewed CONTRAST MATERIAL: Noncontrast COMPARISON: CT CT CHEST WO from 02/08/2021 FINDINGS: Tracheobronchial tree: No bronchiectasis or mucous plugging. Mediastinum and Jacki: Stable small mediastinal lymph nodes. No fluid collection. Pulmonary parenchyma: Scarring posterior and lateral right upper lobe. No consolidation or dominant measurable mass. Pleura: No effusion or pneumothorax. Heart: Trace pericardial effusion, stable. The heart is not dilated. No coronary artery calcificatio ns are seen. Aorta: Thoracic aorta non-dilated. Upper abdomen: Enlarged liver with marked fatty infiltration. Lymph nodes: Within normal limits. Bones: Degenerative disc changes. Soft tissues: Unremarkable. IMPRESSION: Residual scarring in the left lung. No evidence of infiltrate, mass or nodules. RADIATION DOSE DELIVERED: 726.75mGy.cm Total DLP DATA REPOSITORY: All CT scans at this facility are submitted to the National Radiology Data Registry (NRDR) Dose Index Registry (DIR) with the [employer] (ACR). RADIATION OPTIMIZATION: All CT scans at this facility use at least one of these dose optimization te chniques: automated exposure control; mA and/or kV adjustment per patient size (includes targeted exa ms where dose is matched to clinical indication); or iterative reconstruction.
== END 2021-08-25 00:52 ==
PROVIDERS: PCP Nurse Practitioner Family; Visit Provider Student in an Organized Health Care Education/Training Program
DX: R91.8 Other nonspecific abnormal finding of lung field (principal); J98.4 Other disorders of lung
CPT/HCPCS: 71250

== ENCOUNTER 2021-10-08 16:24 | Outpatient (REF) | payer MEDICAID, SELFPAY ==
--- OUTSIDE RECORDS SUMMARY | 2021-10-08 16:25 | XMS_ITS ---
:1965 Author Care Team Providers Name Role Phone GARCÍA POWELL Primary Care Provider [phone] GARCÍA ANDRE Referring Provider [phone] Allergies Code Code System Name Reaction Severity Status Onset 3356 RxNorm Diclofenac ? ? Active ? 1862 RxNorm Metformin ? ? Active ? 58380 RxNorm Misoprostol ? ? Active ? 90569 RxNorm Venlafaxine ? ? Active ? Notes: [...] by oral route. Lite Touch Insulin Pen Harbert 31 gauge x 5/16 Active ? Not [...] formulation 12/29/2010 12/20/2011 01/15/2013 01/13/2014 02/15/2016 novel [id number] 04/29/2009 pneumococcal polysaccharide PPV23 04/29/2009 07/16/2013 Td (adult) 12/12/2006 Tdap 03/24/2010 Plan of Care Reminders Provider Appointments None recorded. ? ? Lab None recorded. ? ? Referral None recorded. ? ? Procedures None recorded. ? ? Surgeries None recorded. ? ? Imaging None recorded. ? ? Vitals 04/03/2018 03:30PM FOLLOW UP Height Weight BMI Blood Pressure 162.56 cm 104.33 kg 39.5 kg/m2 132/62 mm[Hg] 04/19/2017 03:00PM NEW PATIENT Height Weight BMI Blood Pressure 162.56 cm 104.33 kg 39.5 kg/m2 126/68 mm[Hg]
--- OUTSIDE RECORDS SUMMARY | 2021-10-08 16:25 | XMS_ITS ---
:1965 Author Care Team Providers Name Role Phone [facility] Primary Care Provider [phone] [facility] [employer]P[facility]AT[facility] Primary Care Provider [phone] JOSE GILL Primary Care Provider [phone] Allergies Code Code System Name Reaction Severity Status Onset 335 RxNorm Diclofenac ? ? Active ? Fish Derived ? ? Active ? 3300 RxNorm Metformin ? ? Active ? 46096 RxNorm Misoprostol ? ? Active ? Nut - Unspecified ? ? Active ? 02375 RxNorm Venlafaxine ? ? Active ? Medications Name Status Start Date Stop Date ? ? acarbose 50 mg tablet Active ? Not availa ble Advair Diskus 500 mcg-50 mcg/dose powder for inhalation Complete d ? 10/11/2019 Advair HFA 230 mcg-21 mcg/actuation aerosol inhaler Completed ? 10/11/2019 ammonium lactate 12 % topical cream Completed ? 07/17/2020 amoxicillin 500 mg capsule Completed ? 07/17 amoxicillin 875 mg-potassium clavulanate 125 mg tablet Completed ? 07/17/2020 aspirin 81 mg tablet,delayed release Active ? Not available Take 1 tablet every day by oral route. atenolol 25 mg tablet Active ? Not availa ble atorvastatin 80 mg tablet Active ? Not av ailable azithromycin 250 mg tablet Completed ? 07/17 BD Ultra-Fine Mini Pen Needle 31 gauge x 06/30 Active ? Not available benzonatate 100 mg capsule Active ? Not a vailable chlorhexidine gluconate 0.12 % mouthwash Active ? Not available diazepam 10 mg tablet Completed ? 07/17/2020 diazepam 5 mg tablet Completed ? 07/17/2020 doxycycline hyclate 100 mg tablet Active ? Not available Dulera 200 mcg-5 mcg/actuation HFA aerosol inhaler Completed ? 07/17/2020 Inhale 2 puffs twice a day by inhalation route. EpiPen 2-Cristian Active ? Not available Fluarix Quad 4166-6204 (PF) 60 mcg (15 mcg x 4)/0.5 mL Active ? Not available IM syringe FreeStyle Lancets 28 gauge Active ? Not a vailable FreeStyle Test strips Active ? Not availa ble gabapentin 800 mg tablet Active ? Not clint ilable glipizide ER 10 mg 24 hr tablet,extended release Active ? Not available Take 2 tablets every day by oral route. glipizide ER 10 mg tablet, extended release 24 hr Active ? Not available IBU 600 mg tablet Active ? Not available ipratropium 0.5 mg-albuterol 3 mg (2.5 mg base)/3 mL Active ? Not available nebulization soln Lantus Solostar U-100 Insulin 100 unit/mL (3 mL) Active ? Not available subcutaneous pen Latuda 80 mg tablet Active ? Not availabl e levofloxacin 750 mg tablet Completed ? 07/17 lisinopril 20 mg tablet Active ? Not avai lable Nicorette 2 mg gum Active ? Not available Chew 1 piece of gum every 2 hours by oral route. nicotine 21 mg/24 hr daily transdermal patch Active ? Not available Novolog Flexpen U-100 Insulin aspart 100 unit/mL (3 mL) Active ? Not available subcutaneous omeprazole 20 mg capsule,delayed release Active ? Not available prazosin 2 mg capsule Active ? Not availa ble prednisone 10 mg tablet Completed ? 07/18/19 21 prednisone 20 mg tablet Completed ? 07/18/19 21 ProAir HFA 90 mcg/actuation aerosol inhaler Active ? Not available Spiriva with HandiHaler 18 mcg and inhalation capsules Completed ? 07/17/2020 Stiolto Respimat 2.5 mcg-2.5 mcg/actuation solution for [...] ? 10/11/2019 LDCT, Chest, for Lung Cancer Screening X ray [facility] [address], [place] [address] ([address]) 07/17/2020 CT, Chest, W/o Contrast Xray [facility] [address], [place] [address] (Work Place) Results Lab Results None recorded. 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 07/17/2020 Chronic Obstructive Lung Disease; Obstru ctive Sleep Apnea Syndrome Shanae Riggs MD: [address] [place] [address] Dr prosper Melo [address] [place] [phone], Ph. Social History Tobacco Smoking Status Heavy Tobacco Smoker (1 pack Notes: 8 cigarettes daily. per day) started at age 15 ye ars Vaccine List Vaccine Type COVID-19, mRNA, LNP-S, PF, 100 mcg/0.5 m L dose (Moderna) 07/16/2020 influenza, injectable, quadrivalent 02/28/2018 pneumococcal polysaccharide PPV23 04/29/2009 07/16/2013 Tdap 03/24/2010 Plan of Care Reminders Provider Appointments None recorded. ? ? Lab None recorded. ? ? Referral None recorded. ? ? Procedures None recorded. ? ? Surgeries None recorded. ? ? Imaging None recorded. ? ? Vitals 01/07/2021 12:30PM Office 30 Height Weight BMI Blood Pressure 161.29 cm 106.14 kg 40.8 kg/m2 137/69 mm[Hg] 12/30/2020 01:30PM Office 30 Height Weight BMI Blood Pressure 161.29 cm 106.37 kg 40.9 kg/m2 130/69 mm[Hg] 07/17/2020 11:45AM Office 30 Height Weight BMI [...]
[2021-10-08 18:50] LABS: ALT 71 U/L (16-63); AST 57 U/L (15-37); Alkaline Phosphatase 122 U/L (46-116); Anion Gap 7.8 mmol/L (3-11); BUN 18 mg/dL (7-18); Bilirubin, Total 0.3 mg/dL (0.2-1.0); CO2 29.2 mmol/L (21.0-32.0); COMMENT (LAB VIEW ONLY) 78.86 mg/dL; CREATININE 1.1 mg/dL (0.70-1.30); Calcium 9.2 mg/dL (8.5-10.1); Calculated LDL 60 mg/dL (<100); Chloride 99 mmol/L (98-107); Cholesterol 118 mg/dL (<200); Glucose 122 mg/dL (74-106); HDL Cholesterol 33 mg/dL (40-60); Microalb ug/mg Crea 2.5 ug/mg Cr; Potassium 4.4 mmol/L (3.5-5.1); Sodium 136 mmol/L (136-145); Total Protein 7.8 g/dL (6.4-8.2); Triglyceride 127 mg/dL (<150)
[2021-10-08 18:59] LABS: HCT 48.4 % (40.0-50.0); HGB 16.1 g/dL (13.5-17.5); MCH 30.4 pg (27.0-33.0); MCHC 33.3 % (32.0-36.0); MCV 92 fL (80-95); Platelet Count 216 10^3/uL (130-400); RBC 5.29 10^6/uL (4.36-5.78); RDW 12.6 % (11.8-14.1); RDW-SD 42.2 fL; WBC 12.08 10^3/uL (4.4-10.8)
[2021-10-08 19:47] LABS: Hemoglobin A1C 8.5 % (<5.7)
== END 2021-10-08 16:25 | disposition home or self-care (01) ==
LOC: NCHCN 16:24
PROVIDERS: PCP Nurse Practitioner Family; Visit Provider Physician Assistant
DX: E11.9 Type 2 diabetes mellitus without complications (principal); I10 Essential (primary) hypertension
CPT/HCPCS: 80053; 80061; 85027; 82043; 82570; 83036

== ENCOUNTER → 2022-02-28 03:18 | Outpatient (CLI) | payer MEDICAID, SELFPAY ==
--- NOTE | 2022-02-28 08:05 | DI.CT_ITS ---
Exam(s) CT CHEST WO EXAM: CT CHEST WO CLINICAL HISTORY: f/u PULMONARY NODULE FOR STABILITY, R91.1. TECHNIQUE: Imaging protocol: Axial computed tomography images were obtained and coronal and sagittal reformatted images were created and reviewed. COMPARISON: CT CT CHEST LUNG CANCER SCREEN from 05/14/[address] CHEST WO from 08/25/2021 FINDINGS: Tracheobronchial tree: Patent where visualized. Pulmonary parenchyma: No consolidation or dominant measurable mass. Stable scarring posterior left up per lobe. Mild emphysematous changes. Pleura: No effusion or pneumothorax. Heart: The heart is not dilated. No coronary artery calcifications are seen. Stable trace pericardia l effusion versus pericardial thickening inferiorly. Aorta: Thoracic aorta non-dilated. Upper abdomen: Enlarged liver. Hepatic steatosis. Lymph nodes: Within normal limits. Stable mildly enlarged mediastinal lymph nodes. Bones:Degenerative changes thoracic spine. Old left lower rib fracture. IMPRESSION: Stable area of scarring left upper lobe. No suspicious pulmonary nodules. RADIATION DOSE DELIVERED: 680.52mGy.cm Total DLP 680.52mGy.cm Total DLP DATA REPOSITORY: All CT scans at this facility are submitted to the National Radiology Data Registry (NRDR) Dose Index Registry (DIR) with the [employer] (ACR). RADIATION OPTIMIZATION: All CT scans at this facility use at least one of these dose optimization te chniques: automated exposure control; mA and/or kV adjustment per patient size (includes targeted exa ms where dose is matched to clinical indication); or iterative reconstruction.
== END ==
PROVIDERS: Visit Provider Student in an Organized Health Care Education/Training Program
DX: R91.1 Solitary pulmonary nodule (principal)
CPT/HCPCS: 71250

== ENCOUNTER 2022-08-27 11:15 | Emergency (ER) | payer MEDICAID, SELFPAY ==
[2022-08-27 11:21] VITALS: BP 163/71; PULSE 89; RESP 18; TEMP 37.3; O2SAT 99
[2022-08-27] MEDS: Tetracaine 0.5% 4 ML BTL (11:33)
[2022-08-27] MEDS: Fluorescein STRIPS 100/BOX 1 MG (11:33)
--- NOTE | 2022-08-27 11:34 | W.ED.GENAD ---
Discharge Plan Disposition Patient Disposition: Home Discharge Details Clinical Impression: Abrasion, corneal Primary Care Provider: Zackery Hart ED Provider: Edison Harrington Home Meds and New Rx's Prescriptions: No Action (DME) pen needle, diabetic [BD Ultra-Fine Mini Pen Needle] 31 gauge x 3/16 needle See Rx Instructions .ROUTE .MEDSUPPLY Qty: 50 Rx Instructions: As directed (DME) FreeStyle Test Strip See Rx Instructions .ROUTE .MEDSUPPLY Qty: 10 Rx Instructions: As directed (DME) lancets [FreeStyle Lancets] 28 gauge misc See Rx Instructions .ROUTE .MEDSUPPLY Qty: 100 Rx Instructions: As directed ibuprofen [IBU] 600 mg tablet See Rx Instructions PO DIRECTED PRN Rx Instructions: PO as directed PRN; (DME) Oxygen Tank See Rx Instructions .ROUTE .MEDSUPPLY Qty: 1 Rx Instructions: As directed 2L oxygen during exertion, and 1L oxygen with BIPAP. zolpidem [Ambien] 10 mg tablet 10 mg PO QHS PRN varenicline 0.5 mg tablet 0.5 mg PO DAILY Qty: 3 0RF Rx Instructions: administer on days 1, 2, and 3 of therapy varenicline 0.5 mg tablet 0.5 mg PO BID Qty: 6 0RF Rx Instructions: administer on days 4, 5, and 6 of therapy varenicline 1 mg tablet 1 mg PO BID Qty: 56 4RF Breztri Aerosphere 160-9-4.8 mcg/actuation HFA aerosol inhaler 2 inh inhalation BID Qty: 10.7 12RF menthol-zinc oxide [Calmoseptine] 0.44-20.6 % ointment 1 applic topical QID PRN (Reason: skin irritation) Qty: 113 2RF Trulicity 1.5 mg/0.5 mL pen injector 1.5 mg subcut QWEEK Vraylar 1.5 mg capsule 1.5 mg PO DAILY buprenorphine-naloxone 8-2 mg tablet, sublingual 1 tab sublingual DAILY bisoprolol fumarate 10 mg tablet 10 mg PO DAILY glipizide 10 MG tablet 20 mg PO DAILY atenolol 25 MG tablet 25 mg PO DAILY Patient Comments: 01/08/14 pt unsure if still using. omeprazole 20 MG capsule,delayed release(DR/EC) 40 mg PO DAILY insulin aspart U-100 [Novolog PenFill U-100 Insulin] 100 UNIT/1 ML cartridge 20 unit SQ TID Patient Comments: sliding scale acarbose [Precose] 50 mg tablet 50 - 100 mg PO DIRECTED Patient Comments: 2 Tabs AM, 1 tab QHS. Rx Instructions: 2 tabs daily 1 tab hs albuterol sulfate [ProAir HFA] 90 mcg/actuation HFA aerosol inhaler 2 puff Inhalation PRN PRN lurasidone [Latuda] 80 MG tablet 80 mg PO DAILY ipratropium-albuterol 3 ML solution for nebulization 3 ml UPD Q6H PRN PRNQty: 30 0RF Patient Comments: only uses albuteral gabapentin 800 mg tablet 800 mg PO QID Patient Comments: TAKE ONE TABLET BY MOUTH FOUR TIMES A DAY FOR SCIATIC PAIN albuterol sulfate 2.5 mg /3 mL (0.083 %) Solution For Nebulization 2.5 mg inhalation Q4H PRN clonidine HCl 0.1 mg tablet 0.1 mg PO TID PRN Patient Comments: TAKE ONE TABLET BY MOUTH THREE TIMES A DAY NEEDED FOR ANXIETY trazodone 100 mg tablet 200 - 300 mg PO QHS Patient Comments: TAKE 2 3 TABLETS BY MOUTH AT BEDTIME buspirone 15 mg tablet 15 mg PO BID Patient Comments: TAKE ONE TABLET BY MOUTH TWICE A DAY melatonin 10 mg capsule 10 mg PO HS Patient Comments: TAKE ONE CAPSULE BY MOUTH EVERY DAY AT BEDTIME hydroxyzine HCl 50 mg tablet 50 mg PO TID PRN Patient Comments: TAKE ONE TABLET BY MOUTH THREE TIMES A DAY NEEDED atorvastatin [Lipitor] 80 MG tablet 1 tab PO HS lisinopril 20 MG tablet 20 mg PO DAILY epinephrine [EpiPen 2-Cristian] 0.3 MG/0.3 ML auto-injector 1 ea UD PRN PRN prazosin 2 MG capsule 4 mg PO HS insulin glargine [Lantus Solostar U-100 Insulin] 100 unit/mL (3 mL) insulin pen 100 unit Sub-Q QAM acetaminophen [Tylenol Extra Strength] 500 mg tablet 500 mg PO Q6H PRN (Reason: pain) Qty: 20 0RF Discharge Instructions Instructions: Corneal Abrasion (ED) Additional Instructions: Please use the ointment as prescribed. You may take Tylenol and or Motrin every 6 hours for the pain. Expect to feel better within 36 hours. 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 Discharge Data Discharge Date/Time-TO BE ENTERED AT DEPARTURE: 08/27/22 12:15 Medical Decision Making 49-year-old gentleman presents to the emergency room with right eye pain x1 day. Resolution of pain with tetracaine. He is diagnosed with a right corneal abrasion. He will be given a tetanus booster and sent home with erythromycin ointment Clinical impression. Corneal abrasion right eye HPI General Date/Time Provider Initiated Documentation: 08/27/22 11:34. HPI Narrative: Patient presents to the emergency room with right eye pain. He states he was folding some paper bags yesterday and inadvertently hit his eye wall with the bags. He has been having redness of the eye and tearing since then. No visual changes. No headaches no nausea no vomiting. Related Data Home Medications Medication Instructions Recorded Confirmed atenolol 25 mg tablet 25 mg PO DAILY 08/09/12 08/27/22 glipizide 10 mg tablet 20 mg PO DAILY 08/09/12 08/27/22 insulin aspart U-100 100 unit/mL 20 unit SQ TID 08/09/12 08/27/22 subcutaneous cartridge (Novolog PenFill U-100 Insulin aspart) omeprazole 20 mg capsule,delayed 40 mg PO DAILY 08/09/12 08/27/22 release atorvastatin 80 mg tablet (Lipitor) 1 tab PO HS 09/04/17 08/27/22 epinephrine 0.3 mg/0.3 mL 1 ea UD PRN PRN 09/04/17 08/27/22 injection, auto-injector (EpiPen 2-Cristian) lisinopril 20 mg tablet 20 mg PO DAILY 09/04/17 08/27/22 prazosin 2 mg capsule 4 mg PO HS 09/04/17 08/27/22 lurasidone 80 mg tablet (Latuda) 80 mg PO DAILY 09/05/17 08/27/22 ipratropium 0.5 mg-albuterol 3 mg 3 ml UPD Q6H PRN PRN #30 vials 09/08/17 08/27/22 (2.5 mg base)/3 mL nebulization soln acarbose 50 mg tablet (Precose) 50 - 100 mg PO DIRECTED 06/13/18 08/27/22 albuterol sulfate 90 mcg/actuation 2 puff inhalation PRN PRN 06/13/18 08/27/22 aerosol inhaler (ProAir HFA) insulin glargine 100 unit/mL (3 100 unit subcut QAM 08/27/18 08/27/22 mL) subcutaneous pen (Lantus Solostar U-100 Insulin) acetaminophen 500 mg tablet 500 mg PO Q6H PRN pain #20 tabs 06/09/19 08/27/22 (Tylenol Extra Strength) gabapentin 800 mg tablet 800 mg PO QID 08/05/20 08/27/22 albuterol sulfate 2.5 mg/3 mL 2.5 mg inhalation Q4H PRN 09/30/20 08/27/22 (0.083 %) solution for nebulization buspirone 15 mg tablet 15 mg PO BID 09/30/20 08/27/22 clonidine HCl 0.1 mg tablet 0.1 mg PO TID PRN 09/30/20 08/27/22 hydroxyzine HCl 50 mg tablet 50 mg PO TID PRN 09/30/20 08/27/22 melatonin 10 mg capsule 10 mg PO HS 09/30/20 08/27/22 trazodone 100 mg tablet 200 - 300 mg PO QHS 09/30/20 08/27/22 Oxygen #1 ea 10/29/20 08/27/22 blood sugar diagnostic (FreeStyle #10 ea 10/29/20 08/27/22 Test strips) ibuprofen 600 mg tablet (IBU) See Rx Instructions PO DIRECTED 10/29/20 08/27/22 PRN lancets 28 gauge (FreeStyle #100 ea 10/29/20 08/27/22 Lancets) pen needle, diabetic 31 gauge x #50 ea 10/29/20 08/27/2206/30 (BD Ultra-Fine Mini Pen Needle) zolpidem 10 mg tablet (Ambien) 10 mg PO QHS PRN 11/27/20 08/27/22 varenicline 0.5 mg tablet 0.5 mg PO BID #6 tabs 03/03/21 08/27/22 varenicline 0.5 mg tablet 0.5 mg PO DAILY #3 tabs 03/03/21 08/27/22 varenicline 1 mg tablet 1 mg PO BID #56 tabs 03/03/21 08/27/22 budesonide 160 mcg-glycopyr 9 2 inh inhalation BID #10.7 grams 03/04/22 08/27/22 mcg-formot 4.8 mcg/actuation HFA inhaler (Breztri Aerosphere) bisoprolol fumarate 10 mg tablet 10 mg PO DAILY 04/12/22 08/27/22 buprenorphine 8 mg-naloxone 2 mg 1 tab sublingual DAILY 04/12/22 08/27/22 sublingual tablet cariprazine 1.5 mg capsule 1.5 mg PO DAILY 04/12/22 08/27/22 (Vraylar) dulaglutide 1.5 mg/0.5 mL 1.5 mg subcut QWEEK 04/12/22 08/27/22 subcutaneous pen injector (Trulicity) menthol 0.44 %-zinc oxide 20.6 % 1 applic topical QID PRN skin 04/22/22 08/27/22 topical ointment (Calmoseptine) irritation #113 grams Previous Rx's Medication Instructions Recorded ipratropium 0.5 mg-albuterol 3 mg 3 ml UPD Q6H PRN PRN #30 vials 09/08/17 (2.5 mg base)/3 mL nebulization soln acetaminophen 500 mg tablet 500 mg PO Q6H PRN pain #20 tabs 06/09/19 (Tylenol Extra Strength) varenicline 0.5 mg tablet 0.5 mg PO BID #6 tabs 03/03/21 varenicline 0.5 mg tablet 0.5 mg PO DAILY #3 tabs 03/03/21 varenicline 1 mg tablet 1 mg PO BID #56 tabs 03/03/21 budesonide 160 mcg-glycopyr 9 2 inh inhalation BID #10.7 grams 03/04/22 mcg-formot 4.8 mcg/actuation HFA inhaler (Breztri Aerosphere) menthol 0.44 %-zinc oxide 20.6 % 1 applic topical QID PRN skin 04/22/22 topical ointment (Calmoseptine) irritation #113 grams Allergies Allergy/AdvReac Type Severity Reaction Status Date / Time Fish Containing Products Allergy Severe Anaphylaxsi Verified 04/22/22 10:44 s tree nut [Tree Nut] Allergy Severe Anaphylaxsi Verified 04/22/22 10:44 s metformin Allergy Unknown Per office Verified 04/22/22 10:44 H&P venlafaxine HCl AdvReac Severe seizures Verified 04/22/22 10:44 [From Effexor] diclofenac [Diclofenac] AdvReac Intermediate Headache Verified 04/22/22 10:44 misoprostol AdvReac Intermediate Headache Verified 04/22/22 10:44 General Stated Complaint: EyeProblem LINDY: 4 Review of Systems Narrative: Constitutional negative eyes see HPI ENT negative respiratory negative hematological negative neuro negative GI negative PFSH All Active Problems (Updated 08/27/22 @ 11:49 by Edison Harrington MD) Abrasion, corneal (Acute) Decubitus ulcer of buttock, stage 2 (Acute) Diabetes mellitus type II, uncontrolled (Acute) A1c is 8.5 Anal fistula (Acute) Chronic in nature with no active infection 04/22/22 Opioid dependence (Acute) Pulmonary nodule (Acute) Respiratory failure with hypoxia (Acute) Nicotine dependence, cigarettes, uncomplicated (Acute) COPD (chronic obstructive pulmonary disease) (Chronic) stage 3 - severe Pain, dental (Acute) Left upper quadrant abdominal pain (Acute) Chest pain (Acute) Epigastric pain (Acute) Diverticulosis (Acute) Mild chronic gastritis (Acute) Nausea (Acute) Constipation (Acute) Medical History (Updated 08/27/22 @ 11:49 by Edison Harrington MD) Abnormal EKG Abscess of perineum (12/02/15) Abscess, dental Anxiety (10/06/14) Asthma Bipolar 2 disorder Chronic back pain COPD (chronic obstructive pulmonary disease) Depression Diabetes mellitus Discharge planning issues DM2 (diabetes mellitus, type 2) Drug abuse, opioid type Dysphonia (10/06/14) Fatty liver GERD (gastroesophageal reflux disease) GERD with apnea (10/06/14) Glaucoma, left eye History of depression (09/20/12) Hyperlipidemia Hypertension Hypertension Left knee pain Lumbosacral radiculopathy Marijuana abuse Multiple pulmonary nodules Myopia, bilateral Obesity Obesity Onychomycosis Pneumonia Presbyopia PTSD (post-traumatic stress disorder) Radiculopathy of lumbar region Scrotal abscess (02/04/14) Sleep apnea Sleep disturbance Stage 2 moderate COPD by GOLD classification Tinea pedis Tobacco abuse Tobacco use disorder (10/06/14) Surgical History Colonoscopy - MAC not completed due to incomplete prep Family History (Updated 10/29/20 @ 09:23 by Kathie You) Mother COPD (chronic obstructive pulmonary disease) Social History (Updated 10/29/20 @ 09:22 by Kathie You) Smoking/Tobacco Use Status: Current every day Tobacco Type: cigarettes Tobacco: How many years used: 40 Quit status: considering quitting Smoking risk assessment performed?: Yes Alcohol Intake: never Drug use: Daily Substance use type: marijuana Household members: family Housing: house current occupation: off work right now until july Current gender identity: male What is your relationship status?: Panel score (0-1 are the most socially isolated patients): 0 What type of physical activity do you participate in: none Do you feel safe at home: Yes Do you feel safe in your relationship?: Yes Exam Narrative Exam Narrative: Awake alert Forbes x3 calm cooperative Eyes Visual Bishop: normal visual bishop by confrontation Alignment and Position: alignment normal Eyelids: eyelids normal Conjunctivae: other Cornea: fluorescein used (pickup inferior to the pupil overlying the irisrt eye) Pupils: PERRL and accommodation normal EOM: EOM intact bilaterally Resp Effort & Inspection: normal respiratory effort Course Vital Signs Vital signs: Vital Signs Temperature 37.3 C 08/27/22 11:21 Pulse 89 08/27/22 11:21 Respiratory Rate 18 08/27/22 11:21 Blood Pressure 163/71 H 08/27/22 11:21 Pulse Oximetry 99 08/27/22 11:21 Temperature 37.3 C 08/27/22 11:21 Temperature Source Oral 08/27/22 11:21 Pulse 89 08/27/22 11:21 Respiratory Rate 18 08/27/22 11:21 Blood Pressure 163/71 H 08/27/22 11:21 Blood Pressure Position Sitting 08/27/22 11:21 Pulse Oximetry 99 08/27/22 11:21 Oxygen Delivery Method Room Air 08/27/22 11:21 Oxygen Flow Rate 0 08/27/22 11:21
[2022-08-27] MEDS: Erythromycin Ophth Oint 3.5 GM TUBE OU (12:09)
== END 2022-08-27 12:15 | disposition home or self-care (01) ==
PROVIDERS: Emergency Provider Emergency Medicine; PCP Physician Assistant
DX: S05.01XA Injury of conjunctiva and corneal abrasion without foreign body, right eye, initial encounter (principal); X58.XXXA Exposure to other specified factors, initial encounter; Z23 Encounter for immunization
CPT/HCPCS: 90471; 99284

== ENCOUNTER 2022-12-07 12:34 | Outpatient (REF) | payer MEDICAID, SELFPAY ==
[2022-12-07 17:20] LABS: HCT 48.8 % (40.0-50.0); HGB 17.1 g/dL (13.5-17.5); MCH 31.5 pg (27.0-33.0); MCV 90 fL (80-95); Platelet Count 185 10^3/uL (130-400); RBC 5.42 10^6/uL (4.36-5.78); RDW 11.9 % (11.8-14.1); RDW-SD 39.4 fL; WBC 9.52 10^3/uL (4.4-10.8)
[2022-12-07 18:44] LABS: ALT 55 U/L (16-63); AST 24 U/L (15-37); Albumin 4.1 g/dL (3.4-5.0); Alkaline Phosphatase 103 U/L (46-116); Anion Gap 10.3 mmol/L (3-11); BUN 21 mg/dL (7-18); Bilirubin, Total 0.5 mg/dL (0.2-1.0); CO2 26.7 mmol/L (21.0-32.0); CREATININE 1.1 mg/dL (0.70-1.30); Calcium 9.3 mg/dL (8.5-10.1); Calculated LDL 76 mg/dL (<100); Chloride 97 mmol/L (98-107); Cholesterol 180 mg/dL (<200); Estimated GFR 77.81 (mL/min/1.73m2); Glucose 204 mg/dL (74-106); HDL Cholesterol 34 mg/dL (40-60); Potassium 4.5 mmol/L (3.5-5.1); Sodium 134 mmol/L (136-145); Total Protein 7.3 g/dL (6.4-8.2); Triglyceride 353 mg/dL (<150)
[2022-12-07 22:53] LABS: PSA, Screening 1.5 ng/mL (<=3.5)
[2022-12-08 10:39] LABS: Hepatitis C Ab w Rflx HCV PCR Negative (Negative)
== END 2022-12-07 12:35 | disposition home or self-care (01) ==
LOC: NCHCN 12:34
PROVIDERS: PCP Physician Assistant; Visit Provider Physician Assistant
DX: E11.9 Type 2 diabetes mellitus without complications (principal); K76.0 Fatty (change of) liver, not elsewhere classified; J44.9 Chronic obstructive pulmonary disease, unspecified; Z12.5 Encounter for screening for malignant neoplasm of prostate; R79.89 Other specified abnormal findings of blood chemistry
CPT/HCPCS: 80053; 80061; 84153; 85027; 86803; 83036

== ENCOUNTER 2023-03-13 19:16 | Outpatient (CLI) | payer MEDICAID, SELFPAY ==
[2023-03-13 13:29] LABS: Hemoglobin A1C 8.5 % (<5.7)
[2023-03-13 14:23] LABS: TSH (W/Ref FT4) 1.55 uIU/mL (0.36-3.74); Vitamin B12 795 pg/mL (193-986)
== END 2023-03-13 19:17 | disposition home or self-care (01) ==
LOC: LBO 19:17
PROVIDERS: PCP Physician Assistant; Visit Provider Registered Nurse
DX: F31.81 Bipolar II disorder (principal); Z79.899 Other long term (current) drug therapy
CPT/HCPCS: 36415; 82306; 82607; 83036; 84443

== ENCOUNTER → 2023-03-13 20:17 | Outpatient (CLI) | payer MEDICAID, SELFPAY ==
--- NOTE | 2023-03-13 14:15 | DI.CTLCSR_ITS ---
Exam(s) CT CHEST LUNG CANCER SCREEN EXAM: CT CHEST LUNG CANCER SCREEN CLINICAL HISTORY: Current smoker, F17.210 TECHNIQUE: Imaging Protocol: Axial computed tomography images with coronal and sagittal reformatted images were created and reviewed COMPARISON: CT CT CHEST WO from 08/25/[address] CHEST WO from 02/28/2022 FINDINGS: Tracheobronchial tree: Patent where visualized. Pulmonary parenchyma: No consolidation or dominant measurable mass. There is stable scarring seen sup erior segment of the left lower lobe and the left upper lobe and right upper lobe. No new infiltrate s are seen. Lung Nodules: None. Mediastinum and Jacki: No dominant adenopathy or fluid collection. The esophagus is unremarkable. Thyroid gland: Unremarkable. Lymph nodes: Unremarkable. Pleura: No effusion or pneumothorax. Heart: The heart is not dilated. Mild coronary artery calcification. Stable mild pericardial thicken ing or small pericardial effusion. Aorta: Thoracic aorta non-dilated.Atherosclerosis. Upper abdomen: Unremarkable. Soft Tissues: Unremarkable. Bones: Within normal limits. Old healed left rib fractures. IMPRESSION: No pulmonary nodules. Lung RADS Cat 1 - Negative: No nodules and definitely benign nodules Lung-RADS 1.0 CATEGORIES: Category 0 - Prior chest CT exam(s) being located for comparison. Category 1 - Annual screening in 12 months. No nodules or definitely benign nodules. Category 2 - Annual screening in 12 months. Benign appearance. Nodules with low likelihood of becomin g active cancer. Category 3 - 6-month follow-up. Probably benign. Short-term follow-up suggested. Nodules with low lik elihood of becoming active cancer. Category 4A - 3-month follow-up and CT/PET if >8 mm in size. Suspicious finding. Findings which requi re additional testing. Category 4B - Findings which require additional testing and tissue sampling. Suspicious finding. Category 4X - Category 3 or 4 nodules with additional features or imaging findings that increases the suspicion of malignancy. Modifier S- Potentially clinically significant finding. (Non lung cancer) RADIATION DOSE DELIVERED: Total DLP Total DLP DATA REPOSITORY: All CT scans at this facility are submitted to the National Radiology Data Registry (NRDR) Dose Index Registry (DIR) with the [employer] (ACR). RADIATION OPTIMIZATION: All CT scans at this facility use at least one of these dose optimization te chniques: automated exposure control; mA and/or kV adjustment per patient size (includes targeted exa ms where dose is matched to clinical indication); or iterative reconstruction.
== END ==
PROVIDERS: PCP Physician Assistant; Visit Provider Registered Nurse
DX: F17.210 Nicotine dependence, cigarettes, uncomplicated (principal); Z12.2 Encounter for screening for malignant neoplasm of respiratory organs
CPT/HCPCS: 71271

== ENCOUNTER 2023-06-08 15:26 | Outpatient (REF) | payer MEDICAID, SELFPAY ==
[2023-06-08 19:04] LABS: ALT 43 U/L (16-63); AST 19 U/L (15-37); Albumin 4.1 g/dL (3.4-5.0); Alkaline Phosphatase 120 U/L (46-116); BUN 17 mg/dL (7-18); Bilirubin, Total 0.6 mg/dL (0.2-1.0); CREATININE 1.2 mg/dL (0.70-1.30); Chloride 103 mmol/L (98-107); Estimated GFR 69.66 (mL/min/1.73m2); Glucose 183 mg/dL (74-106); Potassium 4.4 mmol/L (3.5-5.1); Sodium 140 mmol/L (136-145); Total Protein 7.3 g/dL (6.4-8.2)
[2023-06-08 19:10] LABS: Hemoglobin A1C 8.4 % (<5.7)
== END 2023-06-08 15:27 | disposition home or self-care (01) ==
LOC: NCHCN 15:26
PROVIDERS: PCP Physician Assistant; Referring Provider Physician Assistant; Visit Provider Physician Assistant
DX: E11.9 Type 2 diabetes mellitus without complications (principal)
CPT/HCPCS: 80053; 83036

== ENCOUNTER 2024-03-22 00:10 | Outpatient (CLI) | payer MEDICAID, SELFPAY ==
--- NOTE | 2024-03-22 13:59 | DI.CTLCSR_ITS ---
Exam(s) CT CHEST LUNG CANCER SCREEN EXAM: CT CHEST LUNG CANCER SCREEN CLINICAL HISTORY: NICOTINE DEPENDENCE F17.210 TECHNIQUE: Imaging Protocol: Axial computed tomography images with coronal and sagittal reformatted images were created and reviewed. Lung Computer Aided Detection (CAD) was utilized. COMPARISON: CT CT CHEST WO from 02/28/[address] CHEST LUNG CANCER SCREEN from 03/13/2023 FINDINGS: Tracheobronchial tree: Patent where visualized. No bronchiectasis. Pulmonary parenchyma: No consolidation or dominant measurable mass. No architectural distortion. Lung Nodules: There is a new 5 mm nodule in the right lower lobe (series 2, image 115). Mediastinum and Jacki: No dominant adenopathy or fluid collection. The esophagus is unremarkable. Thyroid gland: Unremarkable. Lymph nodes: Unremarkable. Pleura: No effusion or pneumothorax. Heart: The heart is not dilated. Minimal coronary artery calcification. Stable mild pericardial thic kening or small pericardial effusion. Aorta: Thoracic aorta non-dilated.Atherosclerotic calcification is present. Upper abdomen: Unremarkable. Soft Tissues: Unremarkable. Bones: Within normal limits. IMPRESSION: New 5 mm right lower lobe pulmonary nodule. Lung RADS Cat 3 - Probably Benign: Probably benign finding(s) - short term follow-up suggested; inclu de nodules with a low likelihood of becoming a clinically active cancer. Lung-RADS 1.0 CATEGORIES: Category 0 - Prior chest CT exam(s) being located for comparison. Category 1 - Annual screening in 12 months. No nodules or definitely benign nodules. Category 2 - Annual screening in 12 months. Benign appearance. Nodules with low likelihood of becomin g active cancer. Category 3 - 6-month follow-up. Probably benign. Short-term follow-up suggested. Nodules with low lik elihood of becoming active cancer. Category 4A - 3-month follow-up and CT/PET if >8 mm in size. Suspicious finding. Findings which requi re additional testing. Category 4B - Findings which require additional testing and tissue sampling. Suspicious finding. Category 4X - Category 3 or 4 nodules with additional features or imaging findings that increases the suspicion of malignancy. Modifier S- Potentially clinically significant finding. (Non lung cancer) RADIATION DOSE DELIVERED: 35.7mGy.cm Total DLP 35.7mGy.cmTotal DLP DATA REPOSITORY: All CT scans at this facility are submitted to the National Radiology Data Registry (NRDR) Dose Index Registry (DIR) with the [employer] (ACR). RADIATION OPTIMIZATION: All CT scans at this facility use at least one of these dose optimization te chniques: automated exposure control; mA and/or kV adjustment per patient size (includes targeted exa ms where dose is matched to clinical indication); or iterative reconstruction.
== END 2024-03-22 00:30 ==
PROVIDERS: PCP Physician Assistant; Visit Provider Physician Assistant
DX: Z12.2 Encounter for screening for malignant neoplasm of respiratory organs (principal); F17.210 Nicotine dependence, cigarettes, uncomplicated; R91.1 Solitary pulmonary nodule
CPT/HCPCS: 71271

== ENCOUNTER 2024-07-02 16:35 | Outpatient (REF) | payer MEDICAID, SELFPAY ==
[2024-07-02 20:18] LABS: ALT 39 U/L (16-63); AST 16 U/L (15-37); Albumin 4.1 g/dL (3.4-5.0); Alkaline Phosphatase 125 U/L (46-116); Anion Gap 9.8 mmol/L (3-11); BUN 18 mg/dL (7-18); Bilirubin, Total 0.4 mg/dL (0.2-1.0); CO2 28.2 mmol/L (21.0-32.0); Calcium 9.1 mg/dL (8.5-10.1); Calculated LDL 44 mg/dL (<100); Chloride 103 mmol/L (98-107); Cholesterol 102 mg/dL (<200); Estimated GFR 86.16 (mL/min/1.73m2); Glucose 200 mg/dL (74-106); HDL Cholesterol 47 mg/dL (>or=40); Potassium 4.2 mmol/L (3.5-5.1); Sodium 141 mmol/L (136-145); Triglyceride 59 mg/dL (<150)
[2024-07-02 20:19] LABS: COMMENT (LAB VIEW ONLY) 30.18 mg/dL; Microalb ug/mg Crea 15.6 ug/mg Cr
== END 2024-07-02 16:36 | disposition home or self-care (01) ==
LOC: NCHCN 16:35
PROVIDERS: PCP Physician Assistant; Visit Provider Physician Assistant
DX: E11.9 Type 2 diabetes mellitus without complications (principal); E78.5 Hyperlipidemia, unspecified
CPT/HCPCS: 80053; 80061; 82043; 82570; 83036

== ENCOUNTER 2024-07-30 19:24 | Emergency (ER) | payer MEDICAID, SELFPAY ==
[2024-07-30] VITALS (38 sets, daily range): BP systolic 97–140; BP diastolic 49–74; PULSE 74–92; RESP 15–29; TEMP 37.3; O2SAT 82–99
--- NOTE | 2024-07-30 19:34 | W.ED.GENAD ---
Discharge Plan Discharge Details Chief Complaint: RespSymp Clinical Impression: COPD exacerbation Primary Care Provider: Zackery Hart ED Provider: Saima Dc Home Meds and New Rx's Prescriptions: New prednisone 20 mg tablet 40 mg PO DAILY 5 Days Qty: 10 0RF azithromycin 250 mg tablet 250 mg PO DAILY 4 Days Qty: 4 0RF Rx Instructions: start on day 2 of therapy No Action nicotine 21-14-7 mg/24 hr patch, TD daily, sequential See Rx Instructions transdermal .COMPLEX Qty: 56 0RF Rx Instructions: apply 1-21 mg NICOTINE PATCH daily for 28 days; follow with 1-14 mg PATCH daily for 14 days, then 1-7mg PATCH daily for 14 days transdermal (DME) pen needle, diabetic [BD Ultra-Fine Mini Pen Needle] 31 gauge x 3/16 needle See Rx Instructions .ROUTE .MEDSUPPLY Qty: 50 Rx Instructions: As directed (DME) FreeStyle Test Strip See Rx Instructions .ROUTE .MEDSUPPLY Qty: 10 Rx Instructions: As directed (DME) lancets [FreeStyle Lancets] 28 gauge misc See Rx Instructions .ROUTE .MEDSUPPLY Qty: 100 Rx Instructions: As directed ibuprofen [IBU] 600 mg tablet See Rx Instructions PO DIRECTED PRN Rx Instructions: PO as directed PRN; (DME) Oxygen Tank See Rx Instructions .ROUTE .MEDSUPPLY Qty: 1 Rx Instructions: As directed 2L oxygen during exertion, and 1L oxygen with BIPAP. varenicline tartrate 1 mg tablet 1 mg PO BID Qty: 56 4RF Ozempic 1 mg/dose (4 mg/3 mL) pen injector 1 mg subcut QWEEK Trulicity 1.5 mg/0.5 mL pen injector 1.5 mg subcut QWEEK Vraylar 1.5 mg capsule 1.5 mg PO DAILY buprenorphine-naloxone 8-2 mg tablet, sublingual 1 tab sublingual DAILY bisoprolol fumarate 10 mg tablet 10 mg PO DAILY Trelegy Ellipta 100-62.5-25 mcg blister with device 1 inh inhalation DAILY Qty: 60 6RF atenolol 25 MG tablet 25 mg PO DAILY Patient Comments: 01/08/14 pt unsure if still using. omeprazole 20 MG capsule,delayed release(DR/EC) 40 mg PO DAILY acarbose [Precose] 50 mg tablet 50 - 100 mg PO DIRECTED Patient Comments: 2 Tabs AM, 1 tab QHS. Rx Instructions: 2 tabs daily 1 tab hs insulin aspart U-100 [Novolog PenFill U-100 Insulin] 100 unit/mL cartridge 30 unit subcut TID albuterol sulfate [ProAir HFA] 90 mcg/actuation HFA aerosol inhaler 2 puff Inhalation PRN PRN gabapentin 800 mg tablet 800 mg PO QID Patient Comments: TAKE ONE TABLET BY MOUTH FOUR TIMES A DAY FOR SCIATIC PAIN albuterol sulfate 2.5 mg /3 mL (0.083 %) Solution For Nebulization 2.5 mg inhalation Q4H PRN clonidine HCl 0.1 mg tablet 0.1 mg PO TID PRN Patient Comments: TAKE ONE TABLET BY MOUTH THREE TIMES A DAY NEEDED FOR ANXIETY trazodone 100 mg tablet 200 - 300 mg PO QHS Patient Comments: TAKE 2 3 TABLETS BY MOUTH AT BEDTIME buspirone 15 mg tablet 15 mg PO BID Patient Comments: TAKE ONE TABLET BY MOUTH TWICE A DAY hydroxyzine HCl 50 mg tablet 50 mg PO TID PRN Patient Comments: TAKE ONE TABLET BY MOUTH THREE TIMES A DAY NEEDED epinephrine [EpiPen 2-Cristian] 0.3 MG/0.3 ML auto-injector 1 ea UD PRN PRN prazosin 2 MG capsule 4 mg PO HS insulin glargine [Lantus Solostar U-100 Insulin] 100 unit/mL (3 mL) insulin pen 100 unit Sub-Q QAM lisinopril 20 mg tablet 30 mg PO DAILY acetaminophen [Tylenol Extra Strength] 500 mg tablet 500 mg PO Q6H PRN (Reason: pain) Qty: 20 0RF Discharge Instructions Additional Instructions: Please call your primary care doctor and the research worker kitchen first thing in the morning to schedule follow-up appointments with both of them. You are being treated for COPD exacerbation. Please take the prednisone and azithromycin daily as prescribed. Continue using your albuterol nebulizers every 4 hours as needed for shortness of breath/wheezing. Continue using your oxygen at night as prescribed. Check your blood sugar regularly and use your sliding scale insulin as prescribed (the prednisone will raise your blood sugar) Return to emergency care if you develop new chest pains, difficulty breathing despite treatment, feel dizzy or like you are going to pass out, manias, or if you are very worried and need to be rechecked again immediately Referrals: [facility] Pulmonary Clinic [Provider Group] Zackery Hart [Primary Care Provider] - [facility] General Date/Time Provider Initiated Documentation: 07/30/24 19:25. [facility] Narrative: Ken is a 59 year old male who presents to the emergency department today for evaluation of shortness of breath with wheezing, cough productive of yellow sputum, and URI symptoms including chills, congestion, and headache. He reports symptoms started a couple of days ago, says it started with congestion, mild frontal headache, and cough. He reports shortness of breath with exertion. He reports chest tightness that is associated with wheezing, improves with use of his inhaler. Denies recorded fevers, sore throat, nausea/vomiting, abdominal pain, change in bowel or bladder function. Past medical history is significant for COPD, T2DM (well controlled with sliding scale insulin, last A1C 6.8), O2 use at night, multiple pulmonary nodules, GERD, HTN, HLD. Says he does have a history of bipolar, but has been able to tolerate prednisone in the past without difficulty, says has been a long time since he has had a COPD exacerbation. Physical exam remarkable for expiratory coarse wheezes in all lung pina. No retractions or stridor. Occasional cough productive of yellow sputum. O2 sat 88% on room air, improved to 92% on 1 L nasal cannula. Normal heart sounds. Moist mucous membranes. Normal oropharynx. Voice is clear. No cervical submandibular lymphadenopathy. D/dx includes but is not limited to: COPD exacerbation, pneumonia, viral illness I independently interpreted the following tests: EKG reassuring, normal sinus rhythm rate 75, no changes consistent with acute ischemia (no change from 09/30/20), Normal intervals. CBC, CMP, and VBG reassuring. COVID/flu/RSV negative. While in the emergency department, Ken received duonebs x 3 with full resolution of shortness of breath/wheezing/chest tightness, desaturations resolved and O2 sat remained in the 93-94% range after third neb. He also received prednisone p.o. and azithromycin. History and presentation consistent with COPD exacerbation. No indication at this time for inpatient management, patient is appropriate for outpatient management. Prednisone and azithromycin prescribed. Recommend close follow-up with PCP and pulmonology. Reviewed discharge instructions with patient, including symptomatic management and red flags indicating need for return to emergency care Related Data Home Medications ?Medication ?Instructions ?Recorded ?Confirmed atenolol 25 mg tablet 25 mg PO DAILY 08/09/12 07/30/24 omeprazole 20 mg capsule,delayed 40 mg PO DAILY 08/09/12 07/30/24 release epinephrine 0.3 mg/0.3 mL 1 ea UD PRN PRN 09/04/17 07/30/24 injection, auto-injector (EpiPen 2-Cristian) prazosin 2 mg capsule 4 mg PO HS 09/04/17 07/30/24 acarbose 50 mg tablet (Precose) 50 - 100 mg PO DIRECTED 06/13/18 07/30/24 albuterol sulfate 90 mcg/actuation 2 puff inhalation PRN PRN 06/13/18 07/30/24 aerosol inhaler (ProAir HFA) insulin glargine 100 unit/mL (3 100 unit subcut QAM 08/27/18 07/30/24 mL) subcutaneous pen (Lantus Solostar U-100 Insulin) acetaminophen 500 mg tablet 500 mg PO Q6H PRN pain #20 tabs 06/09/19 07/30/24 (Tylenol Extra Strength) gabapentin 800 mg tablet 800 mg PO QID 08/05/20 07/30/24 albuterol sulfate 2.5 mg/3 mL 2.5 mg inhalation Q4H PRN 09/30/20 07/30/24 (0.083 %) solution for nebulization buspirone 15 mg tablet 15 mg PO BID 09/30/20 07/30/24 clonidine HCl 0.1 mg tablet 0.1 mg PO TID PRN 09/30/20 07/30/24 hydroxyzine HCl 50 mg tablet 50 mg PO TID PRN 09/30/20 07/30/24 trazodone 100 mg tablet 200 - 300 mg PO QHS 09/30/20 07/30/24 Oxygen #1 ea 10/29/20 07/30/24 blood sugar diagnostic (FreeStyle #10 ea 10/29/20 07/30/24 Test strips) ibuprofen 600 mg tablet (IBU) See Rx Instructions PO DIRECTED 10/29/20 07/30/24 PRN lancets 28 gauge (FreeStyle #100 ea 10/29/20 07/30/24 Lancets) pen needle, diabetic 31 gauge x #50 ea 10/29/20 07/30/24 3/16 (BD Ultra-Fine Mini Pen Needle) varenicline tartrate 1 mg tablet 1 mg PO BID #56 tabs 03/03/21 07/30/24 bisoprolol fumarate 10 mg tablet 10 mg PO DAILY 04/12/22 07/30/24 buprenorphine 8 mg-naloxone 2 mg 1 tab sublingual DAILY 04/12/22 07/30/24 sublingual tablet cariprazine 1.5 mg capsule 1.5 mg PO DAILY 04/12/22 07/30/24 (Vraylar) dulaglutide 1.5 mg/0.5 mL 1.5 mg subcut QWEEK 04/12/22 07/30/24 subcutaneous pen injector (Trulicity) insulin aspart U-100 100 unit/mL 30 unit subcut TID 03/13/23 07/30/24 subcutaneous cartridge (Novolog PenFill U-100 Insulin aspart) nicotine See Rx Instructions transdermal 03/13/23 07/30/24 21mg/24hr-14mg/24hr-7mg/24hr daily .COMPLEX #56 patches transderm patches,sequentl fluticasone fur. 100 mcg-umeclid 1 inh inhalation DAILY #60 ea 03/14/23 07/30/24 62.5 mcg-vilant 25 mcg inhalat.powder (Trelegy Ellipta) lisinopril 20 mg tablet 30 mg PO DAILY 07/04/24 07/30/24 semaglutide 1 mg/dose (4 mg/3 mL) 1 mg subcut QWEEK 07/04/24 07/30/24 subcutaneous pen injector (Ozempic) azithromycin 250 mg tablet 250 mg PO DAILY 4 days #4 tabs 07/30/24 prednisone 20 mg tablet 40 mg (2 x 20 mg) PO DAILY 5 days 07/30/24 #10 tabs Previous Rx's ?Medication ?Instructions ?Recorded acetaminophen 500 mg tablet 500 mg PO Q6H PRN pain #20 tabs 06/09/19 (Tylenol Extra Strength) varenicline tartrate 1 mg tablet 1 mg PO BID #56 tabs 03/03/21 nicotine See Rx Instructions transdermal 03/13/23 21mg/24hr-14mg/24hr-7mg/24hr daily .COMPLEX #56 patches transderm patches,sequentl fluticasone fur. 100 mcg-umeclid 1 inh inhalation DAILY #60 ea 03/14/23 62.5 mcg-vilant 25 mcg inhalat.powder (Trelegy Ellipta) azithromycin 250 mg tablet 250 mg PO DAILY 4 days #4 tabs 07/30/24 prednisone 20 mg tablet 40 mg (2 x 20 mg) PO DAILY 5 days 07/30/24 #10 tabs Allergies Allergy/AdvReac Type Severity Reaction Status Date / Time Fish Containing Products Allergy Severe Anaphylaxsi Verified 07/30/24 19:31 s tree nut (Tree Nut) Allergy Severe Anaphylaxsi Verified 07/30/24 19:31 s metformin Allergy Unknown Per office Verified 07/30/24 19:31 H&P venlafaxine HCl (From AdvReac Severe seizures Verified 07/30/24 19:31 Effexor) diclofenac (Diclofenac) AdvReac Intermediate Headache Verified 07/30/24 19:31 misoprostol AdvReac Intermediate Headache Verified 07/30/24 19:31 varenicline (From Chantix) AdvReac Intermediate Nightmares Verified 07/30/24 19:31 General Stated Complaint: RespSymp LINDY: 3 Review of Systems Narrative: see HPI Exam Const General: cooperative, healthy appearing, comfortable and no acute distress Nutritional Appearance: average body habitus Orientation: alert and oriented x3 Resp Effort & Inspection: normal respiratory effort, able to speak in complete sentences and cough Auscultation: wheezes (course exp wheezes throughout) Cardio Rate: regular rate Rhythm: regular rhythm Course Vital Signs Vital signs: Vital Signs Temperature 37.3 C 07/30/24 19:28 Pulse 90 07/30/24 19:28 Respiratory Rate 24 07/30/24 19:28 Blood Pressure 130/65 07/30/24 19:28 Pulse Oximetry 93 07/30/24 19:28 Temperature 37.3 C 07/30/24 19:28 Pulse 90 07/30/24 19:28 Respiratory Rate 24 07/30/24 19:28 Blood Pressure 130/65 07/30/24 19:28 Blood Pressure Position Sitting 07/30/24 19:28 Pulse Oximetry 93 07/30/24 19:28 Oxygen Delivery Method Room Air 07/30/24 19:28 Oxygen Flow Rate 0 07/30/24 19:28 Medical Decision Making Imaging Data Radiologic Study: Radiologist's impression: PROCEDURE INFORMATION: Exam: XR Chest Exam date and time: 07/30/2024 8:23 PM Age: 59 years old Clinical indication: Cough and shortness of breath; Cough, SOB TECHNIQUE: Imaging protocol: Radiologic exam of the chest. Views: 2 views. COMPARISON: CT CHEST LUNG CANCER SCREEN 03/22/2024 1:55 PM FINDINGS: Lungs: Unremarkable. No consolidation. Pleural spaces: Unremarkable. No pleural effusion. No pneumothorax. Heart/Mediastinum: Unremarkable. No cardiomegaly. Bones/joints: Unremarkable. IMPRESSION: No acute findings. Quality:SDOH Health Related Social Needs: No Data to Display PFSH All Active Problems (Updated 07/30/24 @ 22:46 by Saima Carrillo) COPD exacerbation (Acute) Decubitus ulcer of buttock, stage 2 (Acute) Diabetes mellitus type II, uncontrolled (Acute) A1c is 8.5 Anal fistula (Acute) Chronic in nature with no active infection 04/22/22 Opioid dependence (Acute) Pulmonary nodule (Acute) Respiratory failure with hypoxia (Acute) Nicotine dependence, cigarettes, uncomplicated (Acute) COPD (chronic obstructive pulmonary disease) (Chronic) stage 3 - severe Pain, dental (Acute) Left upper quadrant abdominal pain (Acute) Chest pain (Acute) Epigastric pain (Acute) Diverticulosis (Acute) Mild chronic gastritis (Acute) Nausea (Acute) Constipation (Acute) Medical History (Updated 07/30/24 @ 22:46 by Saima Carrillo) Tinea pedis Fatty liver Left knee pain Multiple pulmonary nodules Abscess, dental Lumbosacral radiculopathy Abscess of perineum (12/02/15) Anxiety (10/06/14) Dysphonia (10/06/14) GERD with apnea (10/06/14) History of depression (09/20/12) Tobacco use disorder (10/06/14) Bipolar 2 disorder DM2 (diabetes mellitus, type 2) Sleep apnea Radiculopathy of lumbar region Sleep disturbance Stage 2 moderate COPD by GOLD classification Myopia, bilateral Glaucoma, left eye Presbyopia Onychomycosis Drug abuse, opioid type Abnormal EKG Obesity Hypertension Discharge planning issues GERD (gastroesophageal reflux disease) PTSD (post-traumatic stress disorder) Tobacco abuse Depression Pneumonia Obesity COPD (chronic obstructive pulmonary disease) Asthma Scrotal abscess (02/04/14) Marijuana abuse Hypertension Diabetes mellitus Hyperlipidemia Chronic back pain Surgical History Colonoscopy - MAC not completed due to incomplete prep Family History (Updated 10/29/20 @ 09:23 by Kathie You) Mother COPD (chronic obstructive pulmonary disease) Social History (Updated 10/29/20 @ 09:22 by Kathie You) Smoking/Tobacco Use Status: Current every day Tobacco Type: cigarettes Tobacco: How many years used: 40 Quit status: considering quitting Smoking risk assessment performed?: Yes Alcohol Intake: never Drug use: Daily Substance use type: marijuana Household members: family Housing: house current occupation: off work right now until july Current gender identity: male What is your relationship status?: Panel score (0-1 are the most socially isolated patients): 0 What type of physical activity do you participate in: none Do you feel safe at home: Yes Do you feel safe in your relationship?: Yes
--- NOTE | 2024-07-30 20:00 | DI.RAD_ITS ---
Exam(s) XR CHEST 2V PA LATERAL EXAM: XR CHEST 2V PA LATERAL CLINICAL HISTORY: cough, SOB. TECHNIQUE: 2D digital imaging was performed. COMPARISON: Prior chest x-ray 09/30/2020 FINDINGS: 2 views: Heart size is normal. The mediastinum is not widened. Right lung is clear. There is slightly increased markings in the left upper lobe, possibly developing infiltrate. No pleu ral effusions. No CHF. IMPRESSION: Mildly increased markings in the left upper lobe, possibly early infiltrate. Appropriate imaging fol low-up recommended. DATA REPOSITORY: RADIATION DOSE DELIVERED:
--- NOTE | 2024-07-30 20:15 | RT.EKG_ITS ---
APPROVED REPORT Exam: Resting ECG Reason for Exam: sob Patient Location: E HR:75 bpm ECG Measurements Heart Rate 75 AXIS LA 157 P 49 QRSd 86 QRS -71 QT 366 T 47 QTc 408 Conclusion Sinus rhythm...normal P axis, V-rate 60- 99 Left anterior fascicular block...axis(240,-40), init forces inf Anteroseptal infarct, age indeterminate...Q >35mS, T neg, V1-V2
[2024-07-30] MEDS: Albuterol/Ipratropium 3 ML UPD VIAL UPD ×3 (20:27→22:15)
[2024-07-30] MEDS: Azithromycin 250 MG TAB 500 MG PO (20:27)
[2024-07-30] MEDS: predniSONE 20 MG TAB 60 MG PO (20:27)
[2024-07-30 20:47] LABS: COVID-19 PCR Negative (Negative); Influenza A PCR Negative (Negative); Influenza B PCR Negative (Negative); RSV PCR Negative (Negative); Source Nasopharynx
[2024-07-30 20:48] LABS: Abs Immature Grans 0.03 10^3/uL (0.0-0.06); Absolute Basophil Count 0.06 10^3/uL (0.0-0.2); Absolute Eosinophil Count 0.18 10^3/uL (0.0-0.7); Absolute Lymphocyte Count 2.16 10^3/uL (1.2-3.4); Absolute Neutrophil Count 7.28 10^3/uL (1.2-6.7); Basophils % 0.6 %; Eosinophils % 1.7 %; HCT 46.9 % (40.0-50.0); HGB 15.7 g/dL (13.5-17.5); Immature Grans % 0.3 %; Lymphocytes % 20.6 %; MCH 31.5 pg (27.0-33.0); MCHC 33.5 % (32.0-36.0); MCV 94 fL (80-95); MPV 9.7 fL (8.0-11.0); Monocytes % 7.6 %; Neutrophils % 69.2 %; Platelet Count 194 10^3/uL (130-400); RBC 4.99 10^6/uL (4.36-5.78); RDW 11.7 % (11.8-14.1); RDW-SD 40.8 fL; WBC 10.51 10^3/uL (4.4-10.8)
[2024-07-30 21:05] LABS: ALT 68 U/L (16-63); AST 30 U/L (15-37); Albumin 3.8 g/dL (3.4-5.0); Alkaline Phosphatase 111 U/L (46-116); Anion Gap 5.9 mmol/L (3-11); BUN 17 mg/dL (7-18); Bilirubin, Total 0.5 mg/dL (0.2-1.0); CO2 32.1 mmol/L (21.0-32.0); CREATININE 1.2 mg/dL (0.70-1.30); Calcium 9.6 mg/dL (8.5-10.1); Chloride 103 mmol/L (98-107); Estimated GFR 69.23 (mL/min/1.73m2); Glucose 92 mg/dL (74-106); Potassium 4.2 mmol/L (3.5-5.1); Sodium 141 mmol/L (136-145); Total Protein 7.5 g/dL (6.4-8.2)
--- NOTE | 2024-07-30 21:17 | DI.VRAD_ITS ---
PROCEDURE INFORMATION: Exam: XR Chest Exam date and time: 07/30/2024 8:23 PM Age: 59 years old Clinical indication: Cough and shortness of breath; Cough, SOB TECHNIQUE: Imaging protocol: Radiologic exam of the chest. Views: 2 views. COMPARISON: CT CHEST LUNG CANCER SCREEN 03/22/2024 1:55 PM FINDINGS: Lungs: Unremarkable. No consolidation. Pleural spaces: Unremarkable. No pleural effusion. No pneumothorax. Heart/Mediastinum: Unremarkable. No cardiomegaly. Bones/joints: Unremarkable. IMPRESSION: No acute findings. Dictated and Authenticated by: Clive Schmitt MD. Orderin Corbin Landaverde MD
[2024-07-30 22:42] LABS: BE (Venous) 5 mmol/L (-2-3); HCO3 (Venous) 30 mmol/L (23-28); O2 Sat (Venous) 70 %; TCO2 (Venous) 27 mmol/L (24-29); pCO2 (Venous) 47 mmHg (41-51); pH (Venous) 7.41 (7.31-7.41); pO2 (Venous) 33 mmHg
== END 2024-07-30 23:01 | disposition home or self-care (01) ==
PROVIDERS: Emergency Provider Nurse Practitioner Family; PCP Physician Assistant
DX: J44.1 Chronic obstructive pulmonary disease with (acute) exacerbation (principal); E11.9 Type 2 diabetes mellitus without complications; I10 Essential (primary) hypertension; E78.5 Hyperlipidemia, unspecified; I44.4 Left anterior fascicular block; Z99.81 Dependence on supplemental oxygen
CPT/HCPCS: 36415; 80053; 82805; 87637; 93005; 94640; 99285; 71046; 85025; 93010; 99284; J7512; J7620

== ENCOUNTER 2024-08-28 02:07 | Outpatient (CLI) | payer MEDICAID, SELFPAY ==
--- NOTE | 2024-08-28 14:46 | DI.CT_ITS ---
Exam(s) CT CHEST WO EXAM: CT CHEST WO CLINICAL HISTORY: F/U 5 MM PULMONARY NODULE,R91.1,SHORT TERM F/U. TECHNIQUE: Multi planar reconstructions were performed. CONTRAST MATERIAL: None COMPARISON: CT CT CHEST LUNG CANCER SCREEN from 03/22/2024 FINDINGS: CHEST: LUNGS: The previously described small 5 mm noncalcified nodule in the right lung base-right lower lob e is no longer evident. There are presently no significant focal right lung findings. In the opposite-left lung there is unchanged scarring in the apicoposterior segment of the left upper lobe and adjacent superior segment of the left lower lobe., stable. No new left lung findings. MEDIASTINUM: No obvious hilar adenopathy. Small anterior mediastinal fat lymph nodes appear unchange d as is a small pretracheal right of center lymph node. No subcarinal adenopathy. Partially visuali zed thyroid unremarkable.No obvious axillary adenopathy CARDIAC: Heart size is normal. There is mild thickening of the anterior pericardium but less than pr evious. The pericardial effusion has decreased in size; presently minimal.Caliber of the thoracic ao rta is within normal limits. VISUALIZED UPPER ABDOMEN:No adrenal masses. No splenomegaly. OSSEOUS: No significant osseous lesions.No fractures.. IMPRESSION: 1. The previously present 5 millimeter noncalcified nodule in the right lung base is no longer seen. There are no new lung nodules nor pleural effusions nor intrathoracic adenopathy. 2. There is stable scarring in the posterior left lung involving the apical posterior segment of the left upper lobe and adjacent superior segment of the left lower lobe. RADIATION DOSE DELIVERED: 264.52mGy.cm Total DLP DATA REPOSITORY: All CT scans at this facility are submitted to the National Radiology Data Registry (NRDR) Dose Index Registry (DIR) with the [employer] (ACR). RADIATION OPTIMIZATION: All CT scans at this facility use at least one of these dose optimization te chniques: automated exposure control; mA and/or kV adjustment per patient size (includes targeted exa ms where dose is matched to clinical indication); or iterative reconstruction.
== END 2024-08-28 02:27 ==
LOC: DI 02:07
PROVIDERS: PCP Physician Assistant; Visit Provider Physician Assistant
DX: R91.1 Solitary pulmonary nodule (principal)
CPT/HCPCS: 71250

== ENCOUNTER 2024-10-24 16:18 | Outpatient (REF) | payer MEDICAID, SELFPAY ==
[2024-10-24 19:59] LABS: Hemoglobin A1C 6.6 % (<5.7)
[2024-10-25 19:16] LABS: PSA, Diagnostic 1.9 ng/mL (<=4.5)
== END 2024-10-24 16:19 | disposition home or self-care (01) ==
LOC: NCHCN 16:18
PROVIDERS: PCP Physician Assistant; Visit Provider Physician Assistant
DX: R30.0 Dysuria (principal); E11.9 Type 2 diabetes mellitus without complications
CPT/HCPCS: 83036; 84153